=== PATIENT | female | born 1965 | race Caucasian/White ===

== ENCOUNTER → 2017-10-22 09:54 | Outpatient (CLI) | payer OTHER, SELFPAY ==
--- NOTE | 2017-10-22 10:06 | EKG12_ITS ---
Test Reason : PRE-OP Blood Pressure : / mmHG Vent. Rate : 072 BPM Atrial Rate : 072 BPM P-R Int : 148 ms QRS Dur : 078 ms QT Int : 386 ms P-R-T Axes : 066 061 025 degrees QTc Int : 422 ms Normal sinus rhythm Possible Left atrial enlargement Borderline ECG Confirmed by ELLIE CLIFFORD, JOHN ([id number]), photo editor SIERRA MELO ([id number]) on 10/24/2017 3:06:06 PM Referred By: Preet Reed Confirmed By:JOHN ARGUETA MD
[2017-10-22 11:20] LABS: Hematocrit 28.6 % (37-47); Hemoglobin 8.7 g/dl (12.0-15.0); Mean Corp Hgb Conc 30.4 g/gl (32-36); Mean Corpuscular Volume 72.4 fL (81-99); Mean Platelet Vol. 9.3 fl (6.2-12.0); Platelet Count 180 K/mm3 (150-450); RBC Distribution Width CV 19.8 % (11.6-14.6); RBC Distribution Width SD 51.2 fl (35.1-43.9); Red Blood Count 3.95 M/mm3 (4.2-5.4); White Blood Count 5.4 K/mm3 (4.4-11.0)
[2017-10-22 11:21] LABS: Scan Indicated on CBC? Y/N YES- FLAGS NOTED
[2017-10-22 11:42] LABS: Anion Gap 7 (5-15); BUN 18 mg/dL (7-18); BUN/Creat Ratio 26.9 RATIO (10-20); Calcium,Total 8.3 mg/dL (8.5-10.1); Chloride 106 mmol/L (98-107); Creatinine, Serum 0.67 mg/dL (0.55-1.02); EST Glomerular Filtration Rate 99 mL/min (>60); Est Glom Filt Rate - Afr Amer 119 mL/min (>60); Glucose 80 mg/dL (74-106); Potassium 3.7 mmol/L (3.5-5.1); Sodium Level 139 mmol/L (136-145)
[2017-10-22 11:48] LABS: Differential Comment SCANNED
== END ==
PROVIDERS: Family Provider Family Medicine; PCP Family Medicine; Visit Provider Surgery
DX: Z01.810 Encounter for preprocedural cardiovascular examination (principal); Z01.812 Encounter for preprocedural laboratory examination; I87.2 Venous insufficiency (chronic) (peripheral); I83.11 Varicose veins of right lower extremity with inflammation; I83.12 Varicose veins of left lower extremity with inflammation; M79.662 Pain in left lower leg; M79.89 Other specified soft tissue disorders; I87.029 Postthrombotic syndrome with inflammation of unspecified lower extremity
CPT/HCPCS: 36415; 80048; 85027; 93005

== ENCOUNTER → 2017-10-24 14:41 | Outpatient (CLI) | payer OTHER, SELFPAY ==
[2017-10-24 15:57] LABS: Absolute Lymphocyte Count 1.25 X10^3/ul (0.83-4.51); Absolute Neutrophil Count 4.3 X10^3/uL (2.0-7.7); Basophil# 0.03 X10^3/uL; Basophil% 0.5 % (0-1); Eosinophil# 0.14 X10^3/uL; Eosinophils% 2.2 % (0-5); Hematocrit 31.7 % (37-47); Hemoglobin 9.4 g/dl (12.0-15.0); Lymphocyte # 1.25 X10^3/ul (4.0); Mean Corp Hgb Conc 29.7 g/gl (32-36); Mean Corpuscular Hgb 21.4 pg (27.0-32.0); Mean Platelet Vol. 8.7 fl (6.2-12.0); Monocyte# 0.53 X10^3/uL; Monocyte% 8.5 % (0-10); Neutrophil # 4.29 X10^3/uL (2.7-7.7); Neutrophil % 68.6 % (47-70); Platelet Count 186 K/mm3 (150-450); RBC Distribution Width CV 19.5 % (11.6-14.6); RBC Distribution Width SD 51.9 fl (35.1-43.9); White Blood Count 6.3 K/mm3 (4.4-11.0)
[2017-10-24 15:58] LABS: Differential Indicated SCAN CRITERIA MET; POSITIVE COUNT NO; POSITIVE DIFFERENTIAL NO; POSITIVE MORPHOLOGY YES
[2017-10-24 16:26] LABS: Ferritin 3 ng/mL (8-252); Iron 23 ug/dL (50-170); LDH 195 U/L (84-246)
== END ==
PROVIDERS: Family Provider Family Medicine; PCP Family Medicine; Visit Provider Family Medicine
DX: D50.9 Iron deficiency anemia, unspecified (principal)
CPT/HCPCS: 36415; 82728; 83540; 83615; 85025

== ENCOUNTER → 2017-11-06 10:41 | Outpatient (CLI) | payer OTHER, SELFPAY ==
--- NOTE | 2017-11-06 10:43 | VDLE_ITS ---
Reason For Study: LEG PAIN S/P EVLA Procedure LEFT Exam performed in department. CFV is compressible, spontaneous, phasic, competent, and demonstrates normal augmentation. FV is compressible, spontaneous, phasic, competent and demonstrates normal augmentation. POP V is compressible, spontaneous, phasic, competent and demonstrates normal augmentation. T/P Trunk is compressible. PTV is compressible. LT PerV is compressible. GSV occluded s/p EVLA Thrombus filled varicosities noted medial distal thigh and calf. Interpretation Summary Deep veins of the left lower extremity are patent and compressible segmentally. There is no evidence of left lower extremity deep vein thrombosis. Valvular competence appears intact within the proximal deep venous system on the left . The left great saphenous vein is occluded, consistent with a recent endothermal ablation procedure. Acute superficial thrombophlebitis is noted involving superficial varicosities in the left medial thigh and calf. Ordering Physician: Preet Reed Referring Physician: Preet Reed Performed By: Kyleigh Arizmendi RVT
== END ==
PROVIDERS: Family Provider Family Medicine; PCP Family Medicine; Visit Provider Surgery
DX: I87.2 Venous insufficiency (chronic) (peripheral) (principal); I83.10 Varicose veins of unspecified lower extremity with inflammation
CPT/HCPCS: 93971

== ENCOUNTER → 2018-01-19 09:47 | Outpatient (CLI) | payer OTHER, SELFPAY ==
--- NOTE | 2018-01-19 09:40 | VDLE_ITS ---
Reason For Study: CVI RIGHT LEFT CFV is compressible, spontaneous, phasic, CFV is compressible, spontaneous, phasic, competent and demonstrates normal competent, and demonstrates normal augmentation. augmentation. FV is compressible, spontaneous, phasic, FV is compressible, spontaneous, phasic, competent and demonstrates normal competent and demonstrates normal augmentation. augmentation. POP V is compressible, spontaneous, phasic, POP V is compressible, spontaneous, phasic, competent and demonstrates normal competent and demonstrates normal augmentation. augmentation. T/P Trunk is compressible. T/P Trunk is compressible. PTV is compressible. PTV is compressible. RT PerV is compressible. LT PerV is compressible. SFJ is INCOMPETENT GSV and SSv occluded s/p EVLA. GSV is INCOMPETENT with reflux greater than .5 sec and diameter of .54 x .52 cm GSV branch S5 INCOMPETENT with reflux greater than .5 sec and diameter of .48 x .55 cm SSV competent INCOMPETENT supervisor carpenters 15 cm prox to medial malleolus. Interpretation Summary Deep veins of the lower extremities are bilaterally patent and compressible segmentally. There is no evidence of deep vein thrombosis on either side. Valvular competence appears intact within the proximal deep venous systems bilaterally. The right greater saphenous vein appears patent and compressible segmentally. The right sapheno-femoral junction is incompetent . The right greater saphenous vein appears segmentally incompetent. The right small saphenous vein is patent and competent. The right accessory saphenous vein (S5) is incompetent. An incompetent supervisor carpenters vein is noted in the right calf, located 15 centimeters proximal to the right medial malleolus. The left greater saphenous vein and small saphenous vein are occluded, consistent with a prior endothermal ablation procedure. Ordering Physician: Preet Reed Referring Physician: Preet Reed Performed By: Kyleigh Arizmendi RVT
--- NOTE | 2018-01-19 09:47 | DT_ITS ---
This patient was seen during an EMR downtime January 19, 2018 - January 26, 2018. This patient may have a combination of paper and electronic documentation or all paper documentation. All documentation is viewable within the e-chart portion of [email or web address] for each patient visit.
== END ==
PROVIDERS: Family Provider Family Medicine; PCP Family Medicine; Visit Provider Surgery
DX: I87.2 Venous insufficiency (chronic) (peripheral) (principal); I83.10 Varicose veins of unspecified lower extremity with inflammation; Z86.72 Personal history of thrombophlebitis
CPT/HCPCS: 93970

== ENCOUNTER → 2019-01-07 | Outpatient (CLI) | payer OTHER, SELFPAY ==
--- NOTE | 2019-01-07 12:56 | RAD_ITS ---
STUDY: SWALLOWING STUDY REASON FOR EXAM: Female, 53 years old. Dysphagia. TECHNIQUE: The examination was performed with Speech Pathology in attendance. Under fluoroscopic observation, the patient ingested thin barium, thick barium, barium pudding, and barium coated cracker. FLUOROSCOPY TIME: 1:09 minutes/seconds. 1059 fluoroscopic images were obtained. RADIOLOGIST INVOLVEMENT: Radiologist was present and providing direct supervision. COMPARISON: None. FINDINGS: The following was observed during swallowing of the various mixtures of barium: Thin Barium: Transient penetration with ejection upon ingestion of thin liquids. Barium Pudding: There was no evidence of aspiration or laryngeal penetration. Barium Coated Cracker: There was no evidence of aspiration or laryngeal penetration. RAD/Swallowing Function w/Video IMPRESSION: Transient penetration with ejection upon ingestion of thin liquids. The swallow study findings were discussed with the patient by the speech pathologist at the conclusion of the examination. Please see speech pathology report for more information and recommendations. Electronically Signed: Armaan Carlos, at 13:32 EDT , Service support ,
--- NOTE | 2019-01-07 13:05 | SP.MBSS_ITS ---
PRIMARY / SECONDARY DIAGNOSIS: Dysphagia REFERRING PHYSICIAN: Dr. Abdulaziz Kaba CURRENT DIET: regular textures/thin liquids DENTITION: natural dentition in place MENTAL STATUS: WFL for participation in MBS RESPIRATORY STATUS: oxygenating on room air, denies any hx of pneumonia PREVIOUS MODIFIED BARIUM SWALLOW STUDY: n/a REASON FOR REFERRAL: Patient reports difficulty swallowing solid textures (ground beef, chicken, bread, maori fries), described as food ?getting stuck? and ?not going down? w/ patient pointing to sternal region to indicate location, suggestive of esophageal etiology MEDICAL HISTORY: patient denies any history pertinent to this study, denies head/neck surgery, denies prior CVA, denies GERD, denies any past/recurrent pneumonias, denies allergies, denies awareness of any neurological conditions STUDY FINDINGS: Patient participated in a Modified Barium Swallow (MBS) study on 01/07/2019. Dr. Carlos was the radiologist present for this evaluation. This study was recorded in the lateral view and images were sent to PACs for storage. The following consistencies were presented to this patient for analysis of oropharyngeal swallow function: honey thickened liquids and pudding. Results of the MBS are as follows: PENETRATION / ASPIRATION SCALE (GRANDA): 1 = does not enter airway 2 = enters airway/above vocal folds/ejected 3 = enters airway/above vocal folds/not ejected 4 = enters airway/contacts vocal folds/ejected 5 = enters airway/contacts vocal folds/not ejected 6 = enters airway/below vocal folds/ejected 7 = enters airway/below vocal folds/not ejected despite effort 8 = enters airway/below vocal folds/no effort PENETRATION / ASPIRATION SCALE (SCORE): 1. Thin liquid via teaspoon: 1 2. Thin liquid single sip via cup: 2 3. Thin liquid single sip via cup: 2 4. Thin liquid sequential swallows via cup: 3 5. Puddin 6. Cookie: 1 7. Thin liquid single sip via straw: 2 IMPRESSION ORAL PHASE CHARACTERIZED BY: LABIAL SEAL: no labial escape TONGUE CONTROL DURING BOLUS MANIPULATION: cohesive bolus between tongue to palatal seal BOLUS PREPARATION / MASTICATION: timely and efficient chewing and mashing BOLUS TRANSPORT / LINGUAL MOTION: brisk tongue motion ORAL RESIDUE: trace residue lining oral structures PHARYNGEAL PHASE CHARACTERIZED BY: INITIATION OF PHARYNGEAL SWALLOW: bolus head at posterior angle of ramus at first hyoid excursion SOFT PALATE ELEVATION: no bolus between soft palate and pharyngeal wall LARYNGEAL ELEVATION: incomplete superior movement of thyroid cartilage with incomplete approximation of arytenoids cartilage to epiglottic petiole ANTERIOR HYOID EXCURSION: complete anterior movement EPIGLOTTIC MOVEMENT: complete epiglottic inversion LARYNGEAL VESTIBULE CLOSURE AT HEIGHT OF SWALLOW: incomplete laryngeal vestibule closure with narrow column of air/contrast in laryngeal vestibule PHARYNGEAL STRIPPING WAVE: pharyngeal stripping wave present / complete PHARYNGOESOPHAGEAL SEGMENT OPENING: complete distension and complete duration with no obstruction of flow TONGUE BASE RETRACTION: trace column of contrast between tongue base and posterior pharyngeal wall PHARYNGEAL RESIDUE: trace residue within or on pharyngeal structures ESOPHAGEAL PHASE CHARACTERIZED BY: ESOPHAGEAL BOLUS CLEARANCE IN THE UPRIGHT POSITION: complete clearance; esophageal coating EFFECTS OF TREATMENT STRATEGIES ATTEMPTED: Reduced bolus size = effective Reduced rate of intake = effective INTERPRETATION OF RESULTS: Patient presents with mild oropharyngeal dysphagia (R13.12). Oral phase was grossly WFL for mastication/deglutition purposes. Slight delay in triggering of pharyngeal phase of swallow resulting in delayed arytenoid to epiglottic petiole contact which resulted in thin liquid penetration in to the laryngeal vestibule during deglutition. Contrast was expelled from the laryngeal vestibule w/ swallow completion of single sips. With sequential swallows of thin liquid, penetration entered the laryngeal vestibule and accumulated w/ each subsequent swallow and was not ejected completely (trace retention). Limiting liquid bolus volume/rate of intake to small single sips was effective to improve airway protection. Penetration identified during this MBS is likely an incidental finding as the patient did not present for this study with any reports liquid dysphagia, although upon questioning at study conclusion, patient did report that she ?chokes easily? and has ?coughing spells, especially w/ cereal and milk?. No abnormality of pharyngoesophageal segment opening or esophageal clearance identified, although this study only assesses the very upper portion of the esophagus and the patient?s subjective report of symptom location was lower in the esophagus than what this study evaluates. RECOMMENDATIONS DIET: regular textures/thin liquids COMPENSATORY STRATEGIES RECOMMENDED: small sips, one sip at a time, alternate bites with sips to promote pharyngoesophageal clearance of solid, seated upright at 90 degrees during PO intake and remain upright for 30-60 minutes post meal (GERD precaution) NEED FOR DYSPHAGIA INTERVENTION: No further skilled dysphagia intervention is recommended at this time. Should the patient notice an increase in coughing, choking, throat clearing or discomfort associated w/ liquid intake along w/ any signs of pulmonary compromise, a repeat MBS should be considered. REFERRALS: Would strongly consider further referral for esophageal workup due to the symptoms described above by the Patient esophagram/further workup via ENT. ADDITIONAL COMMENTS/RECOMMENDATIONS: Results and recommendations were discussed with the Patient immediately following MBS completion, with the Patient verbalizing understanding and agreement with all recommendations and education provided. IMAGE COUNT: [id number]
== END | disposition home or self-care (01) ==
LOC: RAD 12:53
PROVIDERS: Family Provider Family Medicine; PCP Family Medicine; Referring Provider Family Medicine; Visit Provider Family Medicine
DX: R13.10 Dysphagia, unspecified (principal)
CPT/HCPCS: 74230; 92611

== ENCOUNTER 2019-02-22 07:16 | Day surgery (SDC) | payer SELFPAY ==
[2019-01-27 08:19] VITALS: BMI 31.8
--- NOTE | 2019-01-27 08:40 | HP_ITS ---
Intake Vital Signs 01/27/19 Height 5 ft 3 in 01/27/19 Weight: 180 lb 01/27/19 Body Mass Index (BMI) 31.8 01/27/19 Blood Pressure 183/105 H 01/27/19 Blood Pressure Location Lt brachial 01/27/19 Blood Pressure Position Sitting 01/27/19 Respiratory Rate 18 Intake Visit Reasons: Dysphagia Transportation Dispatcher Required: No Is patient in pain?: No Allergies No Known Allergies Allergy (Unverified 01/27/19 08:21) Medications amlodipine 10 mg tablet 10 mg PO DAILY 01/27/19 [History Confirmed 01/27/19] ferrous sulfate 325 mg (65 mg iron) tablet 325 mg PO DAILY tab 01/27/19 [History Confirmed 01/27/19] ranitidine 150 mg tablet 150 mg PO DAILY 01/27/19 [History Confirmed 01/27/19] [facility] Medical History Raynaud's disease (Acute) Surgical History s/p vein surgery (Acute) Family History Mother Hypertension Sister Hypertension CAD (coronary artery disease) Social History Smoking Status: Never smoker alcohol intake: never HPI HPI HPI: KATHY JACKSON, is a 53 F who presents to the office today for HPI HPI Surgical H&P: Yes HPI: KATHY JACKSON, is a 53 F who presents to the office today for evaluation of dysphagia. Patient has been having issues with food getting stuck in her throat over the last several years. She is unable to eat cheeseburgers and Ukrainian fries when food gets stuck it seems to be in the upper to mid esophagus and causes severe pain. He cannot recall any other triggers. She has never gone to the emergency department with actual food that needed to have it removed with an emergent EGD. In addition the patient needs to have a screening colonoscopy. She has had no change in her bowel or bladder habits ROS General General: No weight change, appetite, fatigue, colon cancer, breast cancer or weakness HEENT HEENT: No difficulty swallowing, eye injury, eye surgery, swollen glands or hoarseness Endo Endocrine: No thyroid disease, diabetes mellitus, thyroid cancer, Hair loss, heat intolerance or cold intolerance Skin Skin: No rash or changing moles Breast Breast: No left breast lump, right breast lump, nipple discharge, breast pain, abnormal mammogram, abnormal US or breast enlargement Musc Musculoskeletal: No back problems, arthritis, rheumatoid arthritis, gout or joint pain Cardio Cardiovascular: No murmur, pacemaker, heart disease, atrial fibrillation, high blood pressure, heart attack, heart stent, palpitations, shortness of breat with exertion or chest pain Psych Psychiatric: No depression, anxiety or hearing voices Resp Respiratory: No shortness of breath, No sleep apnea, No cough, No COPD, No asthma, No emphysema, No wheezing Gastro Gastrointestinal: No abdominal pain, No nausea or vomiting, No diarrhea, No constipation, No blood in stool, Yes acid reflux, No hemorrhoids, No ulcers, No gallbladder problem, No black,tarry stools Helder Hematologic: No blood thinners, No blood disorders, No bleeding, No anemia, Yes blood clots Neuro Neurologic: No system reviewed and no additional complaints, except as docu, No as per HPI, No abnormal walking, No abnormal hearing, No abnormal movements, No abnormal speech, No behavioral changes, No burning sensations, No confusion, No seizure-like activity, No unsteadiness, No dizziness, No localized weakness, No frequent falls, No headache(s), No lack of coordination, No loss of vision, No memory loss, No numbness, No other visual disturbances, No radiating pain, No restless legs, No sensory deficit, No fainting, No tingling, No tremor(s), No weakness, No other Exam Const General: no acute distress, well developed, well hydrated Orientation: oriented to person, oriented to place, oriented to time [facility] Head: normocephalic, atraumatic Ears: external ears normal Mouth: moist mucous membranes Eyes Sclera: sclerae normal Pupils: normal by confrontation Neck Neck: no lymphadenopathy noted Neck mass: No Thyroid: thyroid normal, symmetrical Chest Chest palpation & inspection: normal inspection of the chest Breast Palpation: No nipple discharge Resp Effort & Inspection: normal respiratory effort Auscultation: clear to auscultation bilaterally Percussion: percussion normal Cardio Rate: regular rate Rhythm: regular rhythm Heart Sounds: no murmurs GI Palpation: soft, no hepatosplenomegaly, no masses, nontender Rectal Exam: other Other: Rectal exam deferred. Extrem General: normal to inspection, no clubbing, cyanosis or edema Assessment & Plan Problems 1. Esophageal dysphagia R13.10 2. Encounter for screening for malignant neoplasm of colon Z12.11 Plan I have discussed the above with the patient. I have offered the patient colonoscopy as well as an EGD for evaluation. I have explained the risks/benefits of the procedure and described the procedure. I have discussed the risks with the patient, including but not limited to: infection, bleeding, perforation of the GI tract requiring emergency surgery, inability to complete the procedure, injury to any internal organs, complications of anesthesia, etc. - the patient understands and agrees to proceed. I have answered all the patient's questions to the patient's satisfaction and the patient has no further questions. The patient has been given instructions for the colon cleansing preparation. Coding Level of Care Code Off vis,new,level 3 Diagnoses Esophageal dysphagia R13.10 ??Dysphagia type: esophageal phase Encounter for screening for malignant neoplasm of colon Z12.11 01/27/19 0840 <Electronically signed by Erik ball MD> Date _ Erik Ortiz MD I have re-examined the patient. There are no clinical changes since date of exam.
[2019-02-22 07:41] VITALS: BP 173/97; PULSE 75; RESP 16; TEMP 37; O2SAT 100; BMI 31.6
--- NOTE | 2019-02-22 08:30 | IMM_PTH ---
PATIENT: KATHY JACKSON LOC: EN U#:[id number] AGE/SX: 53/F ROOM: RE02/22/[address]: Dr. Erik Ortiz MD : 1965 BED: DIS: 02/22/2019 SPEC #: [id number] RECD: 02/22/19 14:43 STATUS: ERICKSON REDeanna #: [id number] DAVID: 02/22/19 08:[address]: Erik Ortiz DEPT: IMMUNOHISTOCHEMISTRY RECD BY: Gabriela Kenney ENTERED: 02/22/19 14:45 SP TYPE: IMMUNO OTHR DR: Dr. Abdulaziz Kaba DO Tissues: A - Stomach, NOS B - Esophagus, NOS Procedures: H Pylori (initial) P53 (initial) PHYSICIAN & INSTITUTION [place] [address] SPECIMEN INFORMATION: Tissue Source: A - Antral biopsy, B - Distal esophagus biopsy Clinical Info: Dysphagia, screening Specimen Number: [id number] A & B CPT code: 22119 x2 METHODOLOGY: Deparaffinized sections of prefer/formalin-fixed tissue or PAP/DQ stained slides are incubated with monoclonal/polyclonal antibodies/oligonucleotide probes. Localization is made via biotin free immunoperoxidase method. Appropriate controls are performed and reacted as expected. Results on target cell population are indicated in the following table: RESULTS: ANTIBODY / CLONE RESULT Block A H Pylori (polyclonal) negative Block B P53 (DO-7) negative These tests were developed and their performance characteristics determined by [facility]. They may not have been cleared or approved by the U.S. Food and Drug Administration. The FDA has determined that such clearance or approval is not necessary. INTERPRETATION: A. Antral biopsy: Negative for Helicobacter pylori organisms. B. Distal esophagus biopsy: No evidence of dysplasia. AM:gaby 02/24/19
--- NOTE | 2019-02-22 08:30 | EGD_PTH ---
PATIENT: KATHY JACKSON LOC: EN U#:[id number] AGE/SX: 53/F ROOM: RE02/22/[address]: Dr. Erik Ortiz MD : 1965 BED: DIS: 02/22/2019 SPEC #: [id number] RECD: 02/22/19 11:48 STATUS: ERICKSON MARTHA #: [id number] DAVID: 02/22/19 08:[address]: Erik Ortiz DEPT: SURGICAL PATHOLOGY RECD BY: Emiliano Wing ENTERED: 02/22/19 14:54 SP TYPE: EGD BIOPSY OTHR DR: Dr. Abdulaziz Kaba, DO Tissues: A - Gastric mucous membrane B - Esophagus, NOS Procedures: Special Stain Group II Surgery Specimen Level IV Alcian Blue/PAS (control) HEADER OPERATION: Colonoscopy, EGD ([facility]) PRE-OP DIAGNOSIS: Dysphagia, screening TISSUE SUBMITTED: A - Antral biopsy for histo and H. pylori, B - Distal esophagus biopsy MICROSCOPIC DIAGNOSIS A. Gastric antrum, biopsy: Mild chronic gastritis. See comment. B. Distal esophagus, biopsy: Consistent with changes of reflux. Gastroesophageal junctional mucosa with mild chronic inflammation. No evidence of intestinal metaplasia. No evidence of dysplasia. See comment. AM:gaby 02/23/19 COMMENT A. The results of immunohistochemistry for Helicobacter pylori will be reported separately ([id number]). B. Alcian blue/PAS stain with matched control supports the above diagnosis. Immunohistochemistry ([id number]) supports the above diagnosis. MICROSCOPIC DESCRIPTION Slides are reviewed. GROSS DESCRIPTION A - Received in fixative is one container labeled with the patient's name and designated antral biopsy. The specimen consists of one irregular fragment of light fofana soft tissue that measures 0.3 x 0.3 x 0.1 cm. The specimen is totally submitted in one cassette. B - Received in fixative is one container labeled with the patient's name and designated distal esophagus biopsy. The specimen consists of multiple irregular fragments of light fofana soft tissue that in aggregate measure 1.5 x 0.2 x 0.1 cm. The specimen is totally submitted in one cassette. / VALERIE:gaby 02/22/19 TC:3 CPT: 23206 x2, 36154
[2019-02-22 08:55] LABS: Internal QC Validated? YES +Cl - CLEAR BKGD
[2019-02-22 08:58] LABS: Pregnancy, Urine Negative Negative
[2019-02-22 09:00] VITALS: BP 147/87; BP 173/97; PULSE 70; RESP 22; TEMP 36.6; O2SAT 98
--- NOTE | 2019-02-22 09:00 | OP.ENDO_ITS ---
02/22/2019 Abdulaziz Kaba [address] [place] [address] Re : Upper GI endoscopy procedure for Brandiemaximiliano Guevara Dear Dr. Kaba This procedure was performed on Friday, February 22, 2019. My impressions and recommendations are as follows: Impressions : - LA Grade A reflux esophagitis. Rule out Ramey's esophagus. Biopsied. - Normal stomach. Biopsied. - Normal examined duodenum. No specimens collected. Recommendations : - Discharge patient to home. - Resume previous diet. - Use Prilosec (omeprazole) 40 mg PO BID for 4 weeks. - Repeat upper endoscopy at appointment to be scheduled for surveillance based on pathology results. - Return to my office in 1 week. - Continue present medications. My findings are described in the full procedure note, which is enclosed. If I can be of further assistance, please feel free to contact me at Doctor phone number(s): , Fax: [phone], Work: . Sincerely, MD Erik Lambert MD 02/22/2019 9:00:06 AM This report has been signed electronically.
--- NOTE | 2019-02-22 09:02 | OP.ENDO_ITS ---
02/22/2019 Abdulaziz Kaba [address] [place] [address] Re : Colonoscopy procedure for Brandie Guevara Dear Dr. Kaba This procedure was performed on Friday, February 22, 2019. My impressions and recommendations are as follows: Impressions : - Non-bleeding internal hemorrhoids. - Diverticulosis in the sigmoid colon. No specimens collected. - The examination was otherwise normal. - The examined portion of the ileum was normal. Recommendations : - Discharge patient to home. - Resume previous diet. - Continue present medications. - Repeat colonoscopy in 10 years for screening purposes. - Return to my office in 1 week. My findings are described in the full procedure note, which is enclosed. If I can be of further assistance, please feel free to contact me at Doctor phone number(s): , Fax: [phone], Work: . Sincerely, MD Erik Lambert MD 02/22/2019 9:02:39 AM This report has been signed electronically.
[2019-02-22 09:05] VITALS: BP 152/84; BP 173/97; PULSE 71; RESP 16; O2SAT 96
[2019-02-22 09:10] VITALS: BP 153/90; BP 173/97; PULSE 63; RESP 16; O2SAT 98
[2019-02-22 09:15] VITALS: BP 155/81; BP 173/97; PULSE 58; RESP 16; TEMP 36.4; O2SAT 95
[2019-02-22 09:27] VITALS: BP 173/97
== END 2019-02-22 09:43 | disposition home or self-care (01) ==
LOC: EN 07:17 → AC 07:18
PROVIDERS: Anesthesiology; Family Provider Family Medicine; PCP Family Medicine; Referring Provider Family Medicine; Visit Provider Surgery
PROC: 0DJD8ZZ Inspection of Lower Intestinal Tract, Via Natural or Artificial Opening Endoscopic (ICD-10-PCS; CPT 45378; principal; 2019-02-22 08:25)
DX: Z12.11 Encounter for screening for malignant neoplasm of colon (principal); K64.8 Other hemorrhoids; K57.30 Diverticulosis of large intestine without perforation or abscess without bleeding; K29.50 Unspecified chronic gastritis without bleeding; K21.0 Gastro-esophageal reflux disease with esophagitis; D64.9 Anemia, unspecified; Z86.718 Personal history of other venous thrombosis and embolism
CPT/HCPCS: 43239; 45378; 81025; 88305; 88313; 88342; J7120; J2405

== ENCOUNTER → 2019-09-13 11:56 | Outpatient (CLI) | payer OTHER, SELFPAY ==
[2019-09-13 15:01] LABS: Absolute Lymphocyte Count 1.12 X10^3/uL (0.83-4.51); Absolute Neutrophil Count 5.6 X10^3/uL (2.0-7.7); Basophil# 0.05 X10^3/uL; Basophil% 0.7 % (0-1); Eosinophil# 0.09 X10^3/uL; Eosinophils% 1.2 % (0-5); Hematocrit 41.3 % (37-47); Hemoglobin 13.7 g/dL (12.0-15.0); Lymphocyte # 1.12 X10^3/ul (4.0); Mean Corp Hgb Conc 33.2 g/dL (32-36); Mean Corpuscular Hgb 29.1 pg (27.0-32.0); Mean Corpuscular Volume 87.7 fL (81-99); Mean Platelet Vol. 9.1 fl (6.2-12.0); NRBC Flagged by Analyzer 0 % (0-5); Neutrophil % 74.8 % (47-70); Platelet Count 192 K/mm3 (150-450); RBC Distribution Width CV 13.5 % (11.6-14.6); RBC Distribution Width SD 43.3 fl (35.1-43.9); Red Blood Count 4.71 M/mm3 (4.2-5.4); White Blood Count 7.5 K/mm3 (4.4-11.0)
[2019-09-13 15:04] LABS: Erythrocyte Sedimentation Rate 18 mm/hr (0-30)
[2019-09-13 15:19] LABS: ALB/GLOB Ratio 1.1 RATIO (0.9-2.4); AST(SGOT) 16 U/L (15-37); Alanine Aminotransfer ALT/SGPT 31 U/L (13-56); Alkaline Phosphatase 71 U/L (45-117); Anion Gap 6 (5-15); BUN 16 mg/dL (7-18); BUN/Creat Ratio 22.5 RATIO (10-20); CRP < 2.90 mg/L (0.0-3.0); Chloride 106 mmol/L (98-107); Creatinine, Serum 0.71 mg/dL (0.55-1.02); EST Glomerular Filtration Rate 91 mL/min (>60); Est Glom Filt Rate - Afr Amer 110 mL/min (>60); Ferritin 16 ng/mL (8-252); Globulin 3.7 g/dL (2.2-4.2); Glucose 72 mg/dL (74-106); Iron 105 ug/dL (50-170); Potassium 3.3 mmol/L (3.5-5.1); Protein, Total 7.7 g/dL (6.4-8.2); Sodium Level 138 mmol/L (136-145); Thyroid Stim Hormone (TSH) 1.86 uIU/mL (0.358-3.74); Vitamin B12 > 2000 pg/mL (211-911); Vitamin D,25 Hydroxy 19.3 ng/mL (29.95-100.01)
== END ==
PROVIDERS: PCP Family Medicine; Visit Provider Family Medicine
DX: M62.81 Muscle weakness (generalized) (principal); R53.83 Other fatigue
CPT/HCPCS: 36415; 80053; 82306; 82607; 82728; 83540; 84443; 85025; 85652; 86038; 86140; 86225; 86235

== ENCOUNTER → 2019-10-18 09:51 | Outpatient (CLI) | payer OTHER, SELFPAY ==
[2019-10-20 16:47] LABS: Smith Ab N
== END ==
PROVIDERS: PCP Family Medicine; Visit Provider Family Medicine
DX: R53.83 Other fatigue (principal); R53.1 Weakness; M79.10 Myalgia, unspecified site
CPT/HCPCS: 86038; 86225; 86235

== ENCOUNTER → 2020-12-29 15:56 | Outpatient (CLI) | payer OTHER, SELFPAY ==
[2020-12-29 17:53] LABS: CPK Total, Creatine Kinase 115 U/L (26-192); LDH 169 U/L (84-246)
== END ==
PROVIDERS: PCP Family Medicine; Referring Provider Family Medicine; Visit Provider Family Medicine
DX: M79.10 Myalgia, unspecified site (principal)
CPT/HCPCS: 36415; 82550; 83615; 86225; 86235

== ENCOUNTER → 2021-01-29 14:31 | Outpatient (CLI) | payer OTHER, SELFPAY ==
--- NOTE | 2021-01-29 14:34 | RAD_ITS ---
STUDY: X-RAY - PELVIS REASON FOR EXAM: Female, 55 years old. Inflammatory polyarthropathy TECHNIQUE: One view of the pelvis was obtained. COMPARISON: None. FINDINGS: SI joints are normal. Symphysis pubis is normal. Hips are intact and located with moderate degeneration on the right, mild on the left. There are mature dystrophic ossicles superior to the greater trochanter and lateral to the acetabulum. There are tubal occlusion clips. RAD/Pelvis 1 or 2 Views IMPRESSION: Moderate right, mild left hip degenerative joint disease. Normal SI joints. Electronically Signed: Saul Stubbs MD at 19:33 EDT Tel , Service support ,
[2021-01-29 15:38] LABS: EXAGEN MAILED SPECIMEN
[2021-01-29 17:54] LABS: Absolute Lymphocyte Count 1.25 X10^3/uL (0.83-4.51); Absolute Neutrophil Count 4.7 X10^3/uL (2.0-7.7); Basophil# 0.05 X10^3/uL; Basophil% 0.8 % (0-1); Color, Urine Yellow (Yellow); Eosinophil# 0.09 X10^3/uL; Eosinophils% 1.4 % (0-5); Glucose, Dipstick Normal (Normal); Hematocrit 48.3 % (37-47); Hemoglobin 15.7 g/dL (12.0-15.0); Ketone-Dipstick Negative (Negative); Leukocyte Esterase-Dipstick Negative /ul (Negative); Lymphocyte # 1.25 X10^3/ul (0.83-4.51); Lymphocyte % 18.9 % (19-41); Mean Corp Hgb Conc 32.5 g/dL (32-36); Mean Corpuscular Hgb 28.6 pg (27.0-32.0); Mean Platelet Vol. 9.3 fl (6.2-12.0); Monocyte# 0.48 X10^3/uL; Monocyte% 7.2 % (0-10); NRBC Flagged by Analyzer 0 % (0-5); Neutrophil # 4.74 X10^3/uL (2.7-7.7); Neutrophil % 71.4 % (47-70); Nitrite-Dipstick Negative (Negative); Occult Blood-Urine Negative /ul (Negative); Platelet Count 169 K/mm3 (150-450); Protein-Dipstick Negative (Negative); RBC Distribution Width CV 13.3 % (11.6-14.6); RBC Distribution Width SD 42.7 fl (35.1-43.9); Red Blood Count 5.49 M/mm3 (4.2-5.4); Urine Bilirubin Dipstick Negative (Negative); Urine Clarity Sl. Cloudy (Clear); Urine Urobilinogen Normal (Normal); Urine pH 6.5 (5.0 - 8.0); White Blood Count 6.6 K/mm3 (4.4-11.0)
[2021-01-29 18:05] LABS: International Normalized Ratio 1.1; Prothrombin Time (Protime)PT. 13.3 SECONDS (11.7-14.9)
[2021-01-29 18:06] LABS: Partial Thromboplast Time 30.7 Seconds (24.1-36.2)
[2021-01-29 18:16] LABS: ALB/GLOB Ratio 1.2 RATIO (0.9-2.4); AST(SGOT) 17 U/L (15-37); Alanine Aminotransfer ALT/SGPT 32 U/L (13-56); Albumin, Serum 4.3 g/dL (3.2-5.0); Alkaline Phosphatase 79 U/L (45-117); Anion Gap 9 (5-15); BUN 16 mg/dL (7-18); BUN/Creat Ratio 21.2 RATIO (10-20); Calcium,Total 9.4 mg/dL (8.5-10.1); Chloride 104 mmol/L (98-107); Creatinine, Serum 0.75 mg/dL (0.55-1.02); EST Glomerular Filtration Rate 85 mL/min (>60); Est Glom Filt Rate - Afr Amer 102 mL/min (>60); Globulin 3.7 g/dL (2.2-4.2); Glucose 82 mg/dL (74-106); Potassium 3.5 mmol/L (3.5-5.1); Sodium Level 139 mmol/L (136-145)
[2021-01-29 18:19] LABS: Protein, Urine (Random) 6.9 mg/dL (<11.9); Protein:Creat Ratio 225 mg/g CRE (0-200)
[2021-01-30 08:41] LABS: Hepatitis B Surface Antibody Non-Reactive; Hepatitis B Surface Antigen Non-Reactive (Nonreactive); Hepatitis C Antibody Non-Reactive (Nonreactive)
[2021-02-01 14:23] LABS: Thrombin Time 18.6 sec (0.0-23.0)
[2021-02-02 05:07] LABS: Dilute Prothrombin Time (dPT) 48.7 sec (0.0-55.0); Dilute Russell Viper Venom 40.8 sec (0.0-47.0); Hexagonal Phase Phospholipid 0 sec (0-11); PTT-LA 37.9 sec (0.0-51.9); Thrombin Time 21.2 sec (0.0-23.0); dPT Confirm Ratio 1.43 Ratio (0.00-1.40)
[2021-02-02 08:01] LABS: Interpretation Comment: (.)
== END ==
PROVIDERS: PCP Family Medicine; Referring Provider Internal Medicine Rheumatology; Visit Provider Internal Medicine Rheumatology
DX: M06.4 Inflammatory polyarthropathy (principal); M79.7 Fibromyalgia; M17.0 Bilateral primary osteoarthritis of knee; M47.897 Other spondylosis, lumbosacral region
CPT/HCPCS: 36415; 72170; 80053; 81002; 82570; 84156; 85025; 85598; 85610; 85670; 85730; 86706; 86803; 87340

== ENCOUNTER → 2021-02-08 08:52 | Outpatient (CLI) | payer SELFPAY, OTHER ==
--- NOTE | 2021-02-08 08:53 | ECHOD_ITS ---
Version 2 Reason For Study: Crest syndrome, COATS Procedure This was a 2D Doppler, Color Flow transthoracic echocardiogram. Exam performed in department. Left Ventricle Normal LV size. Left ventricular systolic function is normal. The estimated ejection fraction is 60 %. No regional wall motion abnormalities noted. Right Ventricle Normal RV size. Normal systolic function. Atria Normal left atrium. Normal right atrium. Mitral Valve Normal mitral valve. Mild (1+) eccentric mitral valve insufficiency. Tricuspid Valve Normal tricuspid valve. Unable to estimate RV systolic pressure due to insufficient tricuspid regurgitant envelope. Aortic Valve Normal aortic valve. Trisinus/trileaflet aortic valve. Pulmonic Valve Normal pulmonic valve. Great Vessels Normal aortic root. The pulmonary artery is normal size. Normal inferior vena cava. Pericardium/Pleural No pericardial effusion. MMode/2D Measurements & Calculations LVIDd: 4.5 cm IVSd: 0.84 cm Ao root diam: 3.3 cm LVIDs: 3.3 cm LVPWd: 1.1 cm RVDd: 3.0 cm FS: 25.7 % LAV(MOD-bp): 42.8 ml LVAd ap4: 28.1 cm2 LVAd ap2: 28.3 cm2 LAV(MOD-bp) Indexed: 23.0 ml/m2 LVLd ap4: 7.5 cm LVLd ap2: 8.1 cm LAV(MOD-sp2): 48.6 ml EDV(MOD-sp4): 87.2 ml EDV(MOD-sp2): 84.6 ml LAV(MOD-sp4): 37.0 ml EDV(sp4-el): 89.3 ml EDV(sp2-el): 84.1 ml LVAs ap4: 17.4 cm2 LVAs ap2: 17.8 cm2 LVLs ap4: 6.7 cm LVLs ap2: 7.2 cm ESV(MOD-sp4): 39.5 ml ESV(MOD-sp2): 37.3 ml ESV(sp4-el): 38.6 ml ESV(sp2-el): 37.1 ml EF(MOD-sp4): 54.7 % EF(MOD-sp2): 55.9 % EF(sp4-el): 56.8 % SV(MOD-sp4): 47.7 ml SV(MOD-sp2): 47.3 ml SV(sp4-el): 50.7 ml LA dimension(2D): 3.2 cm LA A4 area: 14.8 cm2 RA A4 area: 16.1 cm2 Doppler Measurements & Calculations MV E max luis: 68.2 cm/sec Lat Peak E' Luis: 10.5 cm/sec Med Peak E' Luis: 7.0 cm/sec MV A max luis: 98.4 cm/sec E/E' lat: 6.5 E/E' med: 9.7 MV E/A: 0.69 Ao V2 max: 159.9 cm/sec LV V1 max: 98.7 cm/sec PA V2 max: 111.5 cm/sec Ao max P.2 mmHg LV V1 max P.9 mmHg ECHO/Echo Complete Interpretation Summary Normal LV size. Left ventricular systolic function is normal. The estimated ejection fraction is 60 %. Mild (1+) eccentric mitral valve insufficiency. Unable to estimate RV systolic pressure due to insufficient tricuspid regurgita nt envelope. Ordering Physician: Apple Mazariegos Referring Physician: Abdulaziz Kaba Performed By: Mirtha Qiu RDCS
== END ==
PROVIDERS: PCP Family Medicine; Referring Provider Internal Medicine Rheumatology; Visit Provider Internal Medicine Rheumatology
DX: M06.4 Inflammatory polyarthropathy (principal); R76.8 Other specified abnormal immunological findings in serum; M79.7 Fibromyalgia; M17.0 Bilateral primary osteoarthritis of knee; M16.0 Bilateral primary osteoarthritis of hip; M47.897 Other spondylosis, lumbosacral region; K21.9 Gastro-esophageal reflux disease without esophagitis; I87.2 Venous insufficiency (chronic) (peripheral); K57.90 Diverticulosis of intestine, part unspecified, without perforation or abscess without bleeding
CPT/HCPCS: 93306

== ENCOUNTER → 2021-04-09 10:21 | Outpatient (CLI) | payer OTHER, SELFPAY ==
[2021-04-09 12:57] LABS: Absolute Lymphocyte Count 1.15 X10^3/uL (0.83-4.51); Absolute Neutrophil Count 3.9 X10^3/uL (2.0-7.7); Basophil# 0.06 X10^3/uL; Eosinophil# 0.21 X10^3/uL; Eosinophils% 3.6 % (0-5); Hematocrit 41.1 % (37-47); Hemoglobin 13.9 g/dL (12.0-15.0); Lymphocyte # 1.15 X10^3/ul (0.83-4.51); Lymphocyte % 19.5 % (19-41); Mean Corp Hgb Conc 33.8 g/dL (32-36); Mean Corpuscular Hgb 29.7 pg (27.0-32.0); Mean Corpuscular Volume 87.8 fL (81-99); Mean Platelet Vol. 8.6 fl (6.2-12.0); Monocyte# 0.53 X10^3/uL; NRBC Flagged by Analyzer 0 % (0-5); Neutrophil # 3.94 X10^3/uL (2.7-7.7); Neutrophil % 66.7 % (47-70); Platelet Count 201 K/mm3 (150-450); RBC Distribution Width CV 13.8 % (11.6-14.6); RBC Distribution Width SD 43.5 fl (35.1-43.9); Red Blood Count 4.68 M/mm3 (4.2-5.4); White Blood Count 5.9 K/mm3 (4.4-11.0)
[2021-04-09 13:18] LABS: ALB/GLOB Ratio 1.3 RATIO (0.9-2.4); AST(SGOT) 17 U/L (15-37); Alanine Aminotransfer ALT/SGPT 35 U/L (13-56); Albumin, Serum 4.1 g/dL (3.2-5.0); Alkaline Phosphatase 83 U/L (45-117); Anion Gap 5 (5-15); BUN 14 mg/dL (7-18); BUN/Creat Ratio 22.5 RATIO (10-20); Calcium,Total 9.1 mg/dL (8.5-10.1); Chloride 106 mmol/L (98-107); Creatinine, Serum 0.62 mg/dL (0.55-1.02); EST Glomerular Filtration Rate 105 mL/min (>60); Est Glom Filt Rate - Afr Amer 128 mL/min (>60); Globulin 3.2 g/dL (2.2-4.2); Glucose 79 mg/dL (74-106); Potassium 3.8 mmol/L (3.5-5.1); Protein, Total 7.3 g/dL (6.4-8.2); Sodium Level 138 mmol/L (136-145)
== END ==
PROVIDERS: PCP Family Medicine; Referring Provider Internal Medicine Rheumatology; Visit Provider Internal Medicine Rheumatology
DX: M06.4 Inflammatory polyarthropathy (principal); Z79.899 Other long term (current) drug therapy; R76.8 Other specified abnormal immunological findings in serum; M34.1 CR(E)ST syndrome; M79.7 Fibromyalgia; M17.0 Bilateral primary osteoarthritis of knee; M16.0 Bilateral primary osteoarthritis of hip; M47.897 Other spondylosis, lumbosacral region; K21.9 Gastro-esophageal reflux disease without esophagitis; I87.2 Venous insufficiency (chronic) (peripheral); K57.90 Diverticulosis of intestine, part unspecified, without perforation or abscess without bleeding
CPT/HCPCS: 36415; 80053; 85025

== ENCOUNTER → 2021-05-29 13:07 | Outpatient (CLI) | payer OTHER, SELFPAY ==
[2021-05-29 14:59] LABS: Absolute Lymphocyte Count 0.72 X10^3/uL (0.83-4.51); Absolute Neutrophil Count 4.8 X10^3/uL (2.0-7.7); Basophil# 0.04 X10^3/uL; Basophil% 0.6 % (0-1); Eosinophil# 0.06 X10^3/uL; Hematocrit 40.3 % (37-47); Hemoglobin 13.2 g/dL (12.0-15.0); Lymphocyte # 0.72 X10^3/ul (0.83-4.51); Lymphocyte % 11.7 % (19-41); Mean Corp Hgb Conc 32.8 g/dL (32-36); Mean Corpuscular Hgb 30.1 pg (27.0-32.0); Mean Corpuscular Volume 91.8 fL (81-99); Mean Platelet Vol. 8.6 fl (6.2-12.0); Monocyte# 0.51 X10^3/uL; Monocyte% 8.3 % (0-10); NRBC Flagged by Analyzer 0 % (0-5); Neutrophil # 4.83 X10^3/uL (2.7-7.7); Neutrophil % 78.1 % (47-70); Platelet Count 203 K/mm3 (150-450); RBC Distribution Width CV 15.4 % (11.6-14.6); Red Blood Count 4.39 M/mm3 (4.2-5.4); White Blood Count 6.2 K/mm3 (4.4-11.0)
[2021-05-29 15:26] LABS: ALB/GLOB Ratio 1.1 RATIO (0.9-2.4); AST(SGOT) 17 U/L (15-37); Alanine Aminotransfer ALT/SGPT 27 U/L (13-56); Albumin, Serum 3.7 g/dL (3.2-5.0); Alkaline Phosphatase 80 U/L (45-117); Anion Gap 7 (5-15); BUN 20 mg/dL (7-18); BUN/Creat Ratio 21.6 RATIO (10-20); Chloride 105 mmol/L (98-107); Creatinine, Serum 0.93 mg/dL (0.55-1.02); EST Glomerular Filtration Rate 67 mL/min (>60); Est Glom Filt Rate - Afr Amer 81 mL/min (>60); Globulin 3.4 g/dL (2.2-4.2); Glucose 104 mg/dL (74-106); Potassium 3.7 mmol/L (3.5-5.1); Protein, Total 7.1 g/dL (6.4-8.2); Sodium Level 138 mmol/L (136-145)
== END ==
PROVIDERS: PCP Family Medicine; Referring Provider Internal Medicine Rheumatology; Visit Provider Internal Medicine Rheumatology
DX: M06.4 Inflammatory polyarthropathy (principal); Z79.899 Other long term (current) drug therapy; R76.8 Other specified abnormal immunological findings in serum; M34.1 CR(E)ST syndrome; M79.7 Fibromyalgia; M17.0 Bilateral primary osteoarthritis of knee; M16.0 Bilateral primary osteoarthritis of hip; M47.897 Other spondylosis, lumbosacral region; K21.9 Gastro-esophageal reflux disease without esophagitis; I87.2 Venous insufficiency (chronic) (peripheral); K57.90 Diverticulosis of intestine, part unspecified, without perforation or abscess without bleeding
CPT/HCPCS: 36415; 80053; 85025

== ENCOUNTER 2021-07-26 22:46 | Emergency (ER) | payer OTHER, SELFPAY ==
[2021-07-26 22:47] VITALS: BP 121/80; PULSE 115; RESP 18; TEMP 36.1; O2SAT 93; BMI 32.3
--- NOTE | 2021-07-27 00:16 | EX.ED.DYSGE1 ---
HPI History of Present Illness Chief Complaint: General Illness Informant: patient Onset/Context/Timing Onset: Days (10) Context: Gradual Onset Timing: Continuous Quality: mostly fatigue Location: all over Current Severity: Severe Maximum Severity: Severe Worsened by: nothing Relieved by: nothing Associated Symptoms Associated Symptoms ED: cough Narrative Narrative: Patient with illness for the last 10 days, fatigue, fevers and chills, headaches, cough, myalgias. Some nausea but no vomiting or diarrhea. No shortness of breath or chest pain. She did not seek care until today, she went to her PCP and had some swabs done including a Covid test which has not returned yet. She is unvaccinated and presenting during delta surge. 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 [facility] Medical History CREST syndrome Raynaud's disease Home Medications amlodipine 10 mg tablet 10 mg PO DAILY PRN 01/27/19 [History Last Taken Unknown] ferrous sulfate 325 mg (65 mg iron) tablet 325 mg PO DAILY tab 01/27/19 [History Last Taken Unknown] ranitidine HCl 150 mg tablet 150 mg PO DAILY 01/27/19 [History Last Taken Unknown] omeprazole 20 mg PO BID 30 Days #60 cap 02/22/19 [Rx Last Taken Unknown] hydroxyzine pamoate 50 mg PO TID PRN PRN #20 capsule 07/27/21 [Rx Last Taken Unknown] ondansetron 8 mg PO Q8H PRN PRN #20 tab 07/27/21 [Rx Last Taken Unknown] Allergy/AdvReac Type Severity Reaction Status Date / Time No Known Allergies Allergy Unverified 03/01/19 09:10 Family History Mother Hypertension Sister Hypertension CAD (coronary artery disease) Surgical History (Updated 03/06/21 @ 18:01 by Marlene Simms) History of esophagogastroduodenoscopy (EGD) Hx of colonoscopy s/p vein surgery Social History Smoking Status: Never smoker alcohol intake: never ROS ROS ED Constitutional Constitutional ED: Reports body ache(s), chills, fatigue, fever(s), headache(s) and malaise Eyes Eyes: Denies change in vision or diplopia ENT ENT ED: Denies rhinorrhea or sore throat Cardiovascular Cardiovascular: Denies chest pain or palpitations Respiratory/Chest Respiratory/Chest: Reports cough; Denies dyspnea or dyspnea on exertion Gastrointestinal Gastrointestinal: Reports nausea; Denies abdominal pain, diarrhea or vomiting Genitourinary Genitourinary ED: Denies dysuria or hematuria Musculoskeletal Musculoskeletal: Denies back pain or neck pain Integumentary Denies abscess or rash Neurologic Neurologic: Reports headache(s); Denies paresthesias or weakness Psychiatric Psychiatric: Reports anxiety; Denies suicidal thoughts EXAM Physical Exam Const Vital Signs: 07/26/21 22:47 07/27/21 00:30 Temperature 96.9 F L Temperature Source Temporal Pulse Rate 115 H Respiratory Rate 18 Respiratory Pattern Normal Blood Pressure 121/80 H Blood Pressure Mean 93 Pulse Ox 93 Oxygen Delivery Method Room Air Positive well nourished and well developed Constitutional Narrative: Malaised-appearing, no distress General Appearance ED: well developed and NAD HEENT Reports moist mucous membranes normocephalic and atraumatic Eyes PERRL and EOMs intact bilaterally Neck full ROM, no lymphadenopathy and supple Resp normal respiratory effort and clear to auscultation bilaterally Cardio regular rate, regular rhythm and no murmurs Rate: Negative for tachycardic GI non-tender and non-distended Auscultation: normoactive bowel sounds Palpation: soft Back/Spine no CVA tenderness General Back: other FROM Extremity normal to inspection and no calf tenderness General Extremety ED: Negative for edema, pulses abnormal or tenderness General Extremity: Negative for edema or pulses abnormal Neuro oriented x3, CN's II-XII intact bilaterally and no sensory deficits noted Sensorium / Orientation: awake and alert Motor Exam: strength 5/5 throughout Psych mental status grossly normal, thought process normal, cooperative, affect normal and speech normal Skin no rashes or lesions noted and no wounds MDM MDM MDM Narrative Medical decision making narrative: Rapid Covid test was obtained solely for the purpose of trying to qualify the patient for monoclonal antibody infusion for which she would be a candidate because of her immunosuppressed state due to methotrexate and her autoimmune disorder. In the meantime her symptoms were treated, giving her Vistaril, Zofran, she took ibuprofen a little earlier and does not have a fever right now. These medicines did help her and she was wanting prescriptions for them. Her rapid Covid did return positive so she will be referred for monoclonal antibody infusion therapy since she is not hypoxic or dyspneic, she was given information on this as well. Discharge Plan Triage Chief Complaint: General Illness ED Provider: Pilo Le Dx/Rx/DC Orders Clinical Impression: COVID-19, Anxiety Instructions: Coronavirus Disease 2019 (COVID-19): Caring for Yourself or Others, ED - COVID Monoclonal AB Infusion ... Prescriptions: New ondansetron [ondansetron] 4 MG tablet 8 mg PO Q8H PRN PRN (Reason: Nausea) Qty: 20 RF: 0 hydroxyzine pamoate [hydroxyzine pamoate] 25 MG capsule 50 mg PO TID PRN PRN (Reason: Anxiety) Qty: 20 RF: 0 No Action amlodipine 10 mg tablet 10 mg PO DAILY PRN (Reason: raynauds disease) RF: 0 ranitidine HCl [Zantac] 150 mg tablet 150 mg PO DAILY RF: 0 ferrous sulfate 325 mg (65 mg iron) tablet 325 mg PO DAILY RF: 0 omeprazole 20 MG capsule 20 mg PO BID 30 Days Qty: 60 RF: 1 Other Ambulatory Orders: COVID Outpatient Monoclonal Antibody Referral (Routine) Timeframe: 1 Day Facility: [facility] - Location: [facility] Ordered By: Dr. Pilo Le Primary Care Provider: Abdulaziz Kaba Referrals: Abdulaziz Kaba DO [Primary Care Provider] - As Needed Activity Restrictions/Additional Instructions: Try to get a home portable pulse oximeter and closely watch your oxygen levels periodically. If you stay below 90% for more than a minute or so, and/or you are feeling like your breathing is getting worse, return to the emergency department for further evaluation. Disposition Disposition: Home, Self Care
[2021-07-27] MEDS: Ondansetron ODT 4 MG Tablet 8 MG PO (00:25)
[2021-07-27] MEDS: hydrOXYzine PAM 25 MG Capsule 50 MG PO (00:26)
== END 2021-07-27 02:11 | disposition home or self-care (01) ==
PROVIDERS: Emergency Provider Emergency Medicine; PCP Family Medicine
DX: U07.1 COVID-19 (principal); F41.9 Anxiety disorder, unspecified; M34.1 CR(E)ST syndrome; Z79.899 Other long term (current) drug therapy
CPT/HCPCS: 87426; 99283

== ENCOUNTER → 2021-07-26 | Outpatient (CLI) | payer OTHER, SELFPAY | END | disposition home or self-care (01) | PROVIDERS: PCP Family Medicine; Referring Provider Family Medicine; Visit Provider Family Medicine | DX: U07.1 COVID-19 (principal) | CPT/HCPCS: 87633; 87635; U0005; U0003 ==

== ENCOUNTER 2021-08-31 08:47 | Outpatient (CLI) | payer OTHER, SELFPAY ==
[2021-08-31 10:06] LABS: Absolute Lymphocyte Count 1.06 X10^3/uL (0.83-4.51); Absolute Neutrophil Count 3.5 X10^3/uL (2.0-7.7); Basophil# 0.03 X10^3/uL; Basophil% 0.6 % (0-1); Eosinophil# 0.11 X10^3/uL; Eosinophils% 2.1 % (0-5); Hematocrit 38.9 % (37-47); Hemoglobin 13.2 g/dL (12.0-15.0); Lymphocyte # 1.06 X10^3/ul (0.83-4.51); Lymphocyte % 20.4 % (19-41); Mean Corp Hgb Conc 33.9 g/dL (32-36); Mean Corpuscular Hgb 31.4 pg (27.0-32.0); Mean Corpuscular Volume 92.6 fL (81-99); Mean Platelet Vol. 8.6 fl (6.2-12.0); Monocyte# 0.49 X10^3/uL; Monocyte% 9.4 % (0-10); NRBC Flagged by Analyzer 0 % (0-5); Neutrophil % 67.3 % (47-70); Platelet Count 170 K/mm3 (150-450); RBC Distribution Width CV 14.9 % (11.6-14.6); RBC Distribution Width SD 49.7 fl (35.1-43.9); White Blood Count 5.2 K/mm3 (4.4-11.0)
[2021-08-31 10:20] LABS: ALB/GLOB Ratio 1.1 RATIO (0.9-2.4); AST(SGOT) 14 U/L (15-37); Alanine Aminotransfer ALT/SGPT 37 U/L (13-56); Albumin, Serum 3.8 g/dL (3.2-5.0); Alkaline Phosphatase 75 U/L (45-117); Anion Gap 6 (5-15); BUN 13 mg/dL (7-18); BUN/Creat Ratio 19.6 RATIO (10-20); Calcium,Total 9.4 mg/dL (8.5-10.1); Chloride 106 mmol/L (98-107); Creatinine, Serum 0.66 mg/dL (0.55-1.02); EST Glomerular Filtration Rate 98 mL/min (>60); Est Glom Filt Rate - Afr Amer 119 mL/min (>60); Globulin 3.6 g/dL (2.2-4.2); Glucose 75 mg/dL (74-106); Potassium 3.8 mmol/L (3.5-5.1); Protein, Total 7.4 g/dL (6.4-8.2); Sodium Level 140 mmol/L (136-145)
== END 2021-08-31 23:59 | disposition short-term general hospital (02) ==
LOC: MTLAB 08:49
PROVIDERS: PCP Family Medicine; Referring Provider Internal Medicine Rheumatology; Visit Provider Internal Medicine Rheumatology
DX: M06.4 Inflammatory polyarthropathy (principal); M34.1 CR(E)ST syndrome; Z79.899 Other long term (current) drug therapy; R76.8 Other specified abnormal immunological findings in serum; M79.7 Fibromyalgia; M25.561 Pain in right knee; M17.0 Bilateral primary osteoarthritis of knee; M16.0 Bilateral primary osteoarthritis of hip; M47.897 Other spondylosis, lumbosacral region; K21.9 Gastro-esophageal reflux disease without esophagitis; I87.2 Venous insufficiency (chronic) (peripheral); K57.90 Diverticulosis of intestine, part unspecified, without perforation or abscess without bleeding
CPT/HCPCS: 36415; 80053; 85025

== ENCOUNTER 2021-10-29 09:30 | Outpatient (CLI) | payer SELFPAY, OTHER ==
--- NOTE | 2021-10-29 15:37 | PFTCOMP ---
COMPLETE PULMONARY FUNCTION TEST INTERPRETATION Brief HPI: Patient is a 56 year old female, currently under the care of myself, who presents to [facility] for complete pulmonary function tests secondary to diagnosis of crest syndrome. Respiratory therapist reports good effort and reproducible results. Interpretation: Forced expiration spirometry shows no large airways obstructive ventilatory defect with an FEV1 of 86% predicted. There is no significant bronchodilator response by strict ATS criteria. Spirograms are of good quality and plateau normally. The respiratory flow volume loop shows a normal pattern. Lung volumes by body plethysmography show a normal total lung capacity at 4.56 L, 97% predicted. All other lung volumes are within normal limits. Diffusion capacity by carbon monoxide is normal at 90% predicted. The airway resistance is normal. No previous pulmonary function tests were available for review. Impression: These pulmonary function tests are within normal limits
== END 2021-10-29 23:59 | disposition home or self-care (01) ==
PROVIDERS: PCP Family Medicine; Referring Provider Internal Medicine Critical Care Medicine; Visit Provider Internal Medicine Critical Care Medicine
DX: M34.1 CR(E)ST syndrome (principal)
CPT/HCPCS: 94060; 94726; 94729

== ENCOUNTER 2021-11-01 11:08 | Outpatient (CLI) | payer SELFPAY, OTHER ==
[2021-11-01 11:15] VITALS: PULSE 104; PULSE 108; PULSE 109; PULSE 111; PULSE 82; PULSE 87; PULSE 92; PULSE 98; O2SAT 97; O2SAT 98; O2SAT 99
--- NOTE | 2021-11-01 13:16 | WT_ITS ---
PSN 6 Minute Walk Test 6 Minute Walk Test 6 Minute Walk Test: 6 Minute Walk Test PSN:6-Minute Walk Test Start: 11/01/21 11:29 Freq: Status: Active Protocol: RESP.6MINW Document 11/01/21 11:15 [facility] (Rec: 11/01/21 11:43 [facility] [id number]) 6 Minute Walk Test Date Performed 11/01/21 Time Performed 11:15 Height 5 ft 3 in Weight: 79.379 kg Weight in Pounds 175.[address]: Dr Ramirez Assistive device used: None Pre-test Oxygen Delivery Method Nasal Cannula Pulse Ox (%) 99 Pulse Rate (60-100 beats/min) 82 Dyspnea Nhan Scale (0-10) 0 Exertion Nhan Scale (6-20) 6 1st minute Oxygen Delivery Method Room Air Pulse Ox (%) 98 Pulse Rate (60-100 beats/min) 104 H 2nd minute Oxygen Delivery Method Room Air Pulse Ox (%) 97 Pulse Rate (60-100 beats/min) 109 H 3rd minute Oxygen Delivery Method Room Air Pulse Ox (%) 97 Pulse Rate (60-100 beats/min) 108 H 4th minute Oxygen Delivery Method Room Air Pulse Ox (%) 98 Pulse Rate (60-100 beats/min) 98 5th minute Oxygen Delivery Method Room Air Pulse Ox (%) 98 Pulse Rate (60-100 beats/min) 92 6th minute Oxygen Delivery Method Room Air Pulse Ox (%) 98 Pulse Rate (60-100 beats/min) 111 H Dyspnea Nhan Scale (0-10) 0 Exertion Nhan Scale (6-20) 11 Post-test Oxygen Delivery Method Room Air Pulse Ox (%) 99 Pulse Rate (60-100 beats/min) 87 Full Laps Walked 19 Partial Lap, Number of Tiles Walked 17 Total Distance Walked (ft) 1138 Interpretation Interpretation: The patient was able to ambulate 1138 feet over the course of 6 minutes on room air with no assist devices or breaks. The patient experienced no significant desaturation, but did have a peak heart rate of 111 bpm. These findings are consistent with a cardiovascular limitation exercise tolerance. Recommendations Recommendations: No supplemental oxygen is indicated at this time.
[2021-11-01 15:16] LABS: Absolute Lymphocyte Count 1.28 X10^3/uL (0.83-4.51); Absolute Neutrophil Count 4.6 X10^3/uL (2.0-7.7); Basophil# 0.05 X10^3/uL; Basophil% 0.8 % (0-1); Eosinophil# 0.17 X10^3/uL; Eosinophils% 2.6 % (0-5); Hematocrit 42.5 % (37-47); Hemoglobin 14.5 g/dL (12.0-15.0); Lymphocyte # 1.28 X10^3/ul (0.83-4.51); Lymphocyte % 19.4 % (19-41); Mean Corp Hgb Conc 34.1 g/dL (32-36); Mean Corpuscular Hgb 30.9 pg (27.0-32.0); Mean Corpuscular Volume 90.6 fL (81-99); Mean Platelet Vol. 9.2 fl (6.2-12.0); Monocyte# 0.49 X10^3/uL; Monocyte% 7.4 % (0-10); NRBC Flagged by Analyzer 0 % (0-5); Neutrophil % 69.6 % (47-70); Platelet Count 200 K/mm3 (150-450); RBC Distribution Width CV 13.2 % (11.6-14.6); RBC Distribution Width SD 43.1 fl (35.1-43.9); Red Blood Count 4.69 M/mm3 (4.2-5.4); White Blood Count 6.6 K/mm3 (4.4-11.0)
[2021-11-01 15:35] LABS: ALB/GLOB Ratio 1.1 RATIO (0.9-2.4); AST(SGOT) 17 U/L (15-37); Alanine Aminotransfer ALT/SGPT 33 U/L (13-56); Albumin, Serum 4.2 g/dL (3.2-5.0); Alkaline Phosphatase 84 U/L (45-117); Anion Gap 6 (5-15); BUN 15 mg/dL (7-18); BUN/Creat Ratio 22.3 RATIO (10-20); Calcium,Total 9.4 mg/dL (8.5-10.1); Chloride 104 mmol/L (98-107); Creatinine, Serum 0.67 mg/dL (0.55-1.02); EST Glomerular Filtration Rate 96 mL/min (>60); Est Glom Filt Rate - Afr Amer 116 mL/min (>60); Estimated Creatinine Clearance 77.56 ml/min; Globulin 3.8 g/dL (2.2-4.2); Glucose 85 mg/dL (74-106); Potassium 3.6 mmol/L (3.5-5.1); Sodium Level 136 mmol/L (136-145)
== END 2021-11-01 23:59 | disposition home or self-care (01) ==
PROVIDERS: PCP Family Medicine; Referring Provider Internal Medicine Critical Care Medicine; Visit Provider Internal Medicine Critical Care Medicine
DX: M06.4 Inflammatory polyarthropathy (principal); M34.1 CR(E)ST syndrome; Z79.899 Other long term (current) drug therapy; R76.8 Other specified abnormal immunological findings in serum; M79.7 Fibromyalgia; M25.561 Pain in right knee; M17.0 Bilateral primary osteoarthritis of knee; M16.0 Bilateral primary osteoarthritis of hip; M47.897 Other spondylosis, lumbosacral region; K21.9 Gastro-esophageal reflux disease without esophagitis; I87.2 Venous insufficiency (chronic) (peripheral); K57.90 Diverticulosis of intestine, part unspecified, without perforation or abscess without bleeding
CPT/HCPCS: 36415; 80053; 85025; 94618

== ENCOUNTER 2021-11-01 13:00 | Outpatient (CLI) | payer SELFPAY, OTHER | END 2021-11-01 23:59 | disposition home or self-care (01) | LOC: SL 13:35 | PROVIDERS: PCP Family Medicine; Visit Provider Internal Medicine Critical Care Medicine | DX: G47.10 Hypersomnia, unspecified (principal) | CPT/HCPCS: 95806 ==

== ENCOUNTER → 2021-12-17 | Outpatient (CLI) | payer OTHER, SELFPAY | END | disposition home or self-care (01) | LOC: SL 12:07 | PROVIDERS: PCP Family Medicine; Visit Provider Nurse Practitioner Acute Care | DX: Z46.89 Encounter for fitting and adjustment of other specified devices (principal) ==

== ENCOUNTER → 2022-05-29 | Outpatient (CLI) | payer SELFPAY, OTHER ==
--- NOTE | 2022-05-29 12:41 | RAD_ITS ---
STUDY: X-RAY - PELVIS REASON FOR EXAM: Female, 56 years old. PAIN TECHNIQUE: One view of the pelvis was obtained. COMPARISON: None. FINDINGS: There is a non-specific bowel gas pattern. Normal visualized soft tissue structures. Normal bilateral iliac wings, sacroiliac joints and visualized sacrum. Normal visualized bilateral superior and inferior pubic rami. Normal pubic symphysis. Normal ischial tuberosities. Surgical clips are seen bilaterally consistent with bilateral tubal ligation. Bilateral pelvic calcifications likely phleboliths. Severe right and moderate left hip joint space narrowing. There is a heterotopic ossification lateral to the right acetabular roof 1 x 1.2 cm. Right hip demonstrates moderate subchondral sclerosis in the superior femoral head, moderate osteophytic spurring at the base of the femoral head and moderate osteophytic spurring at the right acetabular rim. RAD/Pelvis 1 or 2 Views IMPRESSION: Severe right and moderate left hip osteophyte as. Status post tubal ligation. Electronically Signed: Abdulaziz Edwadrs MD, MENDOZA at 15:34 EDT ,
== END | disposition home or self-care (01) ==
LOC: MTRAD 12:39
PROVIDERS: PCP Family Medicine; Referring Provider Family Medicine; Visit Provider Family Medicine
DX: M16.0 Bilateral primary osteoarthritis of hip (principal)
CPT/HCPCS: 72170

== ENCOUNTER 2022-07-12 09:00 | Outpatient (RCR) | payer SELFPAY, OTHER ==
--- NOTE | 2022-06-12 12:30 | HP.PTEVAL ---
Patient's Visit Information KATHY JACKSON is a 56 year old F referred to Physical Therapy by Dr. Pradeep Craig DO with a diagnosis of UNILATERAL NPRIMARY OSTEOARTHRITIS ,RIGHT HIP AND RIGHT OA KNEE. Date of Evaluation: 06/12/22 Physical Therapist: Haja Mckeon, PT, Cert MDT, OCS - Visit Plan Frequency: 2x /Week Duration: 4 Weeks Plan: PT INTERVETIONS ROM/FLEXABLITY ,STRENGTHNEING QUADS/HAMS/HIP ,FUNCTIONAL STRENGTHENING AND MODALTIES PRN - Subjective This 56 y/o female presents to physical therapy OA right hip and knee. Patient has had had right hip pain along with knee pain since Summer 2021. In meantime developed auto-immune disease (CREST ). Patient seen orthopedic DR recommended surgery vs surgery. Patient seen DR bo Bolivar in knee and cortisone . Patient is taking Aleve. Patient pain located right groin region to thigh. Aggravating steps , extended walking /standing ,unable to squat or kneel. Alleviating factor rest. Denies paresthesia/tingling -. Patient pain affects sleeping. Patient condition affects QOL. Patient goal to get stronger and avoid surgery. VOVATION: Nondenominational. SOCAIL: and special needs son - Pain Right Hip Pain Intensity (Out of 10): 8 Pain Intensity Range: 10 Comment: groin .knee Right Knee Pain Intensity (Out of 10): 4 Pain Intensity Range: 10 - Objective POSTURE: mild forward posture. PALPATION: medial/lateral joint line. NEURO: denies paresthesia/tingling. GAIT: antalgic gait right side with decrease stance time. AROM: supine AROM supine knee flexion 30-105 degrees ,hip abduction 25 degrees ,hip flexion 90 degrees. MMT: ( peak force) quads 14,8,hamstrings 13.7 ,hip flexion 10,6 ,hip abduction. STAIRS: one step at time - Special Tests R Hip Scour: Positive R Knee Valgus - MCL: Negative R Knee Varus - LCL: Negative R Knee Patellar Apprehension - PFS: Positive R Knee Patellar Grind - PFS: Positive - Balance/Special Test Scores Lower Extremity Functional Score: 29 - Goals Goal 1:: I with HEP for ROM hip/knee Goal Time Frame: 4-6 Weeks Goal 2:: Patient to demonstrate 40 % improvement with increase function and and less pain Goal Time Frame: 4-6 Weeks Goal 3:: Patient to improve AROM hip/knee by 5-10 degrees to improve gait and stairs Goal Time Frame: 4-6 Weeks Goal 4:: Patient to improve peak force of quads/hip/hamstrings by 5-10 to improve gait and function Goal Time Frame: 4-6 Weeks - Rehabilitation Potential Physical Therapy Diagnosis: This patient has DJD in hip/knee could be candidate for surgery replacement with impairments with ROM decreased hip/knee ,weakness quads/hams ,hip impairs gait and ADLS and difficultly with stairs thus benefit from skilled PT Rehabilitation Potential: Fair - Anticipated Interventions Patient/Client Instruction: Educate patient on: Condition, Plan of Care For the Purpose of:: To decrease pain, To increase ROM, To improve muscle performance and motor function, To improve ability to perform ADL's, To increase tolerance to activity/condition/position, To improve performance and independence with ADL's, To improve health of tissue, To decrease soft tissue restriction, To increase flexibility/ROM, To improve balance, To improve tolerance to ADL's Therapeutic Exercise to Include: Strength training, Power training, Balance training, Flexibilty training, Passive ROM, Active ROM Comment: QUADS/HAMS /HIP For the Purpose of:: To decrease pain, To increase ROM, To improve muscle performance and motor function, To improve ability to perform ADL's, To increase tolerance to activity/condition/position, To improve ability of physical actions for home/community/work/leisure, To improve health of tissue, To decrease soft tissue restriction, To increase flexibility/ROM, To improve tolerance to ADL's TENS: Yes IF ES: Yes Cryotherapy (ice pack, ice massage): Yes Thermo therapy (hot pack): Yes Ultrasound (thermal/non thermal): Yes For the Purpose of:: To decrease pain, To increase ROM, To improve nutrient delivery to tissue, To increase oxygenation perfusion, To decrease soft tissue restriction, To increase flexibility/ROM Thank you for the opportunity to evaluate your patient. For Medicare and Medicare HMO plans, please review the plan of care and approve it. It will need to be FAXED BACK to us at [phone] for Medicare purposes. For Medicare only, by signing this I certify the plan of care. Please let me know if there are questions or concerns regarding this plan of care. Physician Signature: Date:
--- NOTE | 2022-11-21 10:38 | HP.PTDCSUM ---
It has been my pleasure to treat KATHY JACKSON referred by Dr. Pradeep Craig DO, with the diagnosis of UNILATERAL PRIMARY OSTEOARTHRITIS, RIGHT HIP AND RIGHT OA KNEE for a total of 9 visit(s). Discharge Date: Please see the following information for a summary of their discharge status. Subjective: Patient reports pain is about same. extended distance with gait mankes symtom worse Right Hip Pain Intensity (Out of 10): 3 Right Knee Pain Intensity (Out of 10): 3 % Improvement: 30 Objective/Function: Did well with strengthening ex's. handout provided Goal 1:: I with HEP for ROM hip/knee Goal 2:: Patient to demonstrate 40 % improvement with increase function and and less pain Goal 3:: Patient to improve AROM hip/knee by 5-10 degrees to improve gait and stairs Goal 4:: Patient to improve peak force of quads/hip/hamstrings by 5-10 to improve gait and function Plan: RTD If there are questions or concerns regarding this patient's physical therapy, please feel free to call me at [phone]. Thank you for the referral of this patient. Sincerely, Haja Mckeon, PT, Cert MDT, OCS Balance/Gait/Functional tests - Balance/Special Test Scores Lower Extremity Functional Score: 48
== END 2022-07-12 19:00 | disposition home or self-care (01) ==
LOC: PT 09:00
PROVIDERS: PCP Family Medicine; Visit Provider Orthopaedic Surgery
DX: M16.11 Unilateral primary osteoarthritis, right hip (principal); M17.11 Unilateral primary osteoarthritis, right knee
CPT/HCPCS: 97110; 97162

== ENCOUNTER → 2022-07-25 | Outpatient (CLI) | payer SELFPAY, OTHER ==
--- NOTE | 2022-07-25 14:21 | CT_ITS ---
EXAM: CT RIGHT LOWER EXTREMITY WITHOUT INTRAVENOUS CONTRAST CLINICAL INDICATION: templating for right PENNY-joel TECHNIQUE: Helically acquired images were obtained of the right lower extremity without intravenous contrast. 2-D reformats were performed by the technologist. CTDIvol = ( 14.07 ) mGy, DLP = ( 880.61 ) mGycm This CT exam was performed using one or more of the following dose reduction techniques: automated exposure control, adjustment of the mA and/or kV according to patient size, and/or use of iterative reconstruction technique. This report was created using [employer] report [employer] technology. COMPARISON: None. FINDINGS: Endstage/severe right hip osteoarthrosis. Moderate osteoarthrosis of the left hip. At least moderate left and right knee tricompartmental osteoarthrosis with moderate-size left knee joint effusion and small right knee joint effusion. No unusual lytic or sclerotic lesions of bone Degenerative changes of the SI joints, lumbar spine, and pubic symphysis. Intramuscular small ossifications along the anterior aspect of the right hip. Bilateral tubal ligation. No other soft tissue abnormalities within the pelvis. Small fat-containing umbilical hernia. CT/Extremity Lower without Contra IMPRESSION: Preoperative planning study showing severe/end-stage right hip osteoarthrosis. Ancillary findings as above. Electronically Signed: Trenton Gaming MD at 18:06 EST ,
== END | disposition home or self-care (01) ==
LOC: CT 14:20
PROVIDERS: PCP Family Medicine; Referring Provider Orthopaedic Surgery; Visit Provider Orthopaedic Surgery
DX: Z01.818 Encounter for other preprocedural examination (principal); M16.11 Unilateral primary osteoarthritis, right hip; K42.9 Umbilical hernia without obstruction or gangrene; Z96.641 Presence of right artificial hip joint; M25.462 Effusion, left knee; M25.461 Effusion, right knee
CPT/HCPCS: 73700

== ENCOUNTER 2022-08-13 08:26 | Day surgery (SDC) | payer SELFPAY, OTHER ==
--- NOTE | 2022-08-01 09:09 | EKG12_ITS ---
Test Reason : PREOP Blood Pressure : / mmHG Vent. Rate : 078 BPM Atrial Rate : 078 BPM P-R Int : 164 ms QRS Dur : 082 ms QT Int : 410 ms P-R-T Axes : 070 050 035 degrees QTc Int : 467 ms Normal sinus rhythm Normal ECG Confirmed by HODA CLIFFORD, SARAH ([id number]), publications editor LUISITO OLSON ([id number]) on 08/02/2022 10:36:40 AM Referred By: [place] Confirmed By:CRISELDA DRUMMOND MD
[2022-08-01 10:05] LABS: Absolute Lymphocyte Count 0.99 X10^3/uL (0.83-4.51); Absolute Neutrophil Count 3.5 X10^3/uL (2.0-7.7); Basophil# 0.04 X10^3/uL; Basophil% 0.8 % (0-1); Eosinophil# 0.12 X10^3/uL; Eosinophils% 2.3 % (0-5); Hematocrit 41.8 % (37-47); Hemoglobin 13.5 g/dL (12.0-15.0); Lymphocyte # 0.99 X10^3/ul (0.83-4.51); Lymphocyte % 19.2 % (19-41); Mean Corp Hgb Conc 32.3 g/dL (32-36); Mean Corpuscular Hgb 28.8 pg (27.0-32.0); Mean Corpuscular Volume 89.3 fL (81-99); Mean Platelet Vol. 8.8 fl (6.2-12.0); Monocyte# 0.52 X10^3/uL; Monocyte% 10.1 % (0-10); NRBC Flagged by Analyzer 0.4 % (0-5); Neutrophil # 3.47 X10^3/uL (2.7-7.7); Neutrophil % 67.2 % (47-70); Platelet Count 159 K/mm3 (150-450); RBC Distribution Width CV 13.6 % (11.6-14.6); RBC Distribution Width SD 44.6 fl (35.1-43.9); Red Blood Count 4.68 M/mm3 (4.2-5.4); White Blood Count 5.2 K/mm3 (4.4-11.0)
[2022-08-01 10:19] LABS: International Normalized Ratio 1.1; Partial Thromboplast Time 29.4 Seconds (24.1-36.2); Prothrombin Time (Protime)PT. 14.1 SECONDS (11.7-14.9)
[2022-08-01 11:30] LABS: Anion Gap 5 (5-15); BUN 15 mg/dL (7-18); BUN/Creat Ratio 19.7 RATIO (10-20); Chloride 106 mmol/L (98-107); Creatinine, Serum 0.76 mg/dL (0.55-1.02); EST Glomerular Filtration Rate 83 mL/min (>60); Est Glom Filt Rate - Afr Amer 101 mL/min (>60); Glucose 80 mg/dL (74-106); Magnesium 2.2 mg/dL (1.6-2.6); Potassium 3.8 mmol/L (3.5-5.1); Sodium Level 140 mmol/L (136-145)
[2022-08-04 15:27] LABS: Fructosamine 230 umol/L (0-285)
[2022-08-13] VITALS (14 sets, daily range): BP systolic 93–148; BP diastolic 65–85; PULSE 52–84; RESP 14–20; TEMP 35.6–36.6; O2SAT 97–100; BMI 32.7
[2022-08-13 09:25] LABS: Bedside Glucose 85 mg/dL (74-106)
[2022-08-13] MEDS: Lactated Ringers 1,000 ML 999 ML IV (09:50)
[2022-08-13] MEDS: Celecoxib 200 MG Capsule 400 MG PO (09:50)
[2022-08-13] MEDS: Magnesium 1 GM over 15 mins IV (09:50)
[2022-08-13] MEDS: Gabapentin 600 MG Tablet PO (09:51)
[2022-08-13] MEDS: Scopolamine 1mg/72hr Patch 1 PATCH TD (09:51)
[2022-08-13] MEDS: Acetaminophen 500 MG Tablet 1000 MG PO (09:52)
--- NOTE | 2022-08-13 10:51 | PCM.HP.BLA ---
History and Physical Date of Admission: 08/13/22 [facility] [address] [place] [address] OFFICE VISIT Date of Service:? 07/15/22 MR#: [id number] Acct: [id number] Name:KATHY REILLY Rep #: [id number] : 1965 ? ? Provider: Dr. Pradeep Craig, DO Age/Sex:? 56/F ? ? Location: [facility] [place] Status: Signed Intake Intake Visit Reasons:?RIGHT HIP Chief Complaint: right knee Allergies No Known Allergies Allergy (Verified 06/26/22 15:21) Medications amlodipine 10 mg tablet 10 mg PO DAILY PRN raynauds disease 01/27/19 [History Confirmed 07/15/22] cholecalciferol (vitamin D3) 125 mcg (5,000 unit) capsule 125 mcg PO DAILY 06/05/22 [History Confirmed 07/15/22] hydroxychloroquine 200 mg tablet 200 mg PO 06/05/22 [History Confirmed 07/15/22] mecobalamin (vitamin B12) 5,000 mcg chewable tablet 5,000 mcg PO DAILY 06/05/22 [History Confirmed 07/15/22] omeprazole magnesium 20 mg tablet,delayed release (Prilosec OTC) 20 mg PO DAILY 06/05/22 [History Confirmed 07/15/22] PFSH Medical History? COVID-19 CREST syndrome Hypersomnia Raynaud's disease Sleep apnea Surgical History? History of esophagogastroduodenoscopy (EGD) Hx of colonoscopy Hx of dilation and curettage s/p vein surgery Family History? Mother HypertensionSister HypertensionOther CAD (coronary artery disease) Social History? Smoking Status:? Never smoker alcohol intake:? never HPI RIGHT HIP Details: Parts of this documentation were recorded by a scribe, this documentation accurately reflects the service provided and the decisions made by me, Dr. Pradeep Craig, DO 07/15/22 1003. KATHY JACKSON is a 56 year old F here today for? BL leg pain she states that she has right groin pain and lateral hip pain that radiates to the right knee and she has right knee pain. She states that she has left sided anterior thigh pain and left knee pain as well. She does have occasional intermittent numbness of the right anterior knee/thigh that stops at the knee. She states that she also has a burning sensation over the anterior knee when she is standing or ambulation for prolonged periods. Denies any low back pain. She has completed PT for the hips which has not helped with her pain. She did have Euflexxa injections of the right knee 3rd injection was 06/26/22 and this has not been helpful. Denies any surgery of the BL Knees or hips. She has pain with any ambulation. She does take Aleve everyday for her pain. She is being treated with Plaquinil for CREST and Dr. Kaba is managing this . Ortho Exam General General: Yes no acute distress Neurologic: Yes alert and Yes oriented x3 Psychologic: Yes reasonable and appropriate Right Knee Skin/Wound: Yes CDI, No erythema, No ecchymosis and No swelling Homans Sign: No Knee ROM: No ROM-Extension -20 to 0 (lackign 6) and No ROM-Flexion 0-140 (118) Examination: Yes Med jt line tenderness, No Lat jt line tenderness, No Crepitus and Yes Pain with flexion Stability: NML: Anterior Drawer, NML: Posterior Drawer, NML: Varus 0 and NML: Varus 30 and 1+: Valgus 0 and 1+: Valgus 30 (3mm medial gapping d/t joint space narrowing) Patella Translation: 1 Left Knee Patella Translation: 1 Right Hip Skin: No Ecchymosis, No soft tissue swelling and No Erythema Special Tests: No TTP Greater Troch, Yes RROM flexion pain, Yes C sign and Yes FADER Homans Sign: No HIP: 10 internal rotation with reproduction of groin pain 25 external rotation with reproduction of groin pain 4/5 hip flexion with pain over anterior thigh 5/5 abduction 5/5 plantar/dorsiflexion varicose veins Coding Level of Care Code Off vis,est,level 3 Diagnoses Osteoarthritis of right hip? M16.11 Osteoarthritis of right knee? M17.11 Assessment and Plan Assessment and Plan (1) Osteoarthritis of right hip: ?Status:?Acute (2) Osteoarthritis of right knee: ?Status:?Acute Plan Details Additional Comments: reviewed X-rays of patient's right hip and right knee. Personally reviewed x-rays. There is no obvious fracture, dislocation, or lucency noted. Patient educated that she has advanced osteoarthritis of the right hip and the medial compartment of right knee. Educated that the right groin pain and some medial thigh pain can be from the hip arthritis. Treatment options for the right hip are PT, NSAIDS or right PENNY. Risks, benefits and alternatives of surgery reviewed including but not limited to bleeding, infection, nerve, artery and/or tissue damage, fracture, VTE, leg length discrepancy, foot drop, dislocation, need for hip precautions, continued pain and expected post-operative course. Treatment options for the right knee are do nothing or bracing or PT or TKA.?Risks, benefits and alternatives of surgery reviewed including but not limited to bleeding, infection, nerve, artery and/or tissue damage, fracture, VTE, mechanical feel of the knee, continued pain, stiffness and expected post-operative course.?She has failed PT for the hip and knee and she has failed Euflexxa injections for the right knee pain. Educated that the numbness she has over the anterior thigh would more than likely still be present after a PENNY or TKA. Her weakness of the hips and thighs could be secondary to pain. She wishes to proceed with right PENNY and would like surgery 09/03/2022. Recommend 4 weeks of blood thinner post op d/t hx of superficial blood clots. Soap and drinks provided in the office today. Follow up post op or sooner if pain, swelling, numbness or associated symptoms, or concerns develop.? All questions answered. Patient in agreement of plan. 07/15/22 1204 <Electronically signed by Pradeep Craig DO> Date Pradeep Craig DO Cosigner Signature: Date (if applicable) ? CC:? Dr. Abdulaziz Kaba, DO ~ I have examined the patient and the H&P has been reviewed. There are no clinical changes since date of exam.
[2022-08-13] MEDS: Cefazolin 2 GM in 0.9% Normal Saline 100 ML IV (11:00)
--- NOTE | 2022-08-13 11:00 | HIP_PTH ---
PATIENT: KATHY JACKSON LOC: [facility] U#:[id number] AGE/SX: 56/F ROOM: RE08/13/[address]: Dr. Pradeep Craig DO : 1965 BED: DIS: 08/13/2022 SPEC #: [id number] RECD: 08/13/22 13:21 STATUS: ERICKSON REDeanna #: [id number] DAVID: 08/13/22 11:[address]: Pradeep Craig DEPT: SURGICAL PATHOLOGY RECD BY: Emiliano Wing ENTERED: 08/13/22 13:39 SP TYPE: TOTAL HIP OTHR DR: Dr. Abdulaziz Kaba, Tissues: Hip, NOS Procedures: Decalcification bone/plaque Surgery Specimen Level IV HEADER OPERATION: ERAS, total hip replacement robotic arm assist PRE-OP DIAGNOSIS: Osteoarthritis of right hip TISSUE SUBMITTED: Bone and soft tissue ? right hip MICROSCOPIC DIAGNOSIS Right hip bone and soft tissue, total hip replacement/resection: Femoral head with degenerative osteoarthritic changes. VALERIE:gaby 08/16/2022 MICROSCOPIC DESCRIPTION Slides are reviewed. GROSS DESCRIPTION Received is one container labeled with the patient's name and designated bone and soft tissue hip, right. The specimen consists of a fofana femoral head with portion of femoral neck. The femoral head measures 4 x 4.5 x 4 cm and the femoral neck measures up to 0.8 cm in length. The articular surface displays prominent osteophyte formation, eburnation and bone erosion. Also present in the specimen container are multiple irregular fragments of bone reamings measuring in aggregate 6.5 x 6.5 x 3 cm. Telecommunications Switch Technician sections are submitted in two cassettes after decalcification as follows: 1 ? bone reamings, 2 ? femoral head. / VALERIE:gaby 08/13/2022 TC:5 CPT: 65051, 72528
[2022-08-13] MEDS: dexAMETHasone 10 MG/ML Vial IV (11:52)
[2022-08-13] MEDS: Lactated Ringers 1,000 ML 125 ML IV (13:00)
--- NOTE | 2022-08-13 13:16 | PCM.OP.BLANK ---
Operative Report Date of Procedure: 08/13/22 Preoperative diagnosis: Right hip DJD Postoperative diagnosis: Same Procedure: CT-guided Makoplasty assisted left total hip arthroplasty Implants: Stas Accolade II stem size 2, 127 degree neck angle -4 neck length 48 mm Trident II acetabular shell with 25 mm cancellous screw 32 mm ceramic head, 10 degree Trident X3 polyethylene insert. Anesthesia: Spinal EBL: 175 cc Complications: None Condition: Stable to PACU Indication for procedure: This is a 56-year-old female who has had long-standing arthrosis of the hip who has failed conservative treatment and wished to undergo total hip arthroplasty. We did discuss operative versus nonoperative intervention including risks of bleeding, infection , nerve artery tissue damage, need for further surgery, fracture, leg length discrepancy dislocation blood clot and need for postoperative physical therapy and postoperative expectations. An informed consent was signed. Procedure: Patient was met in the preoperative holding area once again the operative extremity was identified by both patient and physician and was marked. Patient was met by anesthesia . Anesthesia was started. patient was then positioned in the lateral decubitus position on a well-padded pegboard with an axillary roll. All bony prominences were checked and padded. The patient was prepped and draped in the usual sterile fashion. A timeout was called to ensure the proper patient procedure and extremity were being contemplated. Anatomic landmarks were palpated and marked for a standard posterior lateral approach. Prior to this the ASIS was palpated and 3 fingerbreadths proximal to this 3 pins were placed at a 45 degree angle into the iliac crest with good purchase, stab incisions were made with a 15 blade into the skin prior to placement. The Makoplasty array was then secured. A 10 blade scalpel was used to make a posterior incision through the skin and subcutaneous tissue. retractors were used and electrocautery was used to maintain meticulous hemostasis and dissect full-thickness flaps until the gluteal fascia was reached. The gluteal fascia was incised in line with the gluteal fibers. The bursal tissue was then freed from the underside and a Charnley retractor was placed. The femoral trochanteric checkpoint was placed and leg length was assessed using the trochanteric checkpoint and an EKG lead that was placed on the knee prior to prepping the leg .the fat pad was then elevated off of the external rotators with electrocautery and the external rotators were dissected off of the greater trochanter including the piriformis and were tagged with #1 Ethibond for later repair. The joint capsule opened with posterior trapdoor technique. The hip was surgically dislocated. The measurement on the preoperative CT from the top of the lesser trochanter to the femoral neck cut was marked Hohmann was placed around the lesser trochanter. A neck cutting guide was used to stephan the neck with a Bovie and an oscillating saw was used complete the femoral neck cut. The femoral head was then removed and sized. We then turned our attention to the acetabulum. A Bovie was used to make a perforation in the anterior joint capsule and a Bueno retractor was placed this was repeated in the 6 o'clock position and a wide ban was placed there. With a long handled knife the labral and pulvinar tissue were removed. We then registered the acetabulum with the pointing array and confirmed our landmarks. Once the socket was thoroughly prepared and labral tissue and pulvinar was removed we single reamed with the robotic arm. We then used the robotic arm to position the acetabular implant and impacted it into place under robotic guidance. We then proceeded to place a posterior superior screw by drilling first measuring and inserting the screw. We then inserted a trial liner. And turned our attention back to the femur at this point a femoral elevator was used. As well as a pointed wide Hohmann around the lesser trochanter and a Hohmann to help retract the gluteus medius. A box chisel was used to remove excess lateral neck followed by a canal finder and a lateralizing reamer. This was followed by sequential broaches. Attention was made of the version within the canal based on preoperative templating. Once the final broach was seated we then trialed reduced the hip it was determined that a 127 degree neck angle with a -4 neck length was the appropriate size. We then checked stability with shuck testing as well as flexion and internal rotation. then proceeded with hip extension and checked leg lengths at the knees and heels as well as with the trochanteric checkpoint and knee EKG lead. At this point trials were removed. A liner was inserted to the cup. The femoral stem was inserted. We re-trialed and then proceeded to impact the femoral head onto the Brody taper. We then surgically reduce the hip check stability again and leg lengths and were satisfied. Betadine rinse was allowed to sit for 5 minutes while everyone changed their gloves. Thorough irrigation was performed. Followed by closure of the external rotators with #2 FiberWire followed by closure of gluteal fascia with #1 Ethibond. 0 Vicryl fat stitches and 2-0 Vicryl subcutaneous stitches and sushil in the skin. Sushil were placed in the skin pin sites over the iliac crest and dressed with a Mepilex dressing. The main incision was dressed with a Mepilex ag dressing and an abduction pillow was placed. Patient tolerated the procedure well there was no intraoperative complications all counts were correct and the patient was brought back to the PACU in stable condition
--- NOTE | 2022-08-13 13:18 | DCINST_ITS ---
Discharge Instructions Activity Weight Bearing Status: Weight bearing as tolerated Dressing / Incision Call your doctor if you observe: Shortness of breath and Chest pain Additional Dressing/Incision Instructions:: Do not shower 72hrs. Begin daily showering warm water antibacterial soap postop day #3( 72hrs Post-operatively) and then daily. Leave the dressing on for 72 hours postoperatively then may remove prior to first shower and change dressing daily after this until no drainage for 2 consecutive days then may leave open to air. Follow hip precautions that were reviewed in hospital. Wear compression stockings, may remove at night. Start physical therapy as directed in hospital. Follow prescriptions instructions do not take any other pain medication or differ dosing without consulting your physician. Do not take oral NSAIDs until blood thinner has been completed , then may begin the day after completion if needed . Call Dr. Craig's office with any concerns. Follow Up Care Please Follow Up With: Pradeep Craig DO When: 2 weeks Test Results: Test results from this visit will be discussed in further detail at your follow- up appointment, if applicable. Discharge Plan Admission Primary Reason for Your Visit: Right total hip arthroplasty Attending Provider: Pradeep Craig Primary Care Provider: Abdulaziz Kaba Discharge Orders/Prescriptions Prescriptions: New acetaminophen [acetaminophen] 500 mg tablet 1,000 mg PO Q6H PRN Qty: 100 0RF cephalexin [cephalexin] 500 mg capsule 1,000 mg PO Q8 Qty: 4 0RF Rx Instructions: take 2 tabs at 9:00 pm and 2 tabs after 5 am when you wake up oxycodone 5 mg tablet 5 - 10 mg PO Q4H PRN (Reason: pain) 7 Days Qty: 60 0RF Eliquis 2.5 mg tablet 2.5 mg PO BID Qty: 42 0RF Rx Instructions: Begin morning after surgery Continued amlodipine 10 mg tablet 10 mg PO DAILY hydroxychloroquine 200 mg tablet 200 mg PO BID Label Comments: TAKE 1 TABLET BY MOUTH ONCE DAILY cholecalciferol (vitamin D3) 125 mcg (5,000 unit) capsule 125 mcg PO DAILY omeprazole magnesium [Prilosec OTC] 20 mg tablet,delayed release (DR/EC) 10 mg PO DAILY mecobalamin (vitamin B12) 5,000 mcg tablet,chewable 5,000 mcg PO DAILY omega-3 fatty acids Capsule 1,000 mg PO DAILY Referrals / Follow Up: Abdulaziz Kaba DO [Primary Care Provider] - Disposition Disposition (needs filled in before D/C Order can be placed): Home, Self Care
--- NOTE | 2022-08-13 13:35 | RAD_ITS ---
STUDY: X-RAY - PELVIS AND RIGHT HIP REASON FOR EXAM: Female, 56 years old. Postoperative evaluation after right total hip arthroplasty. TECHNIQUE: 2 views of the pelvis and hip. COMPARISON: June 05, 2022. FINDINGS: Knee right hip arthroplasty in anatomic alignment with expected post-operative findings. There are no complications noted. RAD/Hip Min 2 Views (Portable) IMPRESSION: Placement of new total hip arthroplasty in anatomic alignment without complications. Electronically Signed: Donald Hu, at 13:57 EST ,
[2022-08-13] MEDS: oxyCODONE 5 MG Tablet PO (17:37)
[2022-08-13] MEDS: Cefazolin 1 GM/50 ML BAG IV (17:37)
== END 2022-08-13 18:23 | disposition home or self-care (01) ==
LOC: SDC 08:28 → AC 08:29
PROVIDERS: Anesthesiology; PCP Family Medicine; Referring Provider Orthopaedic Surgery; Visit Provider Orthopaedic Surgery
PROC: 8E0Y0CZ Robotic Assisted Procedure of Lower Extremity, Open Approach (ICD-10-PCS; CPT 27130; principal; 2022-08-13 10:30)
DX: M16.11 Unilateral primary osteoarthritis, right hip (principal); M34.1 CR(E)ST syndrome; M17.11 Unilateral primary osteoarthritis, right knee; R10.31 Right lower quadrant pain; Z86.16 Personal history of COVID-19; G47.30 Sleep apnea, unspecified; I73.00 Raynaud's syndrome without gangrene
CPT/HCPCS: 29915; 01202; 36415; 73502; 80048; 82962; 82985; 83036; 83735; 85025; 85610; 85730; 86850; 86900; 86901; 87081; 88305; 88311; 93005; 97162; C1776; J7120; J2405; J3475

== ENCOUNTER 2022-10-16 09:30 | Outpatient (RCR) | payer SELFPAY, OTHER ==
--- NOTE | 2022-08-15 10:44 | HP.PTEVAL ---
Patient's Visit Information KATHY JACKSON is a 56 year old F referred to Physical Therapy by Dr. Pradeep Craig DO with a diagnosis of Right THR 08/13/22. Date of Evaluation: 08/15/22 Physical Therapist: Soco Jarrell DPT - Visit Plan Frequency: 2x /Week Duration: 4 Weeks Plan: Right THR 08/13/22. Focus on LE and core strength/stabilization with functional mobility. Educated on importance of movement and indep with mobility- reviewed current HEP - Subjective Right THR 08/13/[address] Maurice - she went home directly after surgery. She has stairs to enter that have a hand rail but then she is all on one floor. Fully I prior to surgery. Worst: 5/10- Agg: movement Best: 0/10 Eases: sitting down- goes away in a min after she sits down. She reports she has pain that starts in the hip that radiates to just below the knee. Describes the pain as dull muscle pains. No N/T in the toes. She was doing therapy before so she has been doing those exercises. Sleep: in the recliner-she feels that she is really itchy so she did not sleep well. She thinks the itchiness is from the anesesia. Goals: get back to all of her normal stuff. She was pretty active until about 3 years ago and then things went downhill. PMHx/Meds: no changes since she was at the hospital for surgery 08/13/22 - Objective Posture: FH, RS- can correct but does not maintain. Gait: Rollator- slightly antalgic with decreased stance on the right LE with hip drop. Stairs: asc/desc 8 recip with 1 HR and single point cane SBA from per pt report HR/TR: able with UE A. Balance: weight shift ROM: Knee: 30 degrees from extn: Hip: 30 degrees of flexion, Extn: neutral, Abd: 10 degrees- very guarded Strength: Core: fair, Hip: Flexion: unable to SLR without max A from PT Flexn: 5 lbs Knee: 4-/5 in available range, Ankle: 5/5 bilateral. Flex: HS: moderate, Gastroc: moderate. - Balance/Special Test Scores Lower Extremity Functional Score: 0 TUG Test Time Seconds: 35 WOMAC Total Score: 96 WOMAC Percentatge: 0 - Goals Goal 1:: Patient will be I with HEP and progression Goal Time Frame: 4-6 Weeks Goal 2:: Patient will ambulate >300 feet with LRD and normalized gait pattern Goal Time Frame: 4-6 Weeks Goal 3:: Patient will asc/desc 8' stairs recip with 1 HR Goal Time Frame: 4-6 Weeks Goal 4:: Patient will perform a TUG in under 10 sec with LRD Goal Time Frame: 4-6 Weeks Goal 5:: Patient will report 80% improvement Goal Time Frame: 4-6 Weeks - Rehabilitation Potential Physical Therapy Diagnosis: Patient presents with hypomobility s/p Right THR 08/13/22: she has decreased LE and core strength/stabilization, flex, proprioception, flex and muscular endurance leading to abnormal gait and decreased ability to perform ADLs. Rehabilitation Potential: Good - Anticipated Interventions Patient/Client Instruction: Educate patient on: Benefits of Fitness Program Therapeutic Exercise to Include: Strength training, Endurance training, Balance training, Coordination, Agility training, Body mechanics, Postural training, Flexibilty training, Neuromotor development, Dynamic Lumbar Stabilization, Scapular Strength/Stabilization For the Purpose of:: To improve muscle performance and motor function Cryotherapy (ice pack, ice massage): Yes Thermo therapy (hot pack): Yes Thank you for the opportunity to evaluate your patient. For Medicare and Medicare HMO plans, please review the plan of care and approve it. It will need to be FAXED BACK to us at [phone] for Medicare purposes. For Medicare only, by signing this I certify the plan of care. Please let me know if there are questions or concerns regarding this plan of care. Physician Signature: Date:
--- NOTE | 2022-09-11 10:44 | HP.PTREVAL_ITS ---
Dr. Pradeep Craig, DO, It has been my pleasure to treat KATHY JACKSON over the last 10 visits for Right THR 08/13/22. Please see the progress note below for an update on the physical therapy plan of care! Subjective: Patient reports that she is a lot better- she still knows that she needs to have her knees replaced and they hold her back more than her hip. She is doing exercises at home. Working with PCP to find a project manager finance. Would like to continue for HEP 1x a week. She reports no pain in the hip and the groin and radiating pain is also completely gone Objective/Function: Posture: FH, RS- can correct but does not maintain. Gait: Single Point Cane- slightly antalgic with decreased stance on the right LE but reports pain in her knees. Stairs: asc/desc 8 recip with 2 HR- reports limited by her knees HR/TR: able with UE A. Balance: 2-3 seconds ROM: Hip: WFL without pain Strength: Core: fair, Hip: 15 Flxn: 40 lbs Knee: 4-/5 in available range, Ankle: 5/5 bilateral. Flex: HS: moderate, Gastroc: moderate. Plan Plan: 09/11/22: 1x a week for 4 weeks- focus on HEP with print outs for compliance at home. IE: Right THR 08/13/22. Focus on LE and core strength/stabilization with functional mobility. Educated on importance of movement and indep with mobility- reviewed current HEP Balance/Gait/Functional tests - Balance/Special Test Scores Lower Extremity Functional Score: 34 TUG Test Time Seconds: 35 Tug Test: >30sec.=impaired mobility WOMAC Total Score: 38 WOMAC Percentage: 60.4200 Goals Goal 1:: Patient will be I with HEP and progression Goal Time Frame: 4-6 Weeks Goal Progress: Progressing Goal 2:: Patient will ambulate >300 feet with LRD and normalized gait pattern Goal Time Frame: 4-6 Weeks Goal Progress: Progressing Goal 3:: Patient will asc/desc 8' stairs recip with 1 HR Goal Time Frame: 4-6 Weeks Goal Progress: Progressing Goal 4:: Patient will perform a TUG in under 10 sec with LRD Goal Time Frame: 4-6 Weeks Goal Progress: Progressing Goal 5:: Patient will report 80% improvement Goal Time Frame: 4-6 Weeks Goal Progress: Progressing Anticipated Interventions Patient/Client Instruction: Educate patient on: Benefits of Fitness Program Therapeutic Exercise to Include: Strength training, Endurance training, Balance training, Coordination, Agility training, Body mechanics, Postural training, Flexibilty training, Neuromotor development, Dynamic Lumbar Stabilization, Scapular Strength/Stabilization For the Purpose of:: To improve muscle performance and motor function Cryotherapy (ice pack, ice massage): Yes Thermo therapy (hot pack): Yes Please do not hesitate to contact me at [phone] by phone or if you have questions or concerns regarding this new plan of care! Sincerely, EDINSON RosarioT
--- NOTE | 2022-10-16 11:41 | HP.PTREVAL ---
Dr. Pradeep Craig, DO, It has been my pleasure to treat KATHY JACKSON over the last 14 visits for Right THR 08/13/22. Please see the progress note below for an update on the physical therapy plan of care! Subjective: Pt. reports overall doing better, but is still having some trouble with hip abd and this difficulty with walking. Pt. is here for her re check this visit. Objective/Function: TU.9 with cane, 14.99 with out. MMT: RLE: ankle 5/5 throughout; knee: ext 43.2#, flexion 20.1#; hip: flexion 17.7#, abd unable to lift., ER in SL unable to lift. LLE: ankle: 5/5 throughout; knee: ext 45.8#, flexion 23.4#; hip: flexion 20.5, abd 15.4#. GAIT: ambulates well with SPC. Normal gait pattern without increase in symptoms. Pt. ambulated 350' with minimal issues. gait without AD, pt. has marked increased in [place] during R stance phase compared with SPC. Other than this she is doing great. I advised her that continuing PT would be warranted at this point in time. pt. requested to do her exercises on her own. With this in mind I gave her more hip abduction exercises and to focus on glute medius and glute maximum strengthening. Pt. consents. Hand outs given with new band. Plan Plan: Pt. to re check in PT in 1 month. She is to work on glute med/max strengthening. Pt. given handouts and new bands to allow for increased strengthening at home. Balance/Gait/Functional tests - Balance/Special Test Scores Lower Extremity Functional Score: 41 TUG Test Time Seconds: 12.9 Tug Test: <20 sec.=mostly independent WOMAC Total Score: 38 WOMAC Percentage: 60.4200 Goals Goal 1:: Patient will be I with HEP and progression Goal Time Frame: 4-6 Weeks Goal Progress: Goal Met Goal 2:: Patient will ambulate >300 feet with LRD and normalized gait pattern Goal Time Frame: 4-6 Weeks Goal Progress: Goal Met Goal 3:: Patient will asc/desc 8' stairs recip with 1 HR Goal Time Frame: 4-6 Weeks Goal Progress: Goal Met Goal 4:: Patient will perform a TUG in under 10 sec with LRD Goal Time Frame: 4-6 Weeks Goal Progress: Progressing Goal 5:: Patient will report 80% improvement Goal Time Frame: 4-6 Weeks Goal Progress: Progressing Anticipated Interventions Patient/Client Instruction: Educate patient on: Benefits of Fitness Program Therapeutic Exercise to Include: Strength training, Endurance training, Balance training, Coordination, Agility training, Body mechanics, Postural training, Flexibilty training, Neuromotor development, Dynamic Lumbar Stabilization, Scapular Strength/Stabilization For the Purpose of:: To improve muscle performance and motor function Cryotherapy (ice pack, ice massage): Yes Thermo therapy (hot pack): Yes Please do not hesitate to contact me at [phone] by phone or if you have questions or concerns regarding this new plan of care! Sincerely, EDINSON EsparzaT
== END 2022-10-16 19:00 | disposition home or self-care (01) ==
LOC: PT 09:30
PROVIDERS: PCP Family Medicine; Referring Provider Orthopaedic Surgery; Visit Provider Orthopaedic Surgery
DX: Z96.641 Presence of right artificial hip joint (principal)
CPT/HCPCS: 97110; 97162; 97164

== ENCOUNTER → 2023-01-28 | Outpatient (CLI) | payer SELFPAY, OTHER ==
--- NOTE | 2023-01-28 12:23 | BI_ITS ---
MAMMOGRAPHY - BILATERAL SCREENING REASON FOR EXAM: Female, 57 years old. Routine annual screening examination. PERTINENT HISTORY: Non-contributory. TECHNIQUE: Digital bilateral breast alexandr (3D mammographic acquisition) in the CC and MLO projections. 2-D mediolateral oblique (MLO) and craniocaudad (CC) views of both breasts were obtained. CAD: Full Field Digital Mammography with Computer Added Detection was performed. COMPARISON: Comparison is made with prior study of October 23, 2011. FINDINGS: Breast Composition: The breasts are heterogeneously dense, which may obscure small masses. There are no dominant masses or suspicious calcifications. No other significant abnormalities are identified. There has been no significant change since the prior study. BI/SCRN MAMM (CAD)W/ALEXANDR BILAT IMPRESSION: Stable bilateral screening mammogram. Yearly follow-up mammogram recommended. (A) ASSESSMENT CATEGORY: BIRADS Category 1: Negative. A letter regarding these results will be sent to the patient by the facility within 30 days. Approximately 10% of breast cancers are not detected by mammography. A normal mammogram should not delay biopsy of a clinically suspicious abnormality. [id number] Electronically Signed: Armaan Carlos MD at 13:23 EDT ,
--- NOTE | 2023-01-28 12:48 | ART_ITS ---
Reason For Study: Bilateral leg pain when walking Procedure A bilateral lower extremity continuous wave Doppler with analog waveform analysis and ankle brachial indexes. Left Segmental Pressures Left brachial= 128mmHg. Left posterior tibial artery = 147mmHg. Left dorsalis pedis artery = 127mmHg. Left digit = 131 mmHg. The left posterior tibial artery waveforms are triphasic. The left dorsalis pedis waveforms are triphasic. Right Segmental Pressures Right brachial= 135mmHg. Right posterior tibial artery = 137mmHg. Right dorsalis pedis artery = 138mmHg. Right digit = 106 mmHg. The right posterior tibial artery waveforms are triphasic. The right dorsalis pedis waveforms are triphasic. Indices The right ankle brachial index by the posterior tibial artery is 1.01. The right ankle brachial index by the dorsalis pedis is 1.02. The right digital-brachial index is 0.79. The left ankle brachial index by the posterior tibial artery is 1.09. The left ankle brachial index by the dorsalis pedis is 0.94. The left digital-brachial index is 0.97. VL/Ankle Brachial Index Interpretation Summary Triphasic Doppler waveforms are noted at ankle level bilaterally. Pulse-volume recordings appear satisfactory at ankle level bilaterally, though diminished at digital level julia aterally. Resting ankle-brachial indices are normal bilaterally. Digital-brachial indices are nor mal bilaterally. There is no evidence of significant arterial occlusive disease in the lower ext remities bilaterally. Ordering Physician: Naun Kaba Referring Physician: NAUN KABA DO Performed By: Damien Durand, RVT
== END | disposition home or self-care (01) ==
PROVIDERS: PCP Family Medicine; Referring Provider Family Medicine; Visit Provider Family Medicine
DX: Z12.31 Encounter for screening mammogram for malignant neoplasm of breast (principal); M79.604 Pain in right leg; M79.605 Pain in left leg
CPT/HCPCS: 77063; 77067; 93922

== ENCOUNTER → 2023-02-05 | Outpatient (CLI) | payer SELFPAY, OTHER ==
--- NOTE | 2023-02-05 10:00 | MRI_ITS ---
STUDY: MRI LUMBAR SPINE WITHOUT CONTRAST REASON FOR EXAM: Female, 57 years old patient with spinal stenosis. TECHNIQUE: Standardized fat and water weighted pulse sequences were obtained in the sagittal and axial planes. COMPARISON: None FINDINGS: T12-L1: Normal endplates. Normal disc height, signal and morphology. Normal bilateral facet joints. Normal central canal and bilateral lateral recesses. Normal bilateral intervertebral neural foramina. Normal lumbar lordosis. There is no substantial scoliosis. Normal conus medullaris that terminates at the T12-L1 level. L1-2: Normal endplates. Normal disc height, signal and morphology. Normal bilateral facet joints. Normal central canal and bilateral lateral recesses. Normal bilateral intervertebral neural foramina. L2-3: There is mild annular disk bulge and osteophyte complex. There is mild degenerative arthropathy of the facet joints. Bilateral neuroforamina are narrowed without MR evidence for nerve impingement. There is no appreciable acquired central canal stenosis. L3-4: There is mild annular disk bulge and osteophyte complex. There is mild degenerative arthropathy of the facet joints. Bilateral neuroforamina are narrowed without MR evidence for nerve impingement. There is no appreciable acquired central canal stenosis. L4-5: There is a mild broad central disc protrusion. The neural foramina are narrowed with potential impingement of the right L4 nerve root at the neural foramen. There is mild central canal stenosis. There is mild degenerative arthropathy of facet joints. L5-S1: There is mild annular disk bulge and osteophyte complex. There is mild degenerative arthropathy of the facet joints. Bilateral neuroforamina are narrowed without MR evidence for nerve impingement. There is no appreciable acquired central canal stenosis. Normal visualized sacral ala. Normal visualized paraspinous soft tissue structures. MRI/Spine Lumbar (Routine) IMPRESSION: Multilevel degenerative changes of the lumbar spine with neural foraminal narrowing and potential nerve root impingement, as described. Electronically Signed: Zee Wang MD at 3:38 EDT ,
== END | disposition home or self-care (01) ==
PROVIDERS: PCP Family Medicine; Referring Provider Family Medicine; Visit Provider Family Medicine
DX: M48.061 Spinal stenosis, lumbar region without neurogenic claudication (principal)
CPT/HCPCS: 72148

== ENCOUNTER → 2025-08-12 | Outpatient (CLI) | payer OTHER, SELFPAY ==
--- OUTSIDE RECORDS SUMMARY | 2025-08-12 11:43 | XMS RPT_ITS | CCD ---
Author Organization [facility] Care Team Providers Care Senior Health Consultant Name Role Phone Dr. Naun Kaba Primary Care Provider [phone] Dr. Naun Kaba Referring Provider Dr. Gerard Ramirez Attending Provider Dr. Gerard Ramirez Referring Provider Dr. Gerard Ramirez Other Provider Dr. Apple Mazariegos Other Provider Dr. Naun Kaba Primary Care Provider [phone] Naun Kaba Referring Provider Dr. Pradeep Craig Attending Provider Dr. Og Rose Attending Provider BROOKE Heredia Attending Provider BROOKE Zamarripa Attending Provider Dr. Pradeep Craig Referring Provider Dr. Pradeep Craig Other Provider Dr. Naun Kaba Primary Care Provider [phone] Dr. Joaquim Cabrera Attending Provider Dr. Augusto Montanez Referring Provider Dr. Pradeep Craig Attending Provider Dr. Pradeep Craig Referring Provider Dr. Pradeep Craig Other Provider Dr. Naun Kaba Referring Provider Dr. Og Rose Attending Provider [phone] Naun Kaba Primary Care Provider [phone] Dr. Naun Kaba Referring Provider [phone] Dr. Pradeep Craig Attending Provider Naun Kaba Primary Care Unavailable Borruso, Pradeep Attending Unavailable Borruso, Pradeep Referring Unavailable Sendy, Naun Primary Care Unavailable Borarie, Pradeep Attending Unavailable Borruso, Pradeep Referring Unavailable Sendy, Naun Primary Care Unavailable Sendy, Naun Referring Unavailable Borruso, Pradeep Attending Unavailable Sendy, Naun Attending Unavailable Sendy, Naun Referring Unavailable Sendy, Naun Primary Care Unavailable Sendy, Naun Primary Care Unavailable Borarie, Pradeep Attending Unavailable Pradeep Craig Referring Unavailable SendyNaun hernandez Attending Unavailable Sendy, Naun Referring Unavailable Sendy, Naun Primary Care Unavailable Sendy, Naun Primary Care Unavailable SendyNaun muñoz Attending Unavailable Sendy, Naun Primary Care Unavailable BorPradeep sargent Attending Unavailable Sendy, Naun Primary Care Unavailable BorPradeep sargent Attending Unavailable Naun Kaba Referring Unavailable Og Rose Attending Unavailable Sendy, Naun Primary Care Unavailable Sendy, Naun Referring Unavailable Sendy, Naun Primary Care Unavailable BorPradeep sargent Attending Unavailable SendyNaun muñoz Referring Unavailable Sendy, Naun Primary Care Unavailable Herbie Heredia Attending Unavailable Anastasia Zamarripa Attending Unavailable Sendy, Naun Primary Care Unavailable SendyNaun hernandez Referring Unavailable Sendy, Naun Primary Care Unavailable SendyNaun muñoz Referring Unavailable BorPradeep sargent Attending Unavailable Augusto Montanez Referring Unavailable Joaquim Cabrera Attending Unavailabl e Sendy, Naun Primary Care Unavailable Sendy, Naun Primary Care Unavailable SendyNaun muñoz Referring Unavailable Borchandniso, Pradeep Attending Unavailable Sendy, Naun Primary Care Unavailable SendyNaun muñoz Referring Unavailable Pradeep Craig Attending Unavailable Sendy, Naun Primary Care Unavailable Og Rose Attending Unavailable Sendy, Naun Primary Care Unavailable BorrusoPradeep Attending Unavailable SendyNaun Referring Unavailable Sendy, Naun Primary Care Unavailable Sendy, Naun Referring Unavailable BorPradeep sargent Attending Unavailable Sendy, Naun Primary Care Unavailable Sendy, Naun Referring Unavailable SendyNaun muñoz Attending Unavailable Sendy, Naun Referring Unavailable Naun Kaba Primary Care Unavailable Pradeep Craig Attending Unavailable Og Rose Attending Unavailable Naun Kaba Primary Care Unavailable Naun Kaba Primary Care Unavailable Pradeep Craig Attending Unavailable Pradeep Craig Consulting Unavailable Pradeep Craig Referring Unavailable Medications Current Medications Medication Drug Class(es) Dates Sig (Normalized) Sig (Original) acetaminophen 500 mg oral tablet (3 sources) Start: 08-13-20 take 1000 mg by mouth every six hours as needed Acetaminophen Active 1000 MG PO EVERY 6 HOURS NEEDED August 13, 2022 1:00am amLODIPine 10 mg oral tablet (5 sources) Dihydropyridine Calcium Channel Rolando Start: 01-28-20 take 10 mg by mouth once daily Amlodipine Active 10 MG PO DAILY January 27, 2019 12:00am cholecalciferol 0.125 mg oral capsule (3 sources) Vitamin D Start: 06-05-20 take 125 ug by mouth once daily Cholecalciferol (Vitamin D3) Active 125 MCG PO DAILY June 05, 2022 12:00am hydroxychloroquine sulfate 200 mg oral tablet (3 sources) Antimalarial, Antirheumatic Agent Start: 06-05-20 take 200 mg by mouth twice daily Hydroxychloroquine Active 200 MG PO TWICE A DAY June 05, 2022 12:00am mecobalamin (3 sources) Start: 06-05-20 take 5000 ug by mouth once daily Mecobalamin (Vitamin B12) Active 5000 MCG PO DAILY June 05, 2022 12:00am Start: 06-05-2022 take 5000 ug by mout h once daily Mecobalamin (Vitamin B12) Active 5000 MCG PO DAILY June 04, 2022 11:00pm Eaton-3 Fatty Acids (3 sources) Start: 07-30-2022 take 1000 mg by mout h once daily Eaton-3 Fatty Acids Active 1000 MG PO DAILY July 30, 2022 1:00am Start: 07-30-2022 take 1000 mg by mouth once carole ly Eaton-3 Fatty Acids Active 1000 MG PO DAILY July 30, 2022 12:00am omeprazole 20 mg delayed release oral tablet (8 sources) Proton Pump Inhibitor Start: 06-05-2022 Omeprazole Magnesium (Prilosec Otc) 20 mg tablet,delayed release (DR/EC) Active 10 MG PO DAILY June 05, 2022 12:00am Start: 02-22-2019 End: 06-05-2022 take 20 mg by mouth twice daily Omeprazole Discontinued 20 MG PO TWICE A DAY 60 30 February 22, 2019 12:00am June 05, 2022 8:54am Completed/Discontinued Medications Medication Drug Class(es) Dates Sig (Normalized) Sig (Original) apixaban 2.5 mg oral tablet (3 sources) Factor Xa Inhibitor Start: 08-13-2022 End: 09-11-2022 take 1 tablet by mouth twice daily in the morning Apixaban (Eliquis) 2.5 mg tablet Discontinued 2.5 MG PO TWICE A DAY August 13, 2022 1:00am September 11, 2022 10:02am Begin morning after surgery cephalexin 500 mg oral capsule (3 sources) Cephalosporin Antibacterial Start: 08-13-2022 End: 08-26-2022 Cephalexin Discontinued 1000 MG PO EVERY 8 HOURS August 13, 2022 1:00am August 26, 2022 10:18am take 2 tabs at 9:00 pm and 2 tabs after 5 am when you wake up ferrous sulfate 325 mg oral tablet (5 sources) Start: 01-27-2019 End: 06-05-2022 take 325 mg by mouth once daily Ferrous Sulfate Discontinued 325 MG PO DAILY January 27, 2019 12:00am June 05, 2022 8:53am hydrOXYzine pamoate 25 mg oral capsule (5 sources) Antihistamine Start: 07-27-2021 End: 06-05-2022 take 50 mg by mouth three times daily as needed Hydroxyzine Pamoate Discontinued 50 MG PO 3 TIMES DAILY NEEDED July 27, 2021 1:00am June 05, 2022 8:54am ondansetron 4 mg disintegrating oral tablet (5 sources) Serotonin-3 Receptor Antagonist Start: 07-27-2021 End: 06-05-2022 take 8 mg by mouth every eight hours as needed Ondansetron Discontinued 8 MG PO EVERY 8 HOURS NEEDED July 27, 2021 1:00am June 05, 2022 8:54am oxyCODONE hydrochloride 5 mg oral tablet (3 sources) Opioid Agonist Start: 08-13-2022 End: 09-11-2022 take 5-10 mg by mouth every four hours Oxycodone Discontinued 5 - 10 MG PO Q4H 60 7 August 13, 2022 September 11, 2022 10:02am raNITIdine 150 mg oral tablet (5 sources) Histamine-2 Receptor Antagonist Start: 01-27-2019 End: 06-05-2022 take 1 tablet by mouth once daily Ranitidine Hcl (Zantac) 150 mg tablet Discontinued 150 MG PO DAILY January 27, 2019 12:00am June 05, 2022 8:54am Problems Active Problems Problem Classification Problem Date Documented Date Episodic/Chronic Anxiety disorders (5 sources) Anxiety; Translations: [Anxiety disorder, unspecified] 08-04-2021 Chronic Cardiac dysrhythmias (3 sources) Palpitations; Translations: [Palpitations] 01-09-2022 Episodic Osteoarthritis (20 sources) Osteoarthritis of right hip joint; Translations: [Unilateral primary osteoarthritis, right hip] Onset: 06-03-2022 Chronic Other aftercare (2 sources) Follow-up status; Translations: [Encounter for other orthopedic aftercare] 08-26-2022 Episodic Other aftercare (2 sources) Encounter for other orthopedic aftercare; Translations: [Unspecified orthopedic aftercare] 08-26-2022 Episodic Other circulatory disease (5 sources) Raynaud's disease; Translations: [Raynaud's syndrome without gangrene] 07-30-2022 Chronic Other circulatory disease (2 sources) Raynaud's syndrome without gangrene; Translations: [Raynaud's syndrome] Chronic Other connective tissue disease (1 source) Pain in right leg; Translations: [Pain in right leg] Onset: 01-27-2023 Episodic Other connective tissue disease (1 source) Pain in left leg; Translations: [Pain in left leg] Onset: 01-27-2023 Episodic Other nervous system disorders (3 sources) Acute postoperative pain; Translations: [Other acute postprocedural pain] 08-13-2022 Episodic Other non-traumatic joint disorders (3 sources) Hip pain; Translations: [Pain in right hip] 06-05-2022 Episodic Other nutritional; endocrine; and metabolic disorders (3 sources) Body mass index 30+ - obesity; Translations: [Body mass index (BMI) 32.0-32.9, adult] 01-09-2022 Chronic Other screening for suspected conditions (not mental disorders or infectious disease) (1 source) Encounter for screening mammogram for malignant neoplasm of breast; Translations: [Encounter for screening mammogram for malignant neoplasm of breast] Onset: 02-04-2023 Episodic Residual codes; unclassified (5 sources) Hypersomnia; Translations: [Hypersomnia, unspecified] 06-05-2022 Chronic Residual codes; unclassified (2 sources) Hypersomnia, unspecified; Translations: [Hypersomnia, unspecified] Chronic Residual codes; unclassified (5 sources) Past history of procedure; Translations: [Other specified postprocedural states] 03-06-2021 Episodic Residual codes; unclassified (5 sources) History of colonoscopy; Translations: [Other specified postprocedural states] 03-06-2021 Episodic Spondylosis; intervertebral disc disorders; other back problems (1 source) Spinal stenosis, lumbar region without neurogenic claudication; Translations: [Spinal stenosis, lumbar region without neurogenic claudication] Onset: 02-07-2023 Episodic Systemic lupus erythematosus and connective tissue disorders (7 sources) CREST syndrome; Translations: [CR(E)ST syndrome] Chronic Viral infection (5 sources) Disease caused by 2019-nCoV; Translations: [COVID-19] 06-05-2022 Episodic Past or Other Problems Problem Classification Problem Date Documented Date Episodic/Chronic Other nervous system disorders (1 source) Other acute postprocedural pain; Translations: [Other acute postprocedural pain] Onset: 09-23-2022 Episodic Other non-traumatic joint disorders (5 sources) Pain in right knee; Translations: [Right knee pain] Onset: 06-05-2022 Episodic Other non-traumatic joint disorders (1 source) Pain in left knee; Translations: [Pain in left knee] Onset: 09-11-2022 Episodic Other non-traumatic joint disorders (1 source) Pain in right hip; Translations: [Pain in right hip] Onset: 06-05-2022 Episodic Unclassified (5 sources) s/p vein surgery 07-30-2022 Results Test Name Value Interpretation Reference Range Facility Spine Lumbar (Routine)on Spine Lumbar (Routine) [facility] Imaging Services [address] [place] [id number] Spine Lumbar (Routine) MR#: [id number] Acct: [id number] Name: KATHY JACKSON Rep #: [id number] : 1965 F 57 From: Zee Wang MD PCP: Dr. Naun Kaba DO Status: REG CLI Study: Spine Lumbar (Routine) Date of Exam: 02/05/23 Exam# [id number] Ordering Dr: Naun Kaba DO STUDY: MRI LUMBAR SPINE WITHOUT CONTRAST REASON FOR EXAM: Female, 57 years old patient with spinal stenosis. TECHNIQUE: Standardized fat and water weighted pulse sequences were obtained in the sagittal and axial planes. COMPARISON: None FINDINGS: T12-L1: Normal endplates. Normal disc height, signal and morphology. Normal bilateral facet joints. Normal central canal and bilateral lateral recesses. Normal bilateral intervertebral neural foramina. Normal lumbar lordosis. There is no substantial scoliosis. Normal conus medullaris that terminates at the T12-L1 level. L1-2: Normal endplates. Normal disc height, signal and morphology. Normal bilateral facet joints. Normal central canal and bilateral lateral recesses. Normal bilateral intervertebral neural foramina. L2-3: There is mild annular disk bulge and osteophyte complex. There is mild degenerative arthropathy of the facet joints. Bilateral neuroforamina are narrowed without MR evidence for nerve impingement. There is no appreciable acquired central canal stenosis. L3-4: There is mild annular disk bulge and osteophyte complex. There is mild degenerative arthropathy of the facet joints. Bilateral neuroforamina are narrowed without MR evidence for nerve impingement. There is no appreciable acquired central canal stenosis. L4-5: There is a mild broad central disc protrusion. The neural foramina are narrowed with potential impingement of the right L4 nerve root at the neural foramen. There is mild central canal stenosis. There is mild degenerative arthropathy of facet joints. L5-S1: There is mild annular disk bulge and osteophyte complex. There is mild degenerative arthropathy of the facet joints. Bilateral neuroforamina are narrowed without MR evidence for nerve impingement. There is no appreciable acquired central canal stenosis. Normal visualized sacral ala. Normal visualized paraspinous soft tissue structures. MRI/Spine Lumbar (Routine) IMPRESSION: Multilevel degenerative changes of the lumbar spine with neural foraminal narrowing and potential nerve root impingement, as described. Electronically Signed: Zee Wang MD at 3:38 EDT , CC: Dr. Naun Kaba DO Suction Plate Roller Hand: Signed Normal [facility] Ankle Brachial Indexon 01-28 Ankle Brachial Index [facility] [address] [place] [address] Ankle Brachial Index 01/28/23 1252 MR#: [id number] Acct: [id number] Name: KATHY JACKSON NIA Rep #: [id number] : 1965 57 From: Preet Reed MD Attending Dr: Dr. Naun Kaba DO Status: REG CLI Ordering Dr: Naun Kaba DO Date: 01/28/23 Location: [facility] Sex: F C Admitted: Reason For Study: Bilateral leg pain when walking Procedure A bilateral lower extremity continuous wave Doppler with analog waveform analysis and ankle brachial indexes. Left Segmental Pressures Left brachial= 128mmHg. Left posterior tibial artery = 147mmHg. Left dorsalis pedis artery = 127mmHg. Left digit = 131 mmHg. The left posterior tibial artery waveforms are triphasic. The left dorsalis pedis waveforms are triphasic. Right Segmental Pressures Right brachial= 135mmHg. Right posterior tibial artery = 137mmHg. Right dorsalis pedis artery = 138mmHg. Right digit = 106 mmHg. The right posterior tibial artery waveforms are triphasic. The right dorsalis pedis waveforms are triphasic. Indices The right ankle brachial index by the posterior tibial artery is 1.01. The right ankle brachial index by the dorsalis pedis is 1.02. The right digital-brachial index is 0.79. The left ankle brachial index by the posterior tibial artery is 1.09. The left ankle brachial index by the dorsalis pedis is 0.94. The left digital-brachial index is 0.97. VL/Ankle Brachial Index Interpretation Summary Triphasic Doppler waveforms are noted at ankle level bilaterally. Pulse-volume recordings appear satisfactory at ankle level bilaterally, though diminished at digital level bilaterally. Resting ankle-brachial indices are normal bilaterally. Digital-brachial indices are normal bilaterally. There is no evidence of significant arterial occlusive disease in the lower extremities bilaterally. Ordering Physician: Naun Kaba Referring Physician: NAUN KABA DO Performed By: Damien Durand, T 01/28/231946 Date Preet Reed MD CC: Dr. Naun Kaba DO Date Dictated: 01/28/232 Date Transcribed: 01/28/231946 Suction Plate Roller Hand: Signed [facility] SCRN MAMM (CAD)W/ALEXANDR BILATo n 01-28-2023 SCRN MAMM (CAD)W/ALEXANDR BILAT [facility] Imaging Services [address] [place] [address] SCRN MAMM (CAD)W/ALEXANDR BILAT MR#: [id number] Acct: [id number] Name: KATHY JACKSON NIA Rep #: [id number] : 1965 F 57 From: Armaan lanier MD PCP: Dr. Naun Kaba DO Status: REG CL Study: SCRN MAMM (CAD)W/ALEXANDR BILAT Date of Exam: 01/16 11/07 Exam# [id number] Ordering Dr: Naun Kaba DO MAMMOGRAPHY - BILATERAL SCREENING REASON FOR EXAM: Female, 57 years old. Routine annual screening examination. PERTINENT HISTORY: Non-contributory. TECHNIQUE: Digital bilateral breast alexandr (3D mammographic acquisition) in the CC and MLO projections. 2-D mediolateral oblique (MLO) and craniocaudad (CC) views of both breasts were obtained. CAD: Full Field Digital Mammography with Computer Added Detection was performed. COMPARISON: Comparison is made with prior study of October 23, 2011. FINDINGS: Breast Composition: The breasts are heterogeneously dense, which may obscure small masses. There are no dominant masses or suspicious calcifications. No other significant abnormalities are identified. There has been no significant change since the prior study. BI/SCRN MAMM (CAD)W/ALEXANDR BILAT IMPRESSION: Stable bilateral screening mammogram. Yearly follow-up mammogram recommended. (A) ASSESSMENT CATEGORY: BIRADS Category 1: Negative. A letter regarding these results will be sent to the patient by the facility within 30 days. Approximately 10% of breast cancers are not detected by mammography. A normal mammogram should not delay biopsy of a clinically suspicious abnormality. [id number] Electronically Signed: Armaan Carlos MD at 13:23 EDT Reading Location ID and State: [facility] / [place] , Service support , CC: Dr. Naun Kaba, Suction Plate Roller Hand: Signed Normal [facility] PT D/C Summary (1)on 023 PT D/C Summary (1) [facility] Physical Therapy Health[address] [place] [address] / REHABILITATION SERVICES DISCHARGE SUMMARY MR#: [id number] Acct: [id number] Name: KATHY JACKSON Rep #: [id number] : 1965 57 From: Haja Mckeon PT, Cert. MD Rivera, OCS Referring Dr.: Dr. Pradeep Craig DO Status: R EG RCR Insurance: [facility] PACKAGE PLAN [facility] It has been my pleasure to treat KATHY JACKSON referred by Dr. Pradeep Craig DO, with the diagnosis of UNILATERAL PRIMARY OSTEOARTHRITIS, RIGHT HIP AND RIGHT OA KNEE for a total of 9 visit(s). Discharge Date: Please see the following information for a summary of their discharge status. Subjective: Patient reports pain is about same. extended distance with gait mankes symtom worse Right Hip Pain Intensity (Out of 10): 3 Right Knee Pain Intensity (Out of 10): 3 % Improvement: 30 Objective/Function: Did well with strengthening ex's. handout provided Goal 1:: I with HEP for ROM hip/knee Goal 2:: Patient to demonstrate 40 % improvement with increase function and and less pain Goal 3:: Patient to improve AROM hip/knee by 5-10 degrees to improve gait and stairs Goal 4:: Patient to improve peak force of quads/hip/hamstrings by 5-10 to improve gait and function Plan: RTD If there are questions or concerns regarding this patient's physical therapy, please feel free to call me at [phone]. Thank you for the referral of this patient. Sincerely, Haja Mckeon PT, Cert MDT, OCS Balance/Gait/Functional tests - Balance/Special Test Scores Lower Extremity Functional Score: 48 11/21/22 1039 CC: Dr. Pradeep Craig DO; Dr. Naun Kaba DO JOAQUÍN Signed Normal [facility] Re-Evaluation - PT (1)on Re-Evaluation - PT (1) [facility] Physical Therapy [address] [place] [address] / REEVALUATION / MEDICARE RECERTIFICATION PHYSICAL THERAPY MR#: [id number] Acct: [id number] Name: KATHY JACKSON Rep #: [id number] : 1965 57 From: Tony Gamez DPT Referring Dr.: Dr. Pradeep Craig, Status:REG RCR Insurance: [facility] PACKAGE PLAN [facility] Dr. Pradeep Craig, DO, It has been my pleasure to treat KATHY JACKSON over the last 14 visits for Right THR 08/13/22. Please see the progress note below for an update on the physical therapy plan of care! Subjective: Pt. reports overall doing better, but is still having some trouble with hip abd and this difficulty with walking. Pt. is here for her re check this visit. Objective/Function: TU.9 with cane, 14.99 with out. MMT: RLE: ankle 5/5 throughout; knee: ext 43.2#, flexion 20.1#; hip: flexion 17.7#, abd unable to lift., ER in SL unable to lift. LLE: ankle: 5/5 throughout; knee: ext 45.8#, flexion 23.4#; hip: flexion 20.5, abd 15.4#. GAIT: ambulates well with SPC. Normal gait pattern without increase in symptoms. Pt. ambulated 350' with minimal issues. gait without AD, pt. has marked increased in tren[place] during R stance phase compared with SPC. Other than this she is doing great. I advised her that continuing PT would be warranted at this point in time. pt. requested to do her exercises on her own. With this in mind I gave her more hip abduction exercises and to focus on glute medius and glute maximum strengthening. Pt. consents. Hand outs given with new band. Plan Plan: Pt. to re check in PT in 1 month. She is to work on glute med/max strengthening. Pt. given handouts and new bands to allow for increased strengthening at home. Balance/Gait/Functional tests - Balance/Special Test Scores Lower Extremity Functional Score: 41 TUG Test Time Seconds: 12.9 Tug Test: <20 sec.=mostly independent WOMAC Total Score: 38 WOMAC Percentage: 60.4200 Goals Goal 1:: Patient will be I with HEP and progression Goal Time Frame: 4-6 Weeks Goal Progress: Goal Met Goal 2:: Patient will ambulate >300 feet with LRD and normalized gait pattern Goal Time Frame: 4-6 Weeks Goal Progress: Goal Met Goal 3:: Patient will asc/desc 8' stairs recip with 1 HR Goal Time Frame: 4-6 Weeks Goal Progress: Goal Met Goal 4:: Patient will perform a TUG in under 10 sec with LRD Goal Time Frame: 4-6 Weeks Goal Progress: Progressing Goal 5:: Patient will report 80% improvement Goal Time Frame: 4-6 Weeks Goal Progress: Progressing Anticipated Interventions Patient/Client Instruction: Educate patient on: Benefits of Fitness Program Therapeutic Exercise to Include: Strength training, Endurance training, Balance training, Coordination, Agility training, Body mechanics, Postural training, Flexibilty training, Neuromotor development, Dynamic Lumbar Stabilization, Scapular Strength/Stabilization For the Purpose of:: To improve muscle performance and motor function Cryotherapy (ice pack, ice massage): Yes Thermo therapy (hot pack): Yes Please do not hesitate to contact me at [phone] by phone or if you have questions or concerns regarding this new plan of care! Sincerely, Tony Gamez, CHAPARRITA 10/16/22 1141 CC: Dr. Pradeep Craig DO; Dr. Naun Kaba DO CLS Signed For Medicare only, by signing this I certify the plan of care. Physicians Signature Date Normal [facility] Orthopedic Visit Reporton Orthopedic Visit Report [facility] [address] [place] [address] OFFICE VISIT Date of Service: 10/09/22 MR#: [id number] Acct: [id number] Name: KATHY JACKSON NIA Rep #: [id number] : 1965 Provider: Dr. Pradeep zhao DO Age/Sex: 57/F [place] [facility] Status: Signed Intake Vital Signs 08/13/22 09:32 Height 5 ft 3 in Intake Visit Reasons: LEFT KNEE Is patient in pain?: Yes Pain scale (1-10): 2 Allergies No Known Allergies Allergy (Verified 10/09/22 10:14) Medications amlodipine 10 mg tablet 10 mg PO DAILY RAYNAUDS 01/27/19 [History Confirmed 10/09/22] cholecalciferol (vitamin D3) 125 mcg (5,000 unit) capsule 125 mcg PO DAILY 06/05/22 [History Confirmed 10/09/22] hydroxychloroquine 200 mg tablet 200 mg PO BID 06/05/22 [History Confirmed 10/09/22] mecobalamin (vitamin B12) 5,000 mcg chewable tablet 5,000 mcg PO DAILY 06/05/22 [History Confirmed 10/09/22] omeprazole magnesium 20 mg tablet,delayed release (Prilosec OTC) 10 mg PO DAILY 06/05/22 [History Confirmed 10/09/22] omega-3 fatty acids 1,000 mg PO DAILY 07/30/22 [History Confirmed 10/09/22] acetaminophen 500 mg tablet 1,000 mg PO Q6H PRN #100 tabs 08/13/22 [Rx Confirmed 10/09/22] PFSH Medical History Arthritis COVID-19 CPAP (continuous positive airway pressure) dependence CREST syndrome DVT (deep venous thrombosis) Gastric reflux History of echocardiogram History of edema History of pain when walking History of steroid therapy Hypersomnia Low iron Non-smoker Post-menopausal Raynaud's disease Shortness of breath on exertion Walker as ambulation aid Wears glasses Surgical History History of esophagogastroduodenoscopy (EGD) Hx of colonoscopy Hx of dilation and curettage s/p vein surgery Family History Mother Hypertension Sister Hypertension Other CAD (coronary artery disease) Social History Smoking Status: Never smoker alcohol intake: never HPI LEFT KNEE Details: Parts of this documentation were recorded by a scribe, this documentation accurately reflects the service provided and the decisions made by me, Dr. Pradeep Craig, DO 10/09/22 1003. KATHY JACKSON is a 57 year old F here today for 3rd left knee euflexxa injection. States that her knee is still stiff and hurts when she tries to get up. Denies any concerns with the injections. Rates her pain 2/10. Ortho Exam General General: Yes no acute distress Neurologic: Yes alert and Yes oriented x3 Psychologic: Yes reasonable and appropriate Left Knee Skin/Wound: Yes CDI, No ecchymosis, No erythema and No swelling Knee ROM: Yes ROM-Extension -20 to 0 (-4) and Yes ROM-Flexion 0-140 (103) Examination: Yes med jt line tenderness, No Lat jt line tenderness, Yes Crepitus, No TTP Pes Anserine and No Illiotibial band tenderness Stability: NML: Anterior Drawer, NML: Posterior Drawer, NML: Valgus 30 (3mm medial gapping) and NML: Varus 30 KNEE: varus deformity, knee high compression stockings to help with swelling. palpable pedal pulses Office Meds Euflexxa Performing Provider: Pradeep Craig DO Administered by: Pradeep Craig DO on 10/09/22 10:14 Dose Route Admin Location Lot Number Expiration Date SDC Manufactu rer 20 mg intra-articular left knee [id number] 07/20/23 [address]-0 [employer] Supplemental Info 09/23/2022 x-ray right hip: Status post total hip arthroplasty with good interfaces and positioning no concern 09/11/2022 x-ray left knee: [id number] medial compartment arthrosis moderate to severe patellofemoral arthrosis 06/05/2022 x-ray right hip: read as :End-stage right hip arthrosis with subchondral changes in the femoral head suggesting AVN. Orthopedic surgery consultation recommended 06/05/2022 x-ray right knee: Moderate to severe medial compartment narrowing moderate patellofemoral arthrosis with moderate spurs 05/29/2022 AP pelvis x-ray: Advanced right hip arthrosis heterotopic ossification lateral to right acetabulum left hip does demonstrate degenerative change to a lesser degree but moderate narrowing superiorly Coding Level of Care Code Off vis,est,level 3 Diagnoses Osteoarthritis of left knee M17.12 Assessment and Plan Assessment and Plan (1) Osteoarthritis of left knee: Status: Acute Orders: Orders Euflexxa Injection Today M17.12 - Unilateral primary osteoarthritis, left knee Plan She may have the injections every 6 months as needed. Follow up on an as needed basis for her left knee or sooner if pain, swelling, numbness or associated symptoms, or concerns develop. All questions answered. Patient in agreem (more content not included)... Normal [facility] Orthopedic Visit Reporton Orthopedic Visit Report [facility] [address] [place] [address] OFFICE VISIT Date of Service: 10/02/22 MR#: [id number] Acct: [id number] Name: KATHY JACKSON Rep #: [id number] : 1965 Provider: Dr. Pradeep zhao DO Age/Sex: 57/F [place] [facility] Status: Signed Intake Vital Signs 08/13/22 09:32 Height 5 ft 3 in Intake Visit Reasons: LEFT KNEE Chief Complaint: right knee Allergies No Known Allergies Allergy (Verified 10/02/22 10:06) Medications amlodipine 10 mg tablet 10 mg PO DAILY RAYNAUDS 01/27/19 [History Confirmed 10/02/22] cholecalciferol (vitamin D3) 125 mcg (5,000 unit) capsule 125 mcg PO DAILY 06/05/22 [History Confirmed 10/02/22] hydroxychloroquine 200 mg tablet 200 mg PO BID 06/05/22 [History Confirmed 10/02/22] mecobalamin (vitamin B12) 5,000 mcg chewable tablet 5,000 mcg PO DAILY 06/05/22 [History Confirmed 10/02/22] omeprazole magnesium 20 mg tablet,delayed release (Prilosec OTC) 10 mg PO DAILY 06/05/22 [History Confirmed 10/02/22] omega-3 fatty acids 1,000 mg PO DAILY 07/30/22 [History Confirmed 10/02/22] acetaminophen 500 mg tablet 1,000 mg PO Q6H PRN #100 tabs 08/13/22 [Rx Confirmed 10/02/22] PFSH Medical History Arthritis COVID-19 CPAP (continuous positive airway pressure) dependence CREST syndrome DVT (deep venous thrombosis) Gastric reflux History of echocardiogram History of edema History of pain when walking History of steroid therapy Hypersomnia Low iron Non-smoker Post-menopausal Raynaud's disease Shortness of breath on exertion Walker as ambulation aid Wears glasses Surgical History History of esophagogastroduodenoscopy (EGD) Hx of colonoscopy Hx of dilation and curettage s/p vein surgery Family History Mother Hypertension Sister Hypertension Other CAD (coronary artery disease) Social History Smoking Status: Never smoker alcohol intake: never HPI LEFT KNEE Details: Parts of this documentation were recorded by a scribe, this documentation accurately reflects the service provided and the decisions made by me, Dr. Pradeep Craig DO 10/02/22 0802. KATHY JACKSON is a 57 year old F here today for her left knee 2nd Euflexxa injection. She states that she has discomfort in her knee but it isn't painful until she is sitting down for awhile then gets up and that is when she gets pain in the back of her knee. She is ambulating with a cane. Ortho Exam General General: Yes no acute distress Neurologic: Yes alert and Yes oriented x3 Psychologic: Yes reasonable and appropriate Left Knee Skin/Wound: Yes CDI, No ecchymosis, No erythema and No swelling Knee ROM: Yes ROM-Extension -20 to 0 (-4) and Yes ROM-Flexion 0-140 (103) Examination: Yes med jt line tenderness, No Lat jt line tenderness, Yes Crepitus, No TTP Pes Anserine and No Illiotibial band tenderness Stability: NML: Anterior Drawer, NML: Posterior Drawer, NML: Valgus 30 (3mm medial gapping) and NML: Varus 30 KNEE: varus deformity, knee high compression stockings to help with swelling. palpable pedal pulses Office Meds Euflexxa Performing Provider: Pradeep Craig DO Administered by: Pradeep Craig DO on 10/02/22 10:17 Dose Route Admin Location Lot Number Expiration Date NDC Manufactu rer 10 mg intra-articular left knee [id number] 07/20/23 [address]-2 [facility] Supplemental Info 09/23/2022 x-ray right hip: Status post total hip arthroplasty with good interfaces and positioning no concern 09/11/2022 x-ray left knee: [id number] medial compartment arthrosis moderate to severe patellofemoral arthrosis 06/05/2022 x-ray right hip: read as :End-stage right hip arthrosis with subchondral changes in the femoral head suggesting AVN. Orthopedic surgery consultation recommended 06/05/2022 x-ray right knee: Moderate to severe medial compartment narrowing moderate patellofemoral arthrosis with moderate spurs 05/29/2022 AP pelvis x-ray: Advanced right hip arthrosis heterotopic ossification lateral to right acetabulum left hip does demonstrate degenerative change to a lesser degree but moderate narrowing superiorly Coding Level of Care Code Off vis,est,level 3 Diagnoses Osteoarthritis of left knee M17.12 Assessment and Plan Assessment and Plan (1) Osteoarthritis of left knee: Status: Acute Orders: Orders Euflexxa Injection Today M17.12 - Unilateral primary osteoarthritis, left knee Plan Second Euflexxa injection given today in the left knee without complication follow-up 1 week for last injection 10/02/22 1024 Date (more content not included)... Normal [facility] Orthopedic Visit Reporton Orthopedic Visit Report [facility] [address] [place] [address] OFFICE VISIT Date of Service: 09/25/22 MR#: [id number] Acct: [id number] Name: KATHY JACKSON NIA Rep #: [id number] : 1965 Provider: Dr. Pradeep zhao DO Age/Sex: 57/F [place] [facility] Status: Signed Intake Vital Signs 08/13/22 09:32 Height 5 ft 3 in Intake Visit Reasons: LEFT KNEE Is patient in pain?: Yes Allergies No Known Allergies Allergy (Verified 09/25/22 09:11) Medications amlodipine 10 mg tablet 10 mg PO DAILY RAYNAUDS 01/27/19 [History Confirmed 09/25/22] cholecalciferol (vitamin D3) 125 mcg (5,000 unit) capsule 125 mcg PO DAILY 06/05/22 [History Confirmed 09/25/22] hydroxychloroquine 200 mg tablet 200 mg PO BID 06/05/22 [History Confirmed 09/25/22] mecobalamin (vitamin B12) 5,000 mcg chewable tablet 5,000 mcg PO DAILY 06/05/22 [History Confirmed 09/25/22] omeprazole magnesium 20 mg tablet,delayed release (Prilosec OTC) 10 mg PO DAILY 06/05/22 [History Confirmed 09/25/22] omega-3 fatty acids 1,000 mg PO DAILY 07/30/22 [History Confirmed 09/25/22] acetaminophen 500 mg tablet 1,000 mg PO Q6H PRN #100 tabs 08/13/22 [Rx Confirmed 09/25/22] PFSH Medical History Arthritis COVID-19 CPAP (continuous positive airway pressure) dependence CREST syndrome DVT (deep venous thrombosis) Gastric reflux History of echocardiogram History of edema History of pain when walking History of steroid therapy Hypersomnia Low iron Non-smoker Post-menopausal Raynaud's disease Shortness of breath on exertion Walker as ambulation aid Wears glasses Surgical History History of esophagogastroduodenoscopy (EGD) Hx of colonoscopy Hx of dilation and curettage s/p vein surgery Family History Mother Hypertension Sister Hypertension Other CAD (coronary artery disease) Social History Smoking Status: Never smoker alcohol intake: never HPI LEFT KNEE Details: Parts of this documentation were recorded by a scribe, this documentation accurately reflects the service provided and the decisions made by me, Dr. Pradeep Craig, 09/25/22 0903. KATHY JACKSON is a 57 year old F here today for her left knee 1st Euflexxa injection. She states that she continues to have left knee pain. She is ambulating with a cane. Ortho Exam General General: Yes no acute distress Neurologic: Yes alert and Yes oriented x3 Psychologic: Yes reasonable and appropriate Left Knee Skin/Wound: Yes CDI, No ecchymosis, No erythema and No swelling Knee ROM: Yes ROM-Extension -20 to 0 (-4) and Yes ROM-Flexion 0-140 (103) Examination: Yes med jt line tenderness, No Lat jt line tenderness, Yes Crepitus, No TTP Pes Anserine and No Illiotibial band tenderness Stability: NML: Anterior Drawer, NML: Posterior Drawer, NML: Valgus 30 (3mm medial gapping) and NML: Varus 30 KNEE: varus deformity, knee high compression stockings to help with swelling. palpable pedal pulses Office Meds Euflexxa Performing Provider: Pradeep Craig DO Administered by: Pradeep Craig DO on 09/25/22 09:17 Dose Route Admin Location Lot Number Expiration Date NDC Manufactu rer 10 mg intra-articular left knee [id number] 07/20/23 [address]-8 [facility] Supplemental Info 09/23/2022 x-ray right hip: Status post total hip arthroplasty with good interfaces and positioning no concern 09/11/2022 x-ray left knee: [id number] medial compartment arthrosis moderate to severe patellofemoral arthrosis 06/05/2022 x-ray right hip: read as :End-stage right hip arthrosis with subchondral changes in the femoral head suggesting AVN. Orthopedic surgery consultation recommended 06/05/2022 x-ray right knee: Moderate to severe medial compartment narrowing moderate patellofemoral arthrosis with moderate spurs 05/29/2022 AP pelvis x-ray: Advanced right hip arthrosis heterotopic ossification lateral to right acetabulum left hip does demonstrate degenerative change to a lesser degree but moderate narrowing superiorly Coding Level of Care Code Off vis,est,level 3 Diagnoses Osteoarthritis of left knee M17.12 Assessment and Plan Assessment and Plan (1) Osteoarthritis of left knee: Status: Acute Orders: Orders Euflexxa Injection Today Plan Follow up in 1 week for 2nd Euflexxa injection or sooner if pain, swelling, numbness or associated symptoms, or concerns develop. All questions answered. Patient in agreement of plan. 09/25/22 0931 Date Pradeep Craig DO Cosigner Signature: Date (more content not included)... Normal [facility] HIP, UNI W/ Pelvis 2-3 Views on 09-23-2022 HIP, UNI W/ Pelvis 2-3 Views [facility] [address] [place] [address] HIP, UNI W/ Pelvis 2-3 Views MR#: [id number] Acct: [id number] Name: KATHY JACKSON Rep #: [id number] : 1965 F 57 From: Derik Johnson MD PCP: Dr. Naun Kaba DO Status: DEP AMB Study: HIP, UNI W/ Pelvis 2-3 Views Date of Exam: 02/07 Exam# [id number] Ordering Dr: Pradeep Craig DO STUDY: X-RAY - PELVIS AND RIGHT HIP REASON FOR EXAM: Female, 57 years old. Postop from hip replacement surgery TECHNIQUE: 3 views of the pelvis and hip. COMPARISON: None. FINDINGS: There is a non-specific bowel gas pattern. Normal visualized soft tissue structures. Normal bilateral iliac wings, sacroiliac joints and visualized sacrum. Normal bilateral superior and inferior pubic rami. Normal pubic symphysis. Normal bilateral ischial tuberosities. Patient is status post right hip joint replacement surgery. Components demonstrate anatomic alignment. No plain film evidence of postoperative complication. Moderate left hip arthrosis. RAD/HIP, UNI W/ Pelvis 2-3 Views IMPRESSION: Replacement right hip joint demonstrates anatomic alignment with no plain film evidence of postoperative complication Moderate left hip arthrosis Electronically Signed: Jose Johnson MD at 16:50 EST , CC: Dr. Pradeep Craig DO; Dr. Naun Kaba DO Suction Plate Roller Hand: Signed Normal [facility] Orthopedic Visit Reporton Orthopedic Visit Report [facility] [address] [place] [address] [address] [place] [address] OFFICE VISIT Date of Service: 09/23/22 MR#: [id number] Acct: [id number] Name: KATHY JACKSON Rep #: [id number] : 1965 Provider: Dr. Pradeep zhao DO Age/Sex: 57/F [place] [facility] Status: Signed Intake Vital Signs 06/05/22 08:53 08/13/22 09:32 Height 5 ft 3 in 5 ft 3 in Intake Visit Reasons: right hip Chief Complaint: right knee Is patient in pain?: No Allergies No Known Allergies Allergy (Verified 09/11/22 09:01) Medications amlodipine 10 mg tablet 10 mg PO DAILY RAYNAUDS 01/27/19 [History Confirmed 09/23/22] cholecalciferol (vitamin D3) 125 mcg (5,000 unit) capsule 125 mcg PO DAILY 06/05/22 [History Confirmed 09/23/22] hydroxychloroquine 200 mg tablet 200 mg PO BID 06/05/22 [History Confirmed 09/23/22] mecobalamin (vitamin B12) 5,000 mcg chewable tablet 5,000 mcg PO DAILY 06/05/22 [History Confirmed 09/23/22] omeprazole magnesium 20 mg tablet,delayed release (Prilosec OTC) 10 mg PO DAILY 06/05/22 [History Confirmed 09/23/22] omega-3 fatty acids 1,000 mg PO DAILY 07/30/22 [History Confirmed 09/23/22] acetaminophen 500 mg tablet 1,000 mg PO Q6H PRN #100 tabs 08/13/22 [Rx Confirmed 09/23/22] PFSH Medical History Arthritis COVID-19 CPAP (continuous positive airway pressure) dependence CREST syndrome DVT (deep venous thrombosis) Gastric reflux History of echocardiogram History of edema History of pain when walking History of steroid therapy Hypersomnia Low iron Non-smoker Post-menopausal Raynaud's disease Shortness of breath on exertion Walker as ambulation aid Wears glasses Surgical History History of esophagogastroduodenoscopy (EGD) Hx of colonoscopy Hx of dilation and curettage s/p vein surgery Family History Mother Hypertension Sister Hypertension Other CAD (coronary artery disease) Social History Smoking Status: Never smoker alcohol intake: never HPI right hip Details: Parts of this documentation were recorded by a scribe, this documentation accurately reflects the service provided and the decisions made by me, Dr. Pradeep Craig, DO 09/23/22 0744. KATHY JACKSON is a 57 year old F here today for 6 week post op from right PENNY. She denies any pains today. She is still ambulating with a cane. She does have some tenderness over the lateral side of her hip which she states is a muscle soreness. Denies any concerns at this time. Ortho Exam General General: Yes no acute distress Neurologic: Yes alert and Yes oriented x3 Psychologic: Yes reasonable and appropriate Right Hip Date of Surgery: 08/13/22 Skin: Yes CDI, Yes healed, No Ecchymosis, No soft tissue swelling and No Erythema Special Tests: No TTP Greater Troch Homans Sign: No HIP: no s/sx of infection Supplemental Info 09/23/2022 x-ray right hip: Status post total hip arthroplasty with good interfaces and positioning no concern 09/11/2022 x-ray left knee: [id number] medial compartment arthrosis moderate to severe patellofemoral arthrosis 06/05/2022 x-ray right hip: read as :End-stage right hip arthrosis with subchondral changes in the femoral head suggesting AVN. Orthopedic surgery consultation recommended 06/05/2022 x-ray right knee: Moderate to severe medial compartment narrowing moderate patellofemoral arthrosis with moderate spurs 05/29/2022 AP pelvis x-ray: Advanced right hip arthrosis heterotopic ossification lateral to right acetabulum left hip does demonstrate degenerative change to a lesser degree but moderate narrowing superiorly Coding Level of Care Code Global Post Op Diagnoses Orthopedic aftercare Z47.89 Assessment and Plan Assessment and Plan (1) Orthopedic aftercare: Status: Acute Orders: Orders HIP, UNI W/ Pelvis 2-3 Views Today G89.18 - Other acute postprocedural pain Plan Patient educated that her xrays show no signs of loosening or infection. She will not need repeat xrays until 1 year post op. She will continue to improve with strengthening. She can preform deep massage to the right hip which will help with the firmness and sensitivity. Reminded that she will need prophylactic ATBs for life prior to any dental work/cleanings. Hold off on dental cleanings until 3 months post op. She will keep the hip precautions in mind for another 6 weeks. Follow up for right knee visco injections or sooner if pain, swelling, numbness or associated symptoms, or concerns develop. All questions answered. Patient in agreement of plan. 09/23/22 0948 Date (more content not included)... Normal [facility] Knee 4 or More Viewson 09-11 Knee 4 or More Views [facility] [address] [place] [address] Knee 4 or More Views MR#: [id number] Acct: [id number] Name: KATHY JACKSON Rep #: [id number] : 1965 F 57 From: Willy Cyr MD PCP: Dr. Naun Kaba, DO Status: DEP AMB Study: Knee 4 or More Views Date of Exam: 09/11/22 Exam# [id number] Ordering Dr: Anastasia Montes STUDY: X-RAY - LEFT KNEE REASON FOR EXAM: Female, 57 years old. pain TECHNIQUE: 4 view(s) of the knee. COMPARISON: None. FINDINGS: Normal visualized distal femur. Normal visualized proximal tibia and fibula. Normal proximal tibiofibular articulation. Severely narrowed medial femorotibial compartment with mild valgus deformity.. Normal lateral femorotibial compartment. Diffusely narrowed patellofemoral articulation. The soft tissue structures are unremarkable. RAD/Knee 4 or More Views IMPRESSION: Moderate to severe osteoarthritic changes. No acute fracture or other significant bony pathology Electronically Signed: Willy Cyr MD at 17:28 EST Reading Location ID and State: [address] [place] [address] , Service support , CC: BROOKE Montes; Dr. Naun Kaba DO Suction Plate Roller Hand: Signed Normal [facility] Orthopedic Visit Reporton Orthopedic Visit Report [facility] [address] [place] [address] [address] [place] [address] OFFICE VISIT Date of Service: 09/11/22 MR#: [id number] Acct: [id number] Name: KATHY JACKSON NIA Rep #: [id number] : 1965 Provider: Dr. Pradeep zhao DO Age/Sex: 57/F [place] [facility] Status: Signed Intake Vital Signs 08/13/22 09:32 Height 5 ft 3 in Intake Visit Reasons: left knee Allergies No Known Allergies Allergy (Verified 09/11/22 09:01) Medications amlodipine 10 mg tablet 10 mg PO DAILY RAYNAUDS 01/27/19 [History Confirmed 09/11/22] cholecalciferol (vitamin D3) 125 mcg (5,000 unit) capsule 125 mcg PO DAILY 06/05/22 [History Confirmed 09/11/22] hydroxychloroquine 200 mg tablet 200 mg PO BID 06/05/22 [History Confirmed 09/11/22] mecobalamin (vitamin B12) 5,000 mcg chewable tablet 5,000 mcg PO DAILY 06/05/22 [History Confirmed 09/11/22] omeprazole magnesium 20 mg tablet,delayed release (Prilosec OTC) 10 mg PO DAILY 06/05/22 [History Confirmed 09/11/22] omega-3 fatty acids 1,000 mg PO DAILY 07/30/22 [History Confirmed 09/11/22] acetaminophen 500 mg tablet 1,000 mg PO Q6H PRN #100 tabs 08/13/22 [Rx Confirmed 09/11/22] [facility] Medical History (Updated 08/26/22 @ 09:33 by Maggy Vazquez) Arthritis COVID-19 CPAP (continuous positive airway pressure) dependence CREST syndrome DVT (deep venous thrombosis) Gastric reflux History of echocardiogram History of edema History of pain when walking History of steroid therapy Hypersomnia Low iron Non-smoker Post-menopausal Raynaud's disease Shortness of breath on exertion Walker as ambulation aid Wears glasses Surgical History (Updated 07/30/22 @ 15:21 by Gracia Hargrove) History of esophagogastroduodenoscopy (EGD) Hx of colonoscopy Hx of dilation and curettage s/p vein surgery Family History Mother Hypertension Sister Hypertension Other CAD (coronary artery disease) Social History Smoking Status: Never smoker alcohol intake: never HPI left knee Details: Parts of this documentation were recorded by a scribe, this documentation accurately reflects the service provided and the decisions made by me, Dr. Pradeep Craig, DO 09/11/22 0921. KATHY JACKSON is a 57 year old F here today for left knee pain. Patient notes that she has had left knee pain for awhile but it has worsened since her total hip arthroplasty. Patient states that she has had pain since she did physical therapy, while doing hamstring strengthening, and the machine flew up hurting her knee in June. Patient has popping and clicking. She complains of pain over her posterior and medial knee. She states that she has instability. Patient notes that she had a cortisone injection in April 2021 which was helpful for about a month by Dr Mazariegos. She did physical therapy for her knees and hips. She denies any bracing. She denies any knee xrays. Ortho Exam General General: Yes no acute distress Neurologic: Yes alert and Yes oriented x3 Psychologic: Yes reasonable and appropriate Right Knee Patella Translation: 1 Left Knee Skin/Wound: Yes CDI, No ecchymosis, No erythema and No swelling Knee ROM: Yes ROM-Extension -20 to 0 (-4) and Yes ROM-Flexion 0-140 (103) Examination: Yes med jt line tenderness, No Lat jt line tenderness, Yes Crepitus, No TTP Pes Anserine and No Illiotibial band tenderness Stability: NML: Anterior Drawer, NML: Posterior Drawer, NML: Valgus 30 (3mm medial gapping) and NML: Varus 30 Patella Translation: 1 KNEE: varus deformity, knee high compression stockings to help with swelling. palpable pedal pulses Office Procedures Ortho Injections Injections Yes Knee Left Details: Obtained consent for injection. Under sterile conditions, injected the patient's left knee with 1.5cc bupivacaine, 1.5cc lidocaine and 1cc depomedrol. The patient tolerated the injection well without any noted complication. Patient should call our office if redness develops, pain worsens or if they have any concerns. Office Meds Depo-Medrol Performing Provider: Pradeep Craig DO Administered by: Pradeep Craig DO on 09/11/22 09:35 Dose Route Admin Location Lot Number Expiration Date NDC Manufactu rer 40 mg intra-articular left knee [id number] 11/16/24 0726-9331-23 [employer] Supplemental Info 09/11/2022 x-ray left knee: [id number] medial compartment arthrosis moderate to severe patellofemoral arthrosis 06/05/2022 x-ray right hip: read as :End-stage right hip arthrosis with subchondral changes in the femoral head suggesting AVN. Orthopedic surgery consultation recommended 06/05/2022 x-ray right knee: Moderate to severe medial compartment narrowing moderate patellofemoral arthrosis with (more content not included)... Normal [facility] Re-Evaluation - PT (1)on Re-Evaluation - PT (1) [facility] Physical Therapy [facility] [address] [place] [address]. [address] [place] [address] / REEVALUATION / MEDICARE RECERTIFICATION PHYSICAL THERAPY MR#: [id number] Acct: [id number] Name: KATHY JACKSON NIA Rep #: [id number] : 1965 57 From: Soco Jarrell DPT Referring Dr.: Dr. Pradeep Craig DO Status:REG RCR Insurance: [facility] PACKAGE PLAN [facility] Dr. Pradeep Borruso, DO, It has been my pleasure to treat KATHY JACKSON over the last 10 visits for Right THR 08/13/22. Please see the progress note below for an update on the physical therapy plan of care! Subjective: Patient reports that she is a lot better- she still knows that she needs to have her knees replaced and they hold her back more than her hip. She is doing exercises at home. Working with PCP to find a attic blower. Would like to continue for HEP 1x a week. She reports no pain in the hip and the groin and radiating pain is also completely gone Objective/Function: Posture: FH, RS- can correct but does not maintain. Gait: Single Point Cane- slightly antalgic with decreased stance on the right LE but reports pain in her knees. Stairs: asc/desc 8 recip with 2 HR- reports limited by her knees HR/TR: able with UE A. Balance: 2-3 seconds ROM: Hip: WFL without pain Strength: Core: fair, Hip: 15 Flxn: 40 lbs Knee: 4-/5 in available range, Ankle: 5/5 bilateral. Flex: HS: moderate, Gastroc: moderate. Plan Plan: 09/11/22: 1x a week for 4 weeks- focus on HEP with print outs for compliance at home. IE: Right THR 08/13/22. Focus on LE and core strength/stabilization with functional mobility. Educated on importance of movement and indep with mobility- reviewed current HEP Balance/Gait/Functional tests - Balance/Special Test Scores Lower Extremity Functional Score: 34 TUG Test Time Seconds: 35 Tug Test: >30sec.=impaired mobility WOMAC Total Score: 38 WOMAC Percentage: 60.4200 Goals Goal 1:: Patient will be I with HEP and progression Goal Time Frame: 4-6 Weeks Goal Progress: Progressing Goal 2:: Patient will ambulate >300 feet with LRD and normalized gait pattern Goal Time Frame: 4-6 Weeks Goal Progress: Progressing Goal 3:: Patient will asc/desc 8' stairs recip with 1 HR Goal Time Frame: 4-6 Weeks Goal Progress: Progressing Goal 4:: Patient will perform a TUG in under 10 sec with LRD Goal Time Frame: 4-6 Weeks Goal Progress: Progressing Goal 5:: Patient will report 80% improvement Goal Time Frame: 4-6 Weeks Goal Progress: Progressing Anticipated Interventions Patient/Client Instruction: Educate patient on: Benefits of Fitness Program Therapeutic Exercise to Include: Strength training, Endurance training, Balance training, Coordination, Agility training, Body mechanics, Postural training, Flexibilty training, Neuromotor development, Dynamic Lumbar Stabilization, Scapular Strength/Stabilization For the Purpose of:: To improve muscle performance and motor function Cryotherapy (ice pack, ice massage): Yes Thermo therapy (hot pack): Yes Please do not hesitate to contact me at [phone] by phone or if you have questions or concerns regarding this new plan of care! Sincerely, Soco Jarrell, DPT 09/11/22 1044 CC: Dr. Pradeep Craig DO; Dr. Naun Kaba DO ELR Signed For Medicare only, by signing this I certify the plan of care. Physicians Signature Date Normal [facility] Orthopedic Visit Reporton Orthopedic Visit Report [facility] [address] [place] [address] OFFICE VISIT Date of Service: 08/26/22 MR#: [id number] Acct: [id number] Name: KATHY JACKSON NIA Rep #: [id number] : 1965 Provider: Dr. Pradeep zhao DO Age/Sex: 57/F Location[place] [facility] Status: Signed Intake Vital Signs 06/05/22 08:53 08/13/22 09:32 Height 5 ft 3 in 5 ft 3 in Intake Visit Reasons: right hip Chief Complaint: right knee Allergies No Known Allergies Allergy (Verified 08/13/22 09:30) Medications amlodipine 10 mg tablet 10 mg PO DAILY RAYNAUDS 01/27/19 [History Confirmed 08/26/22] cholecalciferol (vitamin D3) 125 mcg (5,000 unit) capsule 125 mcg PO DAILY 06/05/22 [History Confirmed 08/26/22] hydroxychloroquine 200 mg tablet 200 mg PO BID 06/05/22 [History Confirmed 08/26/22] mecobalamin (vitamin B12) 5,000 mcg chewable tablet 5,000 mcg PO DAILY 06/05/22 [History Confirmed 08/26/22] omeprazole magnesium 20 mg tablet,delayed release (Prilosec OTC) 10 mg PO DAILY 06/05/22 [History Confirmed 08/26/22] omega-3 fatty acids 1,000 mg PO DAILY 07/30/22 [History Confirmed 08/26/22] acetaminophen 500 mg tablet 1,000 mg PO Q6H PRN #100 tabs 08/13/22 [Rx Confirmed 08/26/22] apixaban 2.5 mg tablet (Eliquis) 2.5 mg PO BID #42 tabs 08/13/22 [Rx Confirmed 08/26/22] oxycodone 5 mg tablet 5 - 10 mg PO Q4H PRN pain 7 days #60 tabs 08/13/22 [Rx Confirmed 08/26/22] PFSH Medical History (Updated 08/26/22 @ 09:33 by Maggy Vazquez) Arthritis COVID-19 CPAP (continuous positive airway pressure) dependence CREST syndrome DVT (deep venous thrombosis) Gastric reflux History of echocardiogram History of edema History of pain when walking History of steroid therapy Hypersomnia Low iron Non-smoker Post-menopausal Raynaud's disease Shortness of breath on exertion Walker as ambulation aid Wears glasses Surgical History (Updated 07/30/22 @ 15:21 by Gracia Hargrove) History of esophagogastroduodenoscopy (EGD) Hx of colonoscopy Hx of dilation and curettage s/p vein surgery Family History Mother Hypertension Sister Hypertension Other CAD (coronary artery disease) Social History Smoking Status: Never smoker alcohol intake: never HPI right hip Details: Parts of this documentation were recorded by a scribe, this documentation accurately reflects the service provided and the decisions made by me, Dr. Pradeep Craig, DO 08/26/22 0914. KATHY JACKSON is a 57 year old F here today for 2 week post op from CT-guided Makoplasty assisted RIGHT total hip arthroplasty. She states that her pain has been under control with just Tylenol. She states that the Oxycodone caused her to have nausea and vomiting. She is in therapy and has been getting around at home with a rollator. She also reports a lot of itching in the left hip. Slovan removed without any concerns. Ortho Exam General General: Yes no acute distress Neurologic: Yes alert and Yes oriented x3 Psychologic: Yes reasonable and appropriate Right Hip Date of Surgery: 08/13/22 Skin: Yes healing, Yes suture/tuned removed, Yes Ecchymosis and No Erythema Homans Sign: No HIP: incision is well approximated. no s/sx of infection, no drainage there is some mild induration and swelling neurovascular intact bilateral lower extremities Supplemental Info 06/05/2022 x-ray right hip: read as :End-stage right hip arthrosis with subchondral changes in the femoral head suggesting AVN. Orthopedic surgery consultation recommended 06/05/2022 x-ray right knee: Moderate to severe medial compartment narrowing moderate patellofemoral arthrosis with moderate spurs 05/29/2022 AP pelvis x-ray: Advanced right hip arthrosis heterotopic ossification lateral to right acetabulum left hip does demonstrate degenerative change to a lesser degree but moderate narrowing superiorly Coding Level of Care Code Global Post Op Diagnoses Orthopedic aftercare Z47.89 Assessment and Plan Assessment and Plan (1) Orthopedic aftercare: Status: Acute Plan Educated that she will continue with PT. She can remove the GAEL hose if she doesnt develop any increase in swelling. She will continue with the strict hip precautions. Use caution to pick things up off the floor. She will cleanse the incision with antibacterial soap and water daily. Follow up in 4 weeks or sooner if pain, swelling, numbness or associated symptoms, or concerns develop. All questions answered. Patient in agreement of plan. 08/26/22 1008 Date Pradeep Hendrickson Signature: Date (if applicable) CC: Normal [facility] Inital Evaluation (1) - PTon 08-15-2022 Inital Evaluation (1) - PT [facility] [address] [place] [address] / REHABILITATION SERVICES INITIAL EVALUATION MR#: [id number] Acct: [id number] Name: KATHY JACKSON Rep #: [id number] : 1965 56 From: Soco Jarrell DPT Referring Dr.: Dr. Pradeep Craig DO Status: R EG RCR Insurance: [employer] SELF [employer]Y INSURANCE Patient's Visit Information KATHY JACKSON is a 56 year old F referred to Physical Therapy by Dr. Pradeep Craig DO with a diagnosis of Right THR 08/13/22. Date of Evaluation: 08/15/22 Physical Therapist: Sooc Jarrell DPT - Visit Plan Frequency: 2x /Week Duration: 4 Weeks Plan: Right THR 08/13/22. Focus on LE and core strength/stabilization with functional mobility. Educated on importance of movement and indep with mobility- reviewed current HEP - Subjective Right THR 08/13/[address] Maurice - she went home directly after surgery. She has stairs to enter that have a hand rail but then she is all on one floor. Fully I prior to surgery. Worst: 5/10- Agg: movement Best: 0/10 Eases: sitting down- goes away in a min after she sits down. She reports she has pain that starts in the hip that radiates to just below the knee. Describes the pain as dull muscle pains. No N/T in the toes. She was doing therapy before so she has been doing those exercises. Sleep: in the recliner-she feels that she is really itchy so she did not sleep well. She thinks the itchiness is from the anesesia. Goals: get back to all of her normal stuff. She was pretty active until about 3 years ago and then things went downhill. PMHx/Meds: no changes since she was at the hospital for surgery 08/13/22 - Objective Posture: FH, RS- can correct but does not maintain. Gait: Rollator- slightly antalgic with decreased stance on the right LE with hip drop. Stairs: asc/desc 8 recip with 1 HR and single point cane SBA from per pt report HR/TR: able with UE A. Balance: weight shift ROM: Knee: 30 degrees from extn: Hip: 30 degrees of flexion, Extn: neutral, Abd: 10 degrees- very guarded Strength: Core: fair, Hip: Flexion: unable to SLR without max A from PT Flexn: 5 lbs Knee: 4-/5 in available range, Ankle: 5/5 bilateral. Flex: HS: moderate, Gastroc: moderate. - Balance/Special Test Scores Lower Extremity Functional Score: 0 TUG Test Time Seconds: 35 WOMAC Total Score: 96 WOMAC Percentatge: 0 - Goals Goal 1:: Patient will be I with HEP and progression Goal Time Frame: 4-6 Weeks Goal 2:: Patient will ambulate >300 feet with LRD and normalized gait pattern Goal Time Frame: 4-6 Weeks Goal 3:: Patient will asc/desc 8' stairs recip with 1 HR Goal Time Frame: 4-6 Weeks Goal 4:: Patient will perform a TUG in under 10 sec with LRD Goal Time Frame: 4-6 Weeks Goal 5:: Patient will report 80% improvement Goal Time Frame: 4-6 Weeks - Rehabilitation Potential Physical Therapy Diagnosis: Patient presents with hypomobility s/p Right THR 08/13/22: she has decreased LE and core strength/stabilization, flex, proprioception, flex and muscular endurance leading to abnormal gait and decreased ability to perform ADLs. Rehabilitation Potential: Good - Anticipated Interventions Patient/Client Instruction: Educate patient on: Benefits of Fitness Program Therapeutic Exercise to Include: Strength training, Endurance training, Balance training, Coordination, Agility training, Body mechanics, Postural training, Flexibilty training, Neuromotor development, Dynamic Lumbar Stabilization, Scapular Strength/Stabilization For the Purpose of:: To improve muscle performance and motor function Cryotherapy (ice pack, ice massage): Yes Thermo therapy (hot pack): Yes Thank you for the opportunity to evaluate your patient. For Medicare and Medicare HMO plans, please review the plan of care and approve it. It will need to be FAXED BACK to us at [phone] for Medicare purposes. For Medicare only, by signing this I certify the plan of care. Please let me know if there are questions or concerns regarding this plan of care. Physician Signature: ___Date: 08/15/22 1044 CC: Dr. Pradeep Cragi DO; Dr. Naun Kaba DO ELR Signed Normal [facility] Bedside Glucoseon 08-13-2022 FINGERSTICK GLU 85 mg/dL Normal 74-106 [facility] Comment on above: Result Comment: TIGRE ST OF PATIENT CARE PER NURSING PROTOCOL Performed By: #### L 501.080 #### [facility] [address] [place], [place], [address] Decalcification bone/plaqueo n 08-13-2022 Decalcification bone/plaque -------- Patient Age/Sex Location Account Attending Physician -------- KATHY JACKSON 56/F [facility] [id number] Dr. Pradeep Craig DO -------- Specimen: [id number] Received: 08/13/22 Status: ERICKSON Howard Num: [id number] Spec Type: TOTAL HIP Subm Dr: Dr. Pradeep Craig, DO HEADER OPERATION: ERAS, total hip replacement robotic arm assist PRE-OP DIAGNOSIS: Osteoarthritis of right hip TISSUE SUBMITTED: Bone and soft tissue ??? right hip -------- MICROSCOPIC DIAGNOSIS Right hip bone and soft tissue, total hip replacement/resection: Femoral head with degenerative osteoarthritic changes. SJ:gaby 08/16/2022 MICROSCOPIC DESCRIPTION Slides are reviewed. GROSS DESCRIPTION Received is one container labeled with the patient's name and designated bone and soft tissue hip, right. The specimen consists of a fofana femoral head with portion of femoral neck. The femoral head measures 4 x 4.5 x 4 cm and the femoral neck measures up to 0.8 cm in length. The articular surface displays prominent osteophyte formation, eburnation and bone erosion. Also present in the specimen container are multiple irregular fragments of bone reamings measuring in aggregate 6.5 x 6.5 x 3 cm. Tube Drawing Supervisor sections are submitted in two cassettes after decalcification as follows: 1 ??? bone reamings, 2 ??? femoral head. / VALERIE:gaby 08/13/2022 TC:5 CPT: 20175, 14159 -------- Patient Age/Sex Location Account Attending Physician -------- KATHY JACKSON 56/F [facility] [id number] Dr. Pradeep Craig, DO -------- Signed (signature on file) Dr. Robin Bermudez MD 08/16/22 1254 -------- Normal [facility] Comment on above: Performed By: #### P DEC ####[facility] [id number] [place], [address] Discharge Instructionon 07-19 Discharge Instruction [facility] Medical Records Department [address] [place] [address] Instructions for Home/Discharge Instructions 08/13/22 1318 MR#: [id number] Acct: [id number] Name: KATHY JACKSON Rep #: [id number] : 1965 56 From: Pradeep Craig DO PCP: Dr. Naun Kaba DO Status:REG [facility] Discharge Instructions Activity Weight Bearing Status: Weight bearing as tolerated Dressing / Incision Call your doctor if you observe: Shortness of breath and Chest pain Additional Dressing/Incision Instructions:: Do not shower 72hrs. Begin daily showering warm water antibacterial soap postop day #3( 72hrs Post-operatively) and then daily. Leave the dressing on for 72 hours postoperatively then may remove prior to first shower and change dressing daily after this until no drainage for 2 consecutive days then may leave open to air. Follow hip precautions that were reviewed in hospital. Wear compression stockings, may remove at night. Start physical therapy as directed in hospital. Follow prescriptions instructions do not take any other pain medication or differ dosing without consulting your physician. Do not take oral NSAIDs until blood thinner has been completed , then may begin the day after completion if needed . Call Dr. Craig's office with any concerns. Follow Up Care Please Follow Up With: Pradeep Craig DO When: 2 weeks Test Results: Test results from this visit will be discussed in further detail at your follow-up appointment, if applicable. Discharge Plan Admission Primary Reason for Your Visit: Right total hip arthroplasty Attending Provider: Pradeep Craig Primary Care Provider: Naun Kaba Discharge Orders/Prescriptions Prescriptions: New acetaminophen [acetaminophen] 500 mg tablet 1,000 mg PO Q6H PRN Qty: 100 0RF cephalexin [cephalexin] 500 mg capsule 1,000 mg PO Q8 Qty: 4 0RF Rx Instructions: take 2 tabs at 9:00 pm and 2 tabs after 5 am when you wake up oxycodone 5 mg tablet 5 - 10 mg PO Q4H PRN (Reason: pain) 7 Days Qty: 60 0RF Eliquis 2.5 mg tablet 2.5 mg PO BID Qty: 42 0RF Rx Instructions: Begin morning after surgery Continued amlodipine 10 mg tablet 10 mg PO DAILY hydroxychloroquine 200 mg tablet 200 mg PO BID Label Comments: TAKE 1 TABLET BY MOUTH ONCE DAILY cholecalciferol (vitamin D3) 125 mcg (5,000 unit) capsule 125 mcg PO DAILY omeprazole magnesium [Prilosec OTC] 20 mg tablet,delayed release (DR/EC) 10 mg PO DAILY mecobalamin (vitamin B12) 5,000 mcg tablet,chewable 5,000 mcg PO DAILY omega-3 fatty acids Capsule 1,000 mg PO DAILY Referrals / Follow Up: Naun Kaba DO [Primary Care Provider] - Disposition Disposition (needs filled in before D/C Order can be placed): Home, Self Care 08/13/22 1323 Pradeep Craig DO CC: Dr. Naun Kaba DO Signed Normal [facility] Glucose Glucometer (BldC) [M ass/Vol]Ordered By: Dr. Craig on 08-13-2022 Glucose [Mass/Vol] 85 mg/dL 74-[address] [facility] Comment on above: MANAGEMENT OF PATIEN T CARE PER NURSING PROTOCOL Hip Min 2 Views (Portable)on 08-13-2022 Hip Min 2 Views (Portable) [facility] Imaging Services [address] [place] [address] Hip Min 2 Views (Portable) MR#: [id number] Acct: [id number] Name: KATHY JACKSON NIA Rep #: [id number] : 1965 F 56 From: Donald Hu MD PCP: Dr. Naun Kaba DO Status: [facility] Study: Hip Min 2 Views (Portable) Date of Exam: 08/13 Exam# [id number] Ordering Dr: Pradeep Craig DO STUDY: X-RAY - PELVIS AND RIGHT HIP REASON FOR EXAM: Female, 56 years old. Postoperative evaluation after right total hip arthroplasty. TECHNIQUE: 2 views of the pelvis and hip. COMPARISON: June 05, 2022. FINDINGS: Knee right hip arthroplasty in anatomic alignment with expected post-operative findings. There are no complications noted. RAD/Hip Min 2 Views (Portable) IMPRESSION: Placement of new total hip arthroplasty in anatomic alignment without complications. Electronically Signed: Donald Hu, at 13:57 EST , CC: Dr. Pradeep Craig DO; Dr. Naun Kaba DO Suction Plate Roller Hand: Signed Normal [facility] Operative Reporton 2 Operative Report [facility] Medical Records Department [address] [place] [address] Operative Report 08/13/22 1316 MR#: [id number] Acct: [id number] Name: KATHY JACKSON Rep #: [id number] : 1965 56 From: Pradeep Craig DO PCP: Dr. Naun Kaba DO Status:REG [facility] Location: [address] Operative Report Date of Procedure: 08/13/22 Preoperative diagnosis: Right hip DJD Postoperative diagnosis: Same Procedure: CT-guided Makoplasty assisted left total hip arthroplasty Implants: Stas Accolade II stem size 2, 127 degree neck angle -4 neck length 48 mm Trident II acetabular shell with 25 mm cancellous screw 32 mm ceramic head, 10 degree Trident X3 polyethylene insert. Anesthesia: Spinal EBL: 175 cc Complications: None Condition: Stable to PACU Indication for procedure: This is a 56-year-old female who has had long-standing arthrosis of the hip who has failed conservative treatment and wished to undergo total hip arthroplasty. We did discuss operative versus nonoperative intervention including risks of bleeding, infection , nerve artery tissue damage, need for further surgery, fracture, leg length discrepancy dislocation blood clot and need for postoperative physical therapy and postoperative expectations. An informed consent was signed. Procedure: Patient was met in the preoperative holding area once again the operative extremity was identified by both patient and physician and was marked. Patient was met by anesthesia . Anesthesia was started. patient was then positioned in the lateral decubitus position on a well-padded pegboard with an axillary roll. All bony prominences were checked and padded. The patient was prepped and draped in the usual sterile fashion. A timeout was called to ensure the proper patient procedure and extremity were being contemplated. Anatomic landmarks were palpated and marked for a standard posterior lateral approach. Prior to this the ASIS was palpated and 3 fingerbreadths proximal to this 3 pins were placed at a 45 degree angle into the iliac crest with good purchase, stab incisions were made with a 15 blade into the skin prior to placement. The Makoplasty array was then secured. A 10 blade scalpel was used to make a posterior incision through the skin and subcutaneous tissue. retractors were used and electrocautery was used to maintain meticulous hemostasis and dissect full-thickness flaps until the gluteal fascia was reached. The gluteal fascia was incised in line with the gluteal fibers. The bursal tissue was then freed from the underside and a Charnley retractor was placed. The femoral trochanteric checkpoint was placed and leg length was assessed using the trochanteric checkpoint and an EKG lead that was placed on the knee prior to prepping the leg .the fat pad was then elevated off of the external rotators with electrocautery and the external rotators were dissected off of the greater trochanter including the piriformis and were tagged with #1 Ethibond for later repair. The joint capsule opened with posterior trapdoor technique. The hip was surgically dislocated. The measurement on the preoperative CT from the top of the lesser trochanter to the femoral neck cut was marked Hohmann was placed around the lesser trochanter. A neck cutting guide was used to naun the neck with a Bovie and an oscillating saw was used complete the femoral neck cut. The femoral head was then removed and sized. We then turned our attention to the acetabulum. A Bovie was used to make a perforation in the anterior joint capsule and a Bueno retractor was placed this was repeated in the 6 o'clock position and a wide ban was placed there. With a long handled knife the labral and pulvinar tissue were removed. We then registered the acetabulum with the pointing array and confirmed our landmarks. Once the socket was thoroughly prepared and labral tissue and pulvinar was removed we single reamed with the robotic arm. We then used the robotic arm to position the acetabular implant and impacted it into place under robotic guidance. We then proceeded to place a posterior superior screw by drilling first measuring and inserting the screw. We then inserted a trial liner. And turned our attention back to the femur at this point a femoral elevator was used. As well as a pointed wide Hohmann around the lesser trochanter and a Hohmann to help retract the gluteus medius. A box chisel was used to remove excess lateral neck followed by a canal finder and a lateralizing reamer. This was followed by sequential broaches. Attention was made of the version within the canal based on preoperative templating. Once the final broach was seated we then trialed reduced the hip it was determined that a 127 degree neck angle with a -4 neck length was the appropriate size. We then checked stability with shuck testing as well as flexion and internal rot (more content not included)... Normal [facility] Fructosamineon 08-04-2022 FRUCTOSAMINE 230 umol/L Normal 0-285 [facility] Comment on above: Result Comment: Publ ished reference interval for apparently healthy subjects between age 20 and 60 is 205 - 285 umol/L and in a poorly controlled diabetic population is 228 - 563 umol/L with a mean of 396 umol/L. Performed at: [facility] [id number] Tax Economist: Andrea Taveras PhD, Phone: [phone] Performed By: #### L 300.4310, L100.0100, L300.3900, L3400.0100, M100.651, L501.9985, BTSPAT ####[facility] [address] [place], [place], [id number] MRSA/SAID NASAL SCREENon MRSA+SAID SCRN Reason for Exam: PRE -OP PRE-OP MRSA MRSA Negative S. AUREUS S. aureus Negative Normal [facility] Comment on above: Performed By: #### L 300.4310, L100.0100, L300.3900, L3400.0100, M100.651, L501.9985, BTSPAT ####[facility] [address] [place], [place], [address] No Panel InformationOrdered By: Dr. Craig on 08-02-2022 Nasal Screen MRSA/MSSA [facility] 12 Lead EKGon 08-01-[address] [facility] [address] [place] [address] 12 Lead EKG 08/01/22 0931 MR#: [id number] Acct: [id number] Name: KATHY JACKSON NIA Rep #: [id number] : 1965 56 From: Joaquim Cabrera MD Attending Dr: Dr. Pradeep Craig DO Status: MT E SDC Ordering Dr: Augusto Montanez MD Date: 08/01/22 Location: [facility] Sex: F C Admitted: Test Reason : PREOP Blood Pressure : / mmHG Vent. Rate : 078 BPM Atrial Rate : 078 BPM P-R Int : 164 ms QRS Dur : 082 ms QT Int : 410 ms P-R-T Axes : 070 050 035 degrees QTc Int : 467 ms Normal sinus rhythm Normal ECG Confirmed by HODA CLIFFORD, SARAH ([id number]), editor city LUISITO OLSON ([id number]) on 08/02/2022 10:36:40 AM Referred By: [place]IA Confirmed By:CRISELDA CABRERA MD 08/02/22 1036 Date Joaquim Cabrera MD CC: Dr. Augusto Montanez MD; Dr. Pradeep Craig DO; Dr. Naun Kaba DO Signed Normal [facility] Absolute lymphocyte countOrd ered By: Dr. Craig on 08-01-2022 Lymphocytes Auto (Unsp spec) [#/Vol] 0.99 10*3/uL 0.83-4.51 [facility] Basic Metabolic Profile (BMP )on 08-01-2022 BUN/CRE 19.7 RATIO Normal 10-20 [facility] Comment on above: Performed By: #### L 501.5200, L500.2500 #### [facility] [address] [place], [address] CA,Total 9.0 mg/dL Normal 8.5-10.1 [facility] Comment on above: Performed By: #### L 501.5200, L500.2500 #### [facility] [address] [place], [address] Chloride [Moles/Vol] 106 mmol/L Normal 98-107 [facility] Comment on above: Performed By: #### L 501.5200, L500.2500 #### [facility] [address] [place], [address] CO2 [Moles/Vol] 29.0 mmol/L Normal 21.0-32.0 [facility] Comment on above: Performed By: #### L 501.5200, L500.2500 #### [facility] [address] [place], [address] Creatinine [Mass/Vol] 0.76 mg/dL Normal 0.55-1.02 [facility] Comment on above: Result Comment: The validity of the calculated GFR GFRAA in patients over 70 years has not been determined. Clinical correlation is essential. Performed By: #### L 501.5200, L500.2500 #### [facility] [address] [place], [address] EST GFR - AA 101 mL/min Normal >60 [facility] Comment on above: Result Comment: Afri can Algerian GFR Calc Performed By: #### L 501.5200, L500.2500 #### [facility] [address] [place], [address] GAP 5 Normal 5-15 [facility] Comment on above: Performed By: #### L 501.5200, L500.2500 #### [facility] [address] [place], [address] GFR/1.73 sq M.predicted among non-blacks MDRD (S/P/Bld) [Vol rate/Area] 83 mL/min/{1.73_m2} Normal >60 [facility] Comment on above: Result Comment: Non- GFR Calc Performed By: #### L 501.5200, L500.2500 #### [facility] [address] [place], [address] Glucose [Mass/Vol] 80 mg/dL Normal 74-[address] [facility] Comment on above: Performed By: #### L 501.5200, L500.2500 #### [facility] [address] [place], [address] Potassium [Moles/Vol] 3.8 mmol/L Normal 3.5-5.1 [facility] Comment on above: Performed By: #### L 501.5200, L500.2500 #### [facility] [address] [place], [address] Sodium [Moles/Vol] 140 mmol/L Normal 136-[address] [facility] Comment on above: Performed By: #### L 501.5200, L500.2500 #### [facility] [address] [place], [address] Urea nitrogen [Mass/Vol] 15 mg/dL Normal 7-18 [facility] Comment on above: Performed By: #### L 501.5200, L500.2500 #### [facility] [address] [place], [address] Basophil percentageOrdered B y: Dr. Craig on 08-01-2022 Basophils/100 WBC (Bld) 0.8 % 0-1 [facility] Eosinophils/100 WBC (Bld) 2.3 % 0-5 [facility] Neutrophils (Bld) [#/Vol] 3.5 10*3/uL 2.0-7.7 [facility] Neutrophils/100 WBC (Bld) 67.2 % 47-70 [facility] WBC (Bld) [#/Vol] 5.2 10*3/uL 4.4-11.[address] [facility] Basophil percentageOrdered B y: Dr. Montanez on 08-01-2022 Chloride [Moles/Vol] 106 mmol/L 98-107 [facility] Glucose [Mass/Vol] 80 mg/dL 74-[address] [facility] Potassium [Moles/Vol] 3.8 mmol/L 3.5-5.1 [facility] Sodium [Moles/Vol] 140 mmol/L 136-[address] [facility] Blood erythrocytes count (nu mber/volume)Ordered By: Dr. Craig on 08-01-2022 RBC (Bld) [#/Vol] 4.68 10*6/uL 4.2-5.4 [facility] Blood hemoglobin measurement (mass/volume)Ordered By: Dr. Craig on 08-01-2022 Hemoglobin (Bld) [Mass/Vol] 13.5 g/dL 12.0-15.0 [facility] Blood lymphocytes/100 leukoc ytesOrdered By: Dr. Craig on 08-01-2022 Lymphocytes/100 WBC (Bld) 19.2 % 19-41 [facility] Blood monocytes/100 leukocyt esOrdered By: Dr. Craig on 08-01-2022 Monocytes/100 WBC (Bld) 10.1 % 0-10 [facility] Blood platelet mean volumeOr dered By: Dr. Craig on 08-01-2022 Platelet mean volume (Bld) [Entitic vol] 8.8 fL 6.2-12.0 [facility] CBC W/Diff, Automatedon 07-18 Absolute Lymph 0.99 X10 3/uL Normal 0.83-4.51 [facility] Comment on above: Performed By: #### L 300.4310, L100.0100, L300.3900, L3400.0100, M100.651, L501.9985, BTSPAT ####[facility] [address] [place], [address] Absolute Neut 3.5 X10 3/uL Normal 2.0-7.7 [facility] Comment on above: Performed By: #### L 300.4310, L100.0100, L300.3900, L3400.0100, M100.651, L501.9985, BTSPAT ####[facility] [address] [place], [address] Basophils/100 WBC (Bld) 0.8 % Normal 0-1 [facility] Comment on above: Performed By: #### L 300.4310, L100.0100, L300.3900, L3400.0100, M100.651, L501.9985, BTSPAT ####[facility] [address] [place], [address] Eosinophils/100 WBC (Bld) 2.3 % Normal 0-5 [facility] Comment on above: Performed By: #### L 300.4310, L100.0100, L300.3900, L3400.0100, M100.651, L501.9985, BTSPAT ####[facility] [address] [place], [address] Erythrocyte distribution width (RBC) [Ratio] 13.6 % Normal 11.6-14.6 [facility] Comment on above: Performed By: #### L 300.4310, L100.0100, L300.3900, L3400.0100, M100.651, L501.9985, BTSPAT ####[facility] [address] [place], [address] Hematocrit (Bld) [Volume fraction] 41.8 % Normal 37-47 [facility] Comment on above: Performed By: #### L 300.4310, L100.0100, L300.3900, L3400.0100, M100.651, L501.9985, BTSPAT ####[facility] [address] [place], [address] Hemoglobin (Bld) [Mass/Vol] 13.5 g/dL Normal 12.0-15.0 [facility] Comment on above: Performed By: #### L 300.4310, L100.0100, L300.3900, L3400.0100, M100.651, L501.9985, BTSPAT ####[facility] [address] [place], [address] IG% 0.400 Normal 0.0-0.9 [facility] Comment on above: Result Comment: IG% - Immature Granulocytes (promyelocytes, myelocytes and metamyelocytes) > 1% indicates that a LEFT SHIFT is Present. Performed By: #### L 300.4310, L100.0100, L300.3900, L3400.0100, M100.651, L501.9985, BTSPAT ####[facility] [address] [place], [address] Lymphocytes/100 WBC (Bld) 19.2 % Normal 19-41 [facility] Comment on above: Performed By: #### L 300.4310, L100.0100, L300.3900, L3400.0100, M100.651, L501.9985, BTSPAT ####[facility] [address] [place], [address] MCH (RBC) [Entitic mass] 28.8 pg Normal 27.0-32.0 [facility] Comment on above: Performed By: #### L 300.4310, L100.0100, L300.3900, L3400.0100, M100.651, L501.9985, BTSPAT ####[facility] [address] [place], [address] MCHC (RBC) [Mass/Vol] 32.3 g/dL Normal 32-36 [facility] Comment on above: Performed By: #### L 300.4310, L100.0100, L300.3900, L3400.0100, M100.651, L501.9985, BTSPAT ####[facility] [address] [place], [address] MCV (RBC) [Entitic vol] 89.3 fL Normal 81-99 [facility] Comment on above: Performed By: #### L 300.4310, L100.0100, L300.3900, L3400.0100, M100.651, L501.9985, BTSPAT ####[facility] [address] [place], [address] Monocytes/100 WBC (Bld) 10.1 % High 0-10 [facility] Comment on above: Performed By: #### L 300.4310, L100.0100, L300.3900, L3400.0100, M100.651, L501.9985, BTSPAT ####[facility] [address] [place], [address] Neutrophils/100 WBC (Bld) 67.2 % Normal 47-70 [facility] Comment on above: Performed By: #### L 300.4310, L100.0100, L300.3900, L3400.0100, M100.651, L501.9985, BTSPAT ####[facility] [address] [place], [address] Nucleated RBC (Bld) [#/Vol] 0.4 10*3/uL Normal 0-5 [facility] Comment on above: Performed By: #### L 300.4310, L100.0100, L300.3900, L3400.0100, M100.651, L501.9985, BTSPAT ####[facility] [address] [place], [address] Platelet mean volume (Bld) [Entitic vol] 8.8 fL Normal 6.2-12.0 [facility] Comment on above: Performed By: #### L 300.4310, L100.0100, L300.3900, L3400.0100, M100.651, L501.9985, BTSPAT ####[facility] [address] [place], [address] Platelets (Bld) [#/Vol] 159 10*3/uL Normal 150-450 [facility] Comment on above: Performed By: #### L 300.4310, L100.0100, L300.3900, L3400.0100, M100.651, L501.9985, BTSPAT ####[facility] [address] [place], [address] RBC (Bld) [#/Vol] 4.68 10*6/uL Normal 4.2-5.4 [facility] Comment on above: Performed By: #### L 300.4310, L100.0100, L300.3900, L3400.0100, M100.651, L501.9985, BTSPAT ####[facility] [address] [place], [address] RDW SD 44.6 fl High 35.1-43.9 [facility] Comment on above: Performed By: #### L 300.4310, L100.0100, L300.3900, L3400.0100, M100.651, L501.9985, BTSPAT ####[facility] [address] [place], [address] WBC (Bld) [#/Vol] 5.2 10*3/uL Normal 4.4-11.[address] [facility] Comment on above: Performed By: #### L 300.4310, L100.0100, L300.3900, L3400.0100, M100.651, L501.9985, BTSPAT ####[facility] [address] [place], [address] Determination of erythrocyte mean corpuscular volume (MCV)Ordered By: Dr. Craig on 08-01-2022 MCV (RBC) [Entitic vol] 89.3 fL 81-99 [facility] Hematocrit Auto (Bld) [Volum e fraction]Ordered By: Dr. Craig on 08-01-2022 Hematocrit (Bld) [Volume fraction] 41.8 % 37-47 [facility] Hemoglobin A1con 08-01-2022 HbA1c (Bld) [Mass fraction] 5.0 % Normal 3.8-5.6 [facility] Comment on above: Result Comment: Norm al < 5.7 % Prediabetic 5.7 - 6.4 % Diabetic >or= 6.5 % Please note range changes. Performed By: #### L 300.4310, L100.0100, L300.3900, L3400.0100, M100.651, L501.9985, BTSPAT ####[facility] [address] [place], [address] INR in Blood by Coagulation assayOrdered By: Dr. Craig on 08-01-2022 INR Coag (Bld) [Relative time] 1.1 {INR} [facility] - Chemistry and C hemistry - challengeOrdered By: Dr. Montanez on 08-01-2022 CO2 [Moles/Vol] 29.0 mmol/L 21.0-32.0 [facility] Magnesium [Mass/Vol] 2.2 mg/dL 1.6-2.6 [facility] Urea nitrogen/Creatinine [Mass ratio] 19.7 mg/mg 10-20 [facility] - CoagulationOrde red By: Dr. Craig on 08-01-2022 aPTT Coag (Bld) [Time] 29.4 s 24.1-36.2 [facility] PT Coag (PPP) [Time] 14.1 s 11.7-14.9 [facility] - Hematology and Cell countsOrdered By: Dr. Craig on 08-01-2022 Erythrocyte distribution width (RBC) [Entitic vol] 44.6 fL 35.1-43.9 [facility] Erythrocyte distribution width (RBC) [Ratio] 13.6 % 11.6-14.6 [facility] Immature granulocytes/100 WBC (Bld) 0.400 % 0.0-0.9 [facility] Comment on above: IG% - Immature Granu locytes (promyelocytes, myelocytes and metamyelocytes) > 1% indicates that a LEFT SHIFT is Present. MCH (RBC) [Entitic mass] 28.8 pg 27.0-32.0 [facility] Nucleated RBC/100 WBC (Bld) [Ratio] 0.4 % 0-5 [facility] [Mass/Vol]Or dered By: Dr. Craig on 08-01-2022 MCHC (RBC) [Mass/Vol] 32.3 g/dL 32-36 [facility] Magnesiumon 08-01-2022 Magnesium [Mass/Vol] 2.2 mg/dL Normal 1.6-2.6 [facility] Comment on above: Performed By: #### L 501.5200, L500.2500 ####[facility] [address] [place], [place], [address] No Panel InformationOrdered By: Dr. Craig on 08-01-2022 Fructosamine 230 umol/L 0-285 [facility] Comment on above: Published reference interval for apparently healthysubjects between age 20 and 60 is 205 - 285 umol/L and in apoorly controlled diabetic population is 228 - 563 umol/Lwith a mean of 396 umol/L.Performed at: [facility] [place] [id number] Director: Andrea Taveras PhD, Phone: [phone] No Panel InformationOrdered By: Dr. Montanez on 08-01-2022 Estimated GFR (MDRD) Amer 101 mL/min >60 [facility] Comment on above: GFR Calc Estimated GFR (MDRD) Non-Af Amer 83 mL/min >60 [facility] Comment on above: Non- GFR Calc Partial Thromboplast Timeon 08-01-2022 aPTT Coag (Bld) [Time] 29.4 s Normal 24.1-36.2 [facility] Comment on above: Performed By: #### L 300.4310, L100.0100, L300.3900, L3400.0100, M100.651, L501.9985, BTSPAT ####[facility] [address] [place], [address] Platelets bldOrdered By: Dr. Craig on 08-01-2022 Platelets (Bld) [#/Vol] 159 10*3/uL 150-450 [facility] Prothrombin Time w/INRon INR Coag (PPP) [Relative time] 1.1 {INR} Normal [facility] Comment on above: Performed By: #### L 300.4310, L100.0100, L300.3900, L3400.0100, M100.651, L501.9985, BTSPAT ####[facility] [address] [place], [place], [address] PT Coag (PPP) [Time] 14.1 s Normal 11.7-14.9 [facility] Comment on above: Performed By: #### L 300.4310, L100.0100, L300.3900, L3400.0100, M100.651, L501.9985, BTSPAT ####[facility] [address] [place], [place], [id number] Serum or plasma calcium tosha urement (mass/volume)Ordered By: Dr. Montanez on 08-01-2022 Calcium [Mass/Vol] 9.0 mg/dL 8.5-10.[address] [facility] Serum or plasma creatinine m easurement (mass/volume)Ordered By: Dr. Montanez on 08-01-2022 Creatinine [Mass/Vol] 0.76 mg/dL 0.55-1.02 [facility] Comment on above: The validity of the calculated GFR & GFRAA in patients over 70 years has not been determined. Clinical correlation is essential. Serum or plasma urea nitroge n measurement (mass/volume)Ordered By: Dr. Montanez on 08-01-2022 Urea nitrogen [Mass/Vol] 15 mg/dL 7-18 [facility] Thin prep Papanicolaou smear with manual screeningOrdered By: Dr. Montanez on 08-01-2022 Thin prep Papanicolaou smear with manual screening 12 20- [facility] Type AND Screen - PAT ONLYon 08-01-2022 Ab SCREEN GEL Negative Normal [facility] Comment on above: Order Comment: Surge ry Date: 08/13/22Reason for Laboratory Test [id number] TOTAL HIP ROBOTIC ARM ASSIST Performed By: #### L 300.4310, L100.0100, L300.3900, L3400.0100, M100.651, L501.9985, BTSPAT ####[facility] [address] [place], [address] ABO and Rh group Nom (Bld) Blood group O Rh(D) negative Normal [facility] Comment on above: Order Comment: Surge ry Date: 08/13/22Reason for Laboratory Test PRE-[id number] TOTAL HIP ROBOTIC ARM ASSIST Performed By: #### L 300.4310, L100.0100, L300.3900, L3400.0100, M100.651, L501.9985, BTSPAT ####[facility] [address] [place], [address] Whole blood hemoglobin A1c/t otal hemoglobin ratio (mass fraction)Ordered By: Dr. Craig on 08-01-2022 HbA1c (Bld) [Mass fraction] 5.0 % 3.8-5.6 [facility] Comment on above: Normal < 5.7 % Predi abetic 5.7 - 6.4 % Diabetic >or= 6.5 % Please note range changes. Extremity Lower without Cont raon 07-25-2022 Extremity Lower without Contra [facility] Imaging Services [address] [place] [address] Extremity Lower without Contra MR#: [id number] Acct: [id number] Name: KATHY JACKSON NIA Rep #: [id number] : 1965 F 56 From: Trenton Gaming MD PCP: Dr. Naun Kaba, Status: REG CLI Study: Extremity Lower without Contra Date of Exam: 09/25/21 Exam# [id number] Ordering Dr: Pradeep Craig DO EXAM: CT RIGHT LOWER EXTREMITY WITHOUT INTRAVENOUS CONTRAST CLINICAL INDICATION: templating for right PENNY-joel TECHNIQUE: Helically acquired images were obtained of the right lower extremity without intravenous contrast. 2-D reformats were performed by the technologist. CTDIvol = ( 14.07 ) mGy, DLP = ( 880.61 ) mGycm This CT exam was performed using one or more of the following dose reduction techniques: automated exposure control, adjustment of the mA and/or kV according to patient size, and/or use of iterative reconstruction technique. This report was created using [employer] report generation technology. COMPARISON: None. FINDINGS: Endstage/severe right hip osteoarthrosis. Moderate osteoarthrosis of the left hip. At least moderate left and right knee tricompartmental osteoarthrosis with moderate-size left knee joint effusion and small right knee joint effusion. No unusual lytic or sclerotic lesions of bone Degenerative changes of the SI joints, lumbar spine, and pubic symphysis. Intramuscular small ossifications along the anterior aspect of the right hip. Bilateral tubal ligation. No other soft tissue abnormalities within the pelvis. Small fat-containing umbilical hernia. CT/Extremity Lower without Contra IMPRESSION: Preoperative planning study showing severe/end-stage right hip osteoarthrosis. Ancillary findings as above. Electronically Signed: Trenton Gaming MD at 18:06 EST Reading Location ID and State: [address] [place] [address] Tel , Service support , CC: Dr. Pradeep Craig DO; Dr. 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 Pradeep zhao DO Age/Sex: 56/F Location[place] [facility] Status: Signed Intake Intake Visit Reasons: RIGHT HIP Chief Complaint: right knee Allergies No Known Allergies Allergy (Verified 06/26/22 15:21) Medications amlodipine 10 mg tablet 10 mg PO DAILY PRN raynauds disease 01/27/19 [History Confirmed 07/15/22] cholecalciferol (vitamin D3) 125 mcg (5,000 unit) capsule 125 mcg PO DAILY 06/05/22 [History Confirmed 07/15/22] hydroxychloroquine 200 mg tablet 200 mg PO 06/05/22 [History Confirmed 07/15/22] mecobalamin (vitamin B12) 5,000 mcg chewable tablet 5,000 mcg PO DAILY 06/05/22 [History Confirmed 07/15/22] omeprazole magnesium 20 mg tablet,delayed release (Prilosec OTC) 20 mg PO DAILY 06/05/22 [History Confirmed 07/15/22] [facility] Medical History COVID-19 CREST syndrome Hypersomnia Raynaud's disease Sleep apnea Surgical History History of esophagogastroduodenoscopy (EGD) Hx of colonoscopy Hx of dilation and curettage s/p vein surgery Family History Mother Hypertension Sister Hypertension Other CAD (coronary artery disease) Social History Smoking Status: Never smoker alcohol intake: never HPI RIGHT HIP Details: Parts of this documentation were recorded by a scribe, this documentation accurately reflects the service provided and the decisions made by me, Dr. Pradeep Craig, DO 07/15/22 1003. KATHY JACKSON is a 56 year old F here today for BL leg pain she states that she has right groin pain and lateral hip pain that radiates to the right knee and she has right knee pain. She states that she has left sided anterior thigh pain and left knee pain as well. She does have occasional intermittent numbness of the right anterior knee/thigh that stops at the knee. She states that she also has a burning sensation over the anterior knee when she is standing or ambulation for prolonged periods. Denies any low back pain. She has completed PT for the hips which has not helped with her pain. She did have Euflexxa injections of the right knee 3rd injection was 06/26/22 and this has not been helpful. Denies any surgery of the BL Knees or hips. She has pain with any ambulation. She does take Aleve everyday for her pain. She is being treated with Plaquinil for CREST and Dr. Kaba is managing this . Ortho Exam General General: Yes no acute distress Neurologic: Yes alert and Yes oriented x3 Psychologic: Yes reasonable and appropriate Right Knee Skin/Wound: Yes CDI, No erythema, No ecchymosis and No swelling Homans Sign: No Knee ROM: No ROM-Extension -20 to 0 (lackign 6) and No ROM-Flexion 0-140 (118) Examination: Yes Med jt line tenderness, No Lat jt line tenderness, No Crepitus and Yes Pain with flexion Stability: NML: Anterior Drawer, NML: Posterior Drawer, NML: Varus 0 and NML: Varus 30 and 1+: Valgus 0 and 1+: Valgus 30 (3mm medial gapping d/t joint space narrowing) Patella Translation: 1 Left Knee Patella Translation: 1 Right Hip Skin: No Ecchymosis, No soft tissue swelling and No Erythema Special Tests: No TTP Greater Troch, Yes RROM flexion pain, Yes C sign and Yes FADER Homans Sign: No HIP: 10 internal rotation with reproduction of groin pain 25 external rotation with reproduction of groin pain 4/5 hip flexion with pain over anterior thigh 5/5 abduction 5/5 plantar/dorsiflexion varicose veins Coding Level of Care Code Off vis,est,level 3 Diagnoses Osteoarthritis of right hip M16.11 Osteoarthritis of right knee M17.11 Assessment and Plan Assessment and Plan (1) Osteoarthritis of right hip: Status: Acute (2) Osteoarthritis of right knee: Status: Acute Plan Details Additional Comments: reviewed X-rays of patient's right hip and right knee. Personally reviewed x-rays. There is no obvious fracture, dislocation, or lucency noted. Patient educated that she has advanced osteoarthritis of the right hip and the medial compartment of right knee. Educated that the right groin pain and some medial thigh pain can be from the hip arthritis. Treatment options for the right hip are PT, NSAIDS or right PENNY. Risks, benefits and alternatives of surgery reviewed including but not limited to bleeding, infection, nerve, artery and/or tissue damage, fracture, VTE, leg length discrepancy, foot drop, dislocation, need for hip precautions, continued pain and expected post- operative course. Treatment options for the right (more content not included)... Normal [facility] Orthopedic Visit Reporton Orthopedic Visit Report [facility] [facility] [address] [place] [address] OFFICE VISIT Date of Service: 06/26/22 MR#: [id number] Acct: [id number] Name: KATHY JACKSON Rep #: [id number] : 1965 Provider: BROOKE Montes Age/Sex: 56/F Location: [facility] Status: Signed Intake Intake Visit Reasons: RIGHT KNEE Chief Complaint: right knee Allergies No Known Allergies Allergy (Verified 06/26/22 15:21) Medications amlodipine 10 mg tablet 10 mg PO DAILY PRN raynauds disease 01/27/19 [History Confirmed 06/26/22] cholecalciferol (vitamin D3) 125 mcg (5,000 unit) capsule 125 mcg PO DAILY 06/05/22 [History Confirmed 06/26/22] hydroxychloroquine 200 mg tablet 200 mg PO 06/05/22 [History Confirmed 06/26/22] mecobalamin (vitamin B12) 5,000 mcg chewable tablet 5,000 mcg PO DAILY 06/05/22 [History Confirmed 06/26/22] omeprazole magnesium 20 mg tablet,delayed release (Prilosec OTC) 20 mg PO DAILY 06/05/22 [History Confirmed 06/26/22] [facility] Medical History COVID-19 CREST syndrome Hypersomnia Raynaud's disease Sleep apnea Surgical History History of esophagogastroduodenoscopy (EGD) Hx of colonoscopy Hx of dilation and curettage s/p vein surgery Family History Mother Hypertension Sister Hypertension Other CAD (coronary artery disease) Social History Smoking Status: Never smoker alcohol intake: never HPI RIGHT KNEE Details: Parts of this documentation were recorded by a scribe, this documentation accurately reflects the service provided and the decisions made by Anastasia meyer PA 06/26/22 1519. KATHY JACKSON is a 56 year old F here today for 3rd Euflexxa injection into her right knee. States that her knee is still painful. States that it is a mix between just her knee pain and her going to PT. Would like to proceed with Euflexxa injection today. Has not noticed much difference yet in her pain from the injections. Denies any other changes since her last visit. ROS Const Denies chills and Denies fever(s) Card Denies dyspnea Resp Denies dyspnea GI Denies nausea and Denies vomiting Musc Reports as per HPI and Reports arthralgias Skin/Breast Denies rash Ortho Exam General General: Yes no acute distress Neurologic: Yes alert and Yes oriented x3 Psychologic: Yes reasonable and appropriate Right Knee Skin/Wound: No erythema, No ecchymosis and No swelling Homans Sign: No Knee ROM: No ROM-Extension -20 to 0 (Lacking 10 degrees) and No ROM-Flexion 0-140 (100 degrees of flexion) Examination: Yes Med jt line tenderness, No Lat jt line tenderness, No Laura's Test, Yes TTP Pes Anserine and No Illiotibial band tenderness Stability: NML: Anterior Drawer, NML: Posterior Drawer and NML: Varus 0 and 1+: Valgus 0 Patella Translation: 1 Patella Grind: Yes KNEE: Upon inspection of the left knee there is no evident erythema, ecchymosis, swelling or signs of infection. Active range of motion, lacking 10 degrees of extension and has 100 degrees of flexion. No evident joint effusion. Evident varicose veins that are nontender to touch. Intact sensation to light touch throughout right lower extremity. Able to plantarflex and dorsiflex. Soft compartments. Left Knee Patella Translation: 1 Office Meds Euflexxa Performing Provider: BROOKE Sierra Administered by: Za Snip on 06/26/22 15:59 Dose Route Admin Location Lot Number Expiration Date [facility] Manufactu rer 10 mg intra-articular Right Knee [id number] 05/13/23 [address]-8 [facility] Coding Level of Care Code Attention [employer] Diagnoses Osteoarthritis of right knee M17.11 Comment CPT???86634 already applied Assessment and Plan Assessment and Plan (1) Osteoarthritis of right knee: Status: Acute Plan: Patient presents to the office today for third Euflexxa injection into her right knee. She states that she is sore from physical therapy and has not noticed any difference in her pain from the prior injections at this time. Risks and benefits of the injection were discussed with patient in detail and all of her questions were answered. Consent was obtained and signed for today in the office. Injection was then given under normal sterile fashion. Patient tolerated the procedure with minimal discomfort. No complications were observed. Discussed that she should ice for the next few days and take pain relievers as needed if there are no contraindications. She should monitor for any erythema, increased pain, increased swelling, warmth, or any other signs or symptoms and notify the office. She should continue with physical therapy. She will follow up (more content not included)... Normal [facility] Orthopedic Visit Reporton Orthopedic Visit Report [facility] [address] [place] [address] OFFICE VISIT Date of Service: 06/19/22 MR#: [id number] Acct: [id number] Name: KATHY JACKSON NIA Rep #: [id number] : 1965 Provider: BROOKE Yan Age/Sex: 56/F [place] [facility] Status: Signed Intake Intake Visit Reasons: RIGHT KNEE Chief Complaint: right hip Is patient in pain?: Yes Allergies No Known Allergies Allergy (Verified 01/09/22 10:07) Medications amlodipine 10 mg tablet 10 mg PO DAILY PRN raynauds disease 01/27/19 [History Confirmed 06/19/22] cholecalciferol (vitamin D3) 125 mcg (5,000 unit) capsule 125 mcg PO DAILY 06/05/22 [History Confirmed 06/19/22] hydroxychloroquine 200 mg tablet 200 mg PO 06/05/22 [History Confirmed 06/19/22] mecobalamin (vitamin B12) 5,000 mcg chewable tablet 5,000 mcg PO DAILY 06/05/22 [History Confirmed 06/19/22] omeprazole magnesium 20 mg tablet,delayed release (Prilosec OTC) 20 mg PO DAILY 06/05/22 [History Confirmed 06/19/22] [facility] Medical History (Updated 06/05/22 @ 09:44 by Maggy Vazquez) COVID-19 CREST syndrome Hypersomnia Raynaud's disease Sleep apnea Surgical History (Updated 06/05/22 @ 08:57 by Maggy Vazquez) History of esophagogastroduodenoscopy (EGD) Hx of colonoscopy Hx of dilation and curettage s/p vein surgery Family History (Updated 06/05/22 @ 08:57 by Maggy Vazquez) Mother Hypertension Sister Hypertension Other CAD (coronary artery disease) Social History Smoking Status: Never smoker alcohol intake: never HPI RIGHT KNEE Details: Parts of this documentation were recorded by a scribe, this documentation accurately reflects the service provided and the decisions made by me, BROOKE Zepeda 06/19/22 4520. KATHY JACKSON is a 56 year old F here today for 2nd euflexxa injection right knee. Denies any relief from the 1st injection last week. She states that she had PT yesterday and she is very sore/stiff today from the therapy. Denies any other changes. Ortho Exam General General: Yes no acute distress Neurologic: Yes alert and Yes oriented x3 Psychologic: Yes reasonable and appropriate Right Knee Homans Sign: No Knee ROM: No ROM-Extension -20 to 0 and No ROM-Flexion 0-140 Examination: Yes Med jt line tenderness, No Lat jt line tenderness and Yes TTP Pes Anserine KNEE: No acute or gross abnormalities on inspection. No obvious effusions and there is no overlying ecchymosis/bruising, erythema, or any signs of acute inflammation or infection. She has good sensation to light touch throughout the extremity. No calf tenderness. Office Procedures Euflexxa Procedure Yes Office Meds Euflexxa Performing Provider: BROOKE Staton Administered by: BROOKE Staton on 06/19/22 15:16 Dose Route Admin Location Lot Number Expiration Date [facility] Manufactu rer 20 mg intra-articular right knee [id number] 05/13/23 [address]-8 [facility] Coding Level of Care Code Attention Jessica Diagnoses Osteoarthritis of right knee M17.11 Right knee pain M25.561 CPT Codes Euflexxa Procedure - Euflexxa Charge: Yes () Comment CPT??? already applied Assessment and Plan Assessment and Plan (1) Osteoarthritis of right knee: Status: Acute (2) Right knee pain: Status: Acute Orders: Orders Euflexxa Injection Today M17.11 - Unilateral primary osteoarthritis, right knee Plan Patient presents the office today for her second Euflexxa injection into the right knee. Patient has no questions or concerns regarding the injections today. We did discuss that she really should not past does not these until several weeks after the third injection. She states she has not seen any difference after 1 injection thus far. No complications with first. Injection then given today under normal sterile fashion with patient seated upright in knee flexed 90 degrees with gravity. Anterior/lateral compartment approach used to deliver the constant syringe without resistance. Patient tolerated procedure with minimal discomfort and no complications were observed. Patient ice and is already taking Aleve which she can take like she always has. Notify with any erythema, warmth, increased pain, swelling, or any other signs or symptoms. This note was generated with Posterbee dictation software. It may contain incorrect words, spelling, and punctuation that were not noted in checking the note before signing. Plan Details Follow Up: 1 Week 06/19/22 1546 Date Herbie Romero Signature: Date (if applicable) CC: Normal [facility] Inital Evaluation (1) - PTon 06-12-2022 Inital Evaluation (1) - PT [facility] Physical Therapy [facility] [address] [place] [address]. [address] [place] [address] / REHABILITATION SERVICES INITIAL EVALUATION MR#: [id number] Acct: [id number] Name: KATHY JACKSON NIA Rep #: [id number] : 1965 56 From: Haja Mckeon PT, Cert. T, OCS Referring Dr.: Dr. Pradeep Craig, DO Status: R EG RCR Insurance: [facility] PACKAGE PLAN [facility] Patient's Visit Information KATHY JACKSON is a 56 year old F referred to Physical Therapy by Dr. Pradeep Craig DO with a diagnosis of UNILATERAL NPRIMARY OSTEOARTHRITIS ,RIGHT HIP AND RIGHT OA KNEE. Date of Evaluation: 06/12/22 Physical Therapist: Haja Mckeon, PT, Cert MDT, OCS - Visit Plan Frequency: 2x /Week Duration: 4 Weeks Plan: PT INTERVETIONS ROM/FLEXABLITY ,STRENGTHNEING QUADS/HAMS/HIP ,FUNCTIONAL STRENGTHENING AND MODALTIES PRN - Subjective This 56 y/o female presents to physical therapy OA right hip and knee. Patient has had had right hip pain along with knee pain since Summer 2021. In meantime developed auto-immune disease (CREST ). Patient seen orthopedic DR recommended surgery vs surgery. Patient seen DR bo Bolivar in knee and cortisone . Patient is taking Aleve. Patient pain located right groin region to thigh. Aggravating steps , extended walking /standing ,unable to squat or kneel. Alleviating factor rest. Denies paresthesia/tingling -. Patient pain affects sleeping. Patient condition affects QOL. Patient goal to get stronger and avoid surgery. VOVATION: [place]. SOCAIL: and special needs son - Pain Right Hip Pain Intensity (Out of 10): 8 Pain Intensity Range: 10 Comment: groin .knee Right Knee Pain Intensity (Out of 10): 4 Pain Intensity Range: 10 - Objective POSTURE: mild forward posture. PALPATION: medial/lateral joint line. NEURO: denies paresthesia/tingling. GAIT: antalgic gait right side with decrease stance time. AROM: supine AROM supine knee flexion 30-105 degrees ,hip abduction 25 degrees ,hip flexion 90 degrees. MMT: ( peak force) quads 14,8,hamstrings 13.7 ,hip flexion 10,6 ,hip abduction. STAIRS: one step at time - Special Tests R Hip Scour: Positive R Knee Valgus - MCL: Negative R Knee Varus - LCL: Negative R Knee Patellar Apprehension - PFS: Positive R Knee Patellar Grind - PFS: Positive - Balance/Special Test Scores Lower Extremity Functional Score: 29 - Goals Goal 1:: I with HEP for ROM hip/knee Goal Time Frame: 4-6 Weeks Goal 2:: Patient to demonstrate 40 % improvement with increase function and and less pain Goal Time Frame: 4-6 Weeks Goal 3:: Patient to improve AROM hip/knee by 5-10 degrees to improve gait and stairs Goal Time Frame: 4-6 Weeks Goal 4:: Patient to improve peak force of quads/hip/hamstrings by 5-10 to improve gait and function Goal Time Frame: 4-6 Weeks - Rehabilitation Potential Physical Therapy Diagnosis: This patient has DJD in hip/knee could be candidate for surgery replacement with impairments with ROM decreased hip/knee ,weakness quads/hams ,hip impairs gait and ADLS and difficultly with stairs thus benefit from skilled PT Rehabilitation Potential: Fair - Anticipated Interventions Patient/Client Instruction: Educate patient on: Condition, Plan of Care For the Purpose of:: To decrease pain, To increase ROM, To improve muscle performance and motor function, To improve ability to perform ADL's, To increase tolerance to activity/condition/position, To improve performance and independence with ADL's, To improve health of tissue, To decrease soft tissue restriction, To increase flexibility/ROM, To improve balance, To improve tolerance to ADL's Therapeutic Exercise to Include: Strength training, Power training, Balance training, Flexibilty training, Passive ROM, Active ROM Comment: QUADS/HAMS /HIP For the Purpose of:: To decrease pain, To increase ROM, To improve muscle performance and motor function, To improve ability to perform ADL's, To increase tolerance to activity/condition/position, To improve ability of physical actions for home/community/work/leisure, To improve health of tissue, To decrease soft tissue restriction, To increase flexibility/ROM, To improve tolerance to ADL's TENS: Yes IF ES: Yes Cryotherapy (ice pack, ice massage): Yes Thermo therapy (hot pack): Yes Ultrasound (thermal/non thermal): Yes For the Purpose of:: To decrease pain, To increase ROM, To improve nutrient delivery to tissue, To increase oxygenation perfusion, To decrease soft tissue restriction, To increase flexibility/ROM Thank you for the opportunity to evaluate your patient. For Medicare and Medicare HMO plans, please review the plan of care and approve it. It will need to be FAXED BACK to us at [phone] for Medicare purposes. For Medicare only, by signing this I certify the plan of care. Please let (more content not included)... [facility] Orthopedic Visit Reporton Orthopedic Visit Report [facility] [place] [address] OFFICE VISIT Date of Service: 06/12/22 MR#: [id number] Acct: [id number] Name: KATHY JACKSON Rep #: [id number] : 1965 Provider: Dr. Pradeep zhao DO Age/Sex: 56/F Location: [facility] Status: Signed Intake Intake Visit Reasons: right knee Chief Complaint: right hip Accompanied by: Self Is patient in pain?: Yes Allergies No Known Allergies Allergy (Verified 01/09/22 10:07) Medications amlodipine 10 mg tablet 10 mg PO DAILY PRN raynauds disease 01/27/19 [History Confirmed 06/12/22] cholecalciferol (vitamin D3) 125 mcg (5,000 unit) capsule 125 mcg PO DAILY 06/05/22 [History Confirmed 06/12/22] hydroxychloroquine 200 mg tablet 200 mg PO 06/05/22 [History Confirmed 06/12/22] mecobalamin (vitamin B12) 5,000 mcg chewable tablet 5,000 mcg PO DAILY 06/05/22 [History Confirmed 06/12/22] omeprazole magnesium 20 mg tablet,delayed release (Prilosec OTC) 20 mg PO DAILY 06/05/22 [History Confirmed 06/12/22] [facility] Medical History (Updated 06/05/22 @ 09:44 by Maggy Vazquez) COVID-19 CREST syndrome Hypersomnia Raynaud's disease Sleep apnea Surgical History (Updated 06/05/22 @ 08:57 by Maggy Vazquez) History of esophagogastroduodenoscopy (EGD) Hx of colonoscopy Hx of dilation and curettage s/p vein surgery Family History (Updated 06/05/22 @ 08:57 by Maggy Vazquez) Mother Hypertension Sister Hypertension Other CAD (coronary artery disease) Social History Smoking Status: Never smoker alcohol intake: never HPI right knee Details: Parts of this documentation were recorded by a scribe, this documentation accurately reflects the service provided and the decisions made by me, Dr. Pradeep Craig DO 06/12/22 1028. KATHY JACKSON is a 56 year old F here today for right knee steroid injection and 1st Euflexxa injection right knee. She has been approved for Buy and Bill Euflexxa. She continues to have the right knee pain. Denies numbness, tingling or other associated symptoms. Ortho Exam General General: Yes no acute distress Neurologic: Yes alert and Yes oriented x3 Psychologic: Yes reasonable and appropriate Right Knee Homans Sign: No Knee ROM: No ROM-Extension -20 to 0 (lacking 8) and No ROM-Flexion 0-140 (105) Examination: Yes Med jt line tenderness, No Lat jt line tenderness, No Laura's Test and Yes TTP Pes Anserine Stability: NML: Anterior Drawer, NML: Posterior Drawer, NML: Varus 0 and NML: Varus 30 and 1+: Valgus 0 (3mm medial gapping with valgus stress secondary to joint space narrowing) and 1+: Valgus 30 Patella Grind: Yes KNEE: no joint effusion medial joint varicose veins, non tender no significant edema sensation intact to light touch Office Procedures Euflexxa Procedure Yes Office Meds Euflexxa Performing Provider: Pradeep Craig DO Administered by: Pradeep Craig DO on 06/12/22 10:43 Dose Route Admin Location Lot Number Expiration Date [facility] Manufactu rer 20 mg intra-articular right knee [id number] 05/13/23 [address]-3 [facility] Depo-Medrol Performing Provider: Pradeep Craig DO Administered by: Pradeep Craig DO on 06/12/22 10:43 Dose Route Admin Location Lot Number Expiration Date [facility] Manufactu rer 40 mg intra-articular right knee [id number] 11/16/24 0603-1522-53 [employer] Supplemental Info 06/05/2022 x-ray right hip: read as :End-stage right hip arthrosis with subchondral changes in the femoral head suggesting AVN. Orthopedic surgery consultation recommended 06/05/2022 x-ray right knee: Moderate to severe medial compartment narrowing moderate patellofemoral arthrosis with moderate spurs 05/29/2022 AP pelvis x-ray: Advanced right hip arthrosis heterotopic ossification lateral to right acetabulum left hip does demonstrate degenerative change to a lesser degree but moderate narrowing superiorly Coding Level of Care Code Tameka Lopez Diagnoses Osteoarthritis of right knee M17.11 CPT Codes Euflexxa Procedure - Euflexxa Charge: Yes () Assessment and Plan Assessment and Plan (1) Osteoarthritis of right knee: Status: Acute Orders: Orders Ortho Injections Today M17.11 - Unilateral primary osteoarthritis, right knee Euflexxa Injection Today M17.11 - Unilateral primary osteoarthritis, right knee Plan Right knee intra-articular steroid injection and right knee intra-articular Euflexxa injection given today patient tolerated well. She will follow-up in 1 week for repeat Euflexxa injection. 06/12/22 1158 Date Pradeep Craig DO Cosigner Signature: Date (more content not included)... Normal [facility] HIP, UNI W/ Pelvis 2-3 Views on 06-05-2022 HIP, UNI W/ Pelvis 2-3 Views [facility] [address] [place] [address] HIP, UNI W/ Pelvis 2-3 Views MR#: [id number] Acct: [id number] Name: KATHY JACKSON NIA Rep #: [id number] : 1965 F 56 From: Derik Johnson MD PCP: Dr. Naun Kaba DO Status: DEP AMB Study: HIP, UNI W/ Pelvis 2-3 Views Date of Exam: Exam# [id number] Ordering Dr: Pradeep Craig DO STUDY: X-RAY - PELVIS AND RIGHT HIP REASON FOR EXAM: Female, 56 years old. Pain and stiffness TECHNIQUE: 3 views of the pelvis and hip. COMPARISON: None. FINDINGS: There is a non-specific bowel gas pattern. Normal visualized soft tissue structures. Normal bilateral iliac wings, sacroiliac joints and visualized sacrum. Normal bilateral superior and inferior pubic rami. Normal pubic symphysis. Normal bilateral ischial tuberosities. End stage right hip arthrosis with obliteration of the right hip joint space with subchondral sclerosis in the femoral head. This is suggestive of AVN. No subchondral changes in the right acetabulum. Moderate left hip arthrosis without plain film evidence of AVN. Evidence of previous tubal ligation RAD/HIP, UNI W/ Pelvis 2-3 Views IMPRESSION: End-stage right hip arthrosis with subchondral changes in the femoral head suggesting AVN. Orthopedic surgery consultation recommended Age consistent left hip arthrosis No demonstrated fracture Electronically Signed: Jose Johnson MD at 9:57 EDT Reading Location ID and State: [address] [place] [address] , Service support , CC: Dr. Pradeep Craig DO; Dr. Naun Kaba DO Suction Plate Roller Hand: Signed Normal [facility] Knee 4 or More Viewson 06-05 Knee 4 or More Views [facility] [address] [place] [address] Knee 4 or More Views MR#: [id number] Acct: [id number] Name: KATHY JACKSON NIA Rep #: [id number] : 1965 F 56 From: Derik Johnson MD PCP: Dr. Naun Kaba DO Status: DEP AMB Study: Knee 4 or More Views Date of Exam: 06/05/22 Exam# [id number] Ordering Dr: Pradeep Craig DO STUDY: X-RAY - RIGHT KNEE REASON FOR EXAM: Female, 56 years old. Pain and stiffness TECHNIQUE: 4 view(s) of the knee. COMPARISON: None. FINDINGS: Normal visualized distal femur. Normal visualized proximal tibia and fibula. Normal proximal tibiofibular articulation. There is mild degenerative arthrosis of the medial femorotibial compartment. Normal lateral femorotibial compartment. Normal patellofemoral articulation. The soft tissue structures are unremarkable. RAD/Knee 4 or More Views IMPRESSION: Medial compartment arthrosis, no demonstrated fracture or suspicious osseous lesion Electronically Signed: Jose Johnson MD at 9:57 EDT , CC: Dr. Pradeep Craig DO; Dr. Naun Kaba DO Suction Plate Roller Hand: Signed Normal [facility] Orthopedic Visit Reporton Orthopedic Visit Report [facility] [address] [place] [address] OFFICE VISIT Date of Service: 06/05/22 MR#: [id number] Acct: [id number] Name: KATHY JACKSON NIA Rep #: [id number] : 1965 Provider: Dr. Pradeep zhao DO Age/Sex: 56/F [place] [facility] Status: Signed Intake Vital Signs 06/05/22 08:53 Height 5 ft 3 in Weight: 188 lb BMI 33.3 Intake Visit Reasons: Right hip Chief Complaint: right hip Is patient in pain?: Yes Pain scale (1-10): 8 Allergies No Known Allergies Allergy (Verified 01/09/22 10:07) Medications amlodipine 10 mg tablet 10 mg PO DAILY PRN raynauds disease 01/27/19 [History Confirmed 06/05/22] cholecalciferol (vitamin D3) 125 mcg (5,000 unit) capsule 125 mcg PO DAILY 06/05/22 [History Confirmed 06/05/22] hydroxychloroquine 200 mg tablet 200 mg PO 06/05/22 [History Confirmed 06/05/22] mecobalamin (vitamin B12) 5,000 mcg chewable tablet 5,000 mcg PO DAILY 06/05/22 [History Confirmed 06/05/22] omeprazole magnesium 20 mg tablet,delayed release (Prilosec OTC) 20 mg PO DAILY 06/05/22 [History Confirmed 06/05/22] [facility] Medical History (Updated 06/05/22 @ 09:44 by Maggy Vazquez) COVID-19 CREST syndrome Hypersomnia Raynaud's disease Sleep apnea Surgical History (Updated 06/05/22 @ 08:57 by Maggy Vazquez) History of esophagogastroduodenoscopy (EGD) Hx of colonoscopy Hx of dilation and curettage s/p vein surgery Family History (Updated 06/05/22 @ 08:57 by Maggy Vazquez) Mother Hypertension Sister Hypertension Other CAD (coronary artery disease) Social History Smoking Status: Never smoker alcohol intake: never HPI Right hip Details: Parts of this documentation were recorded by a scribe, this documentation accurately reflects the service provided and the decisions made by me, Dr. Pradeep Craig, DO 06/05/22 0751. KATHY JACKSON is a 56 year old F NEW patient referral from Dr. Kaba here today for right hip pain that she has been having since the end of February 2022. She states that she takes Aleve 2-3 tablets per day for her pain and she occasionally take Tylenol 500mg as well. She has right lateral and anterior thigh pain which she states is a stabbing pain with WB. Denies any injury. Denies any radiating pain past the knee. She does have occasional right groin pain. Denies any low back pain. Denies numbness, tingling or other associated symptoms. Denies any past surgery of the right hip. Denies any hx of right hip injections. She has had steroid injections in the right knee in the past. She states that 2019 she has had anterior thigh pains. She also wishes to bee seen for the right knee pain that she has been having since 2019. Denies any injury to the knee. She has all medial sided knee pain. She denies any painful mechanical knee pain. She does have occasional giving out of the knee which is painful. She has a total of 2 steroid injections of the right knee, last was in 2019. She She does use a compression brace as needed. She has also tried Voltaren gel which provides temporary relief from the knee pain. Denies any formal PT. Ortho Exam General General: Yes no acute distress Neurologic: Yes alert and Yes oriented x3 Psychologic: Yes reasonable and appropriate Right Knee Homans Sign: No Knee ROM: No ROM-Extension -20 to 0 (lacking 8) and No ROM-Flexion 0-140 (105) Examination: Yes Med jt line tenderness, No Lat jt line tenderness, No Laura's Test and Yes TTP Pes Anserine Stability: NML: Anterior Drawer, NML: Posterior Drawer, NML: Varus 0 and NML: Varus 30 and 1+: Valgus 0 (3mm medial gapping with valgus stress secondary to joint space narrowing) and 1+: Valgus 30 Patella Translation: 1 Patella Grind: Yes KNEE: no joint effusion medial joint varicose veins, non tender no significant edema sensation intact to light touch Left Knee Patella Translation: 1 Right Hip Skin: Yes CDI, No Ecchymosis, No soft tissue swelling and No Erythema Special Tests: No TTP Greater Troch and No Illiotibial band tenderness Homans Sign: No HIP: 45 external rotation with anterior thigh pain 10 internal rotation with lateral thigh pain Hip range of motion causes hip and knee pain sensation intact to light touch naun distal thigh Supplemental Info 06/05/2022 x-ray right hip: read as :End-stage right hip arthrosis with subchondral changes in the femoral head suggesting AVN. Orthopedic surgery consultation recommended 06/05/2022 x-ray right knee: Moderate to severe medial compartment narrowing moderate patellofemoral arthrosis with moderate spurs 05/29/2022 AP pelvis x-ray: Advanced right hip arthrosis heterotopic ossification lateral to right acetabulum left hip does demonstrat (more content not included)... Normal [facility] Pelvis 1 or 2 Viewson 2021 Pelvis 1 or 2 Views [facility] [address] [place] [address] Pelvis 1 or 2 Views MR#: [id number] Acct: [id number] Name: KATHY JACKSON Rep #: [id number] : 1965 F 56 From: Naun Edwards MD PCP: Dr. Naun Kaba, DO Status: REG CLI Study: Pelvis 1 or 2 Views Date of Exam: 05/29/22 Exam# [id number] Ordering Dr: Naun Kaba DO STUDY: X-RAY - PELVIS REASON FOR EXAM: Female, 56 years old. PAIN TECHNIQUE: One view of the pelvis was obtained. COMPARISON: None. FINDINGS: There is a non-specific bowel gas pattern. Normal visualized soft tissue structures. Normal bilateral iliac wings, sacroiliac joints and visualized sacrum. Normal visualized bilateral superior and inferior pubic rami. Normal pubic symphysis. Normal ischial tuberosities. Surgical clips are seen bilaterally consistent with bilateral tubal ligation. Bilateral pelvic calcifications likely phleboliths. Severe right and moderate left hip joint space narrowing. There is a heterotopic ossification lateral to the right acetabular roof 1 x 1.2 cm. Right hip demonstrates moderate subchondral sclerosis in the superior femoral head, moderate osteophytic spurring at the base of the femoral head and moderate osteophytic spurring at the right acetabular rim. RAD/Pelvis 1 or 2 Views IMPRESSION: Severe right and moderate left hip osteophyte as. Status post tubal ligation. Electronically Signed: Naun Edwards MD, MENDOZA at 15:34 EDT Reading Location ID and State: [facility] / [place] Tel , Service support , CC: Dr. Naun Kaba DO [employer] Hand: Signed Normal [facility] Absolute lymphocyte counton 11-01-2021 Lymphocytes Auto (Unsp spec) [#/Vol] 1.28 10*3/uL 0.83-4.51 [facility] Work Phone: Basophil percentageon 2021 Basophils/100 WBC (Bld) 0.8 % 0-1 [facility] Work Phone: Bilirubin [Mass/Vol] 0.40 mg/dL 0.20-1.00 [facility] Work Phone: Comment on above: For patients on eltr ombopag therapy, use of Dimension [place] TBIL is not recommended. Chloride [Moles/Vol] 104 mmol/L 98-107 [facility] Work Phone: Eosinophils/100 WBC (Bld) 2.6 % 0-5 [facility] Work Phone: Glucose [Mass/Vol] 85 mg/dL 74-[address] [facility] Work Phone: Neutrophils (Bld) [#/Vol] 4.6 10*3/uL 2.0-7.7 [facility] Work Phone: Neutrophils/100 WBC (Bld) 69.6 % 47-70 [facility] Work Phone: Potassium [Moles/Vol] 3.6 mmol/L 3.5-5.1 [facility] Work Phone: Protein [Mass/Vol] 8.0 g/dL 6.4-8.[address] [facility] Work Phone: Sodium [Moles/Vol] 136 mmol/L 136-[address] [facility] Work Phone: WBC (Bld) [#/Vol] 6.6 10*3/uL 4.4-11.[address] [facility] Work Phone: Blood erythrocytes count (nu mber/volume)on 11-01-2021 RBC (Bld) [#/Vol] 4.69 10*6/uL 4.2-5.4 [facility] Work Phone: Blood hemoglobin measurement (mass/volume)on 11-01-2021 Hemoglobin (Bld) [Mass/Vol] 14.5 g/dL 12.0-15.0 [facility] Work Phone: Blood lymphocytes/100 leukoc yteson 11-01-2021 Lymphocytes/100 WBC (Bld) 19.4 % 19-41 [facility] Work Phone: Blood monocytes/100 leukocyt eson 03-17-2022 Monocytes/100 WBC (Bld) 7.4 % 0-10 [facility] Work Phone: Blood platelet mean volumeon 11-01-2021 Platelet mean volume (Bld) [Entitic vol] 9.2 fL 6.2-12.0 [facility] Work Phone: Determination of erythrocyte mean corpuscular volume (MCV)on 11-01-2021 MCV (RBC) [Entitic vol] 90.6 fL 81-99 [facility] Work Phone: Hematocrit Auto (Bld) [Volum e fraction]on 11-01-2021 Hematocrit (Bld) [Volume fraction] 42.5 % 37-47 [facility] Work Phone: Laboratory - Chemistry and C hemistry - challengeon 11-01-2021 ALP [Catalytic activity/Vol] 84 U/L 45-117 [facility] Work Phone: ALT [Catalytic activity/Vol] 33 U/L 13-56 [facility] Work Phone: CO2 [Moles/Vol] 26.0 mmol/L 21.0-32.0 [facility] Work Phone: Globulin (S) [Mass/Vol] 3.8 g/dL 2.2-4.2 [facility] Work Phone: Urea nitrogen/Creatinine [Mass ratio] 22.3 mg/mg 10-20 [facility] Work Phone: Laboratory - Hematology and Cell countson 11-01-2021 Erythrocyte distribution width (RBC) [Entitic vol] 43.1 fL 35.1-43.9 [facility] Work Phone: Erythrocyte distribution width (RBC) [Ratio] 13.2 % 11.6-14.6 [facility] Work Phone: Immature granulocytes/100 WBC (Bld) 0.200 % 0.0-0.9 [facility] Work Phone: Comment on above: IG% - Immature Granu locytes (promyelocytes, myelocytes and metamyelocytes) > 1% indicates that a LEFT SHIFT is Present. MCH (RBC) [Entitic mass] 30.9 pg 27.0-32.0 [facility] Work Phone: Nucleated RBC/100 WBC (Bld) [Ratio] 0 % 0-5 [facility] Work Phone: MCHC Auto (RBC) [Mass/Vol]on 11-01-2021 MCHC (RBC) [Mass/Vol] 34.1 g/dL 32-36 [facility] Work Phone: No Panel Informationon 11-01 Estimated Creatinine Clearance Calc 77.56 ml/min [facility] Work Phone: Estimated GFR (MDRD) Amer 116 mL/min >60 [facility] Work Phone: Comment on above: GFR Calc Estimated GFR (MDRD) Non-Af Amer 96 mL/min >60 [facility] Work Phone: Comment on above: Non- GFR Calc Platelets bldon 11-01-2021 Platelets (Bld) [#/Vol] 200 10*3/uL 150-450 [facility] Work Phone: Serum or plasma albumin tosha urement (mass/volume)on 11-01-2021 Albumin [Mass/Vol] 4.2 g/dL 3.2-5.[address] [facility] Work Phone: Serum or plasma albumin/glob ulin mass ratioon 11-01-2021 Albumin/Globulin [Mass ratio] 1.1 {ratio} 0.9-2.4 [facility] Work Phone: Serum or plasma calcium tosha urement (mass/volume)on 11-01-2021 Calcium [Mass/Vol] 9.4 mg/dL 8.5-10.[address] [facility] Work Phone: Serum or plasma creatinine m easurement (mass/volume)on 11-01-2021 Creatinine [Mass/Vol] 0.67 mg/dL 0.55-1.02 [facility] Work Phone: Comment on above: The validity of the calculated GFR & GFRAA in patients over 70 years has not been determined. Clinical correlation is essential. Serum or plasma urea nitroge n measurement (mass/volume)on 11-01-2021 Urea nitrogen [Mass/Vol] 15 mg/dL 7-18 [facility] Work Phone: Thin prep Papanicolaou smear with manual screeningon 11-01-2021 Thin prep Papanicolaou smear with manual screening 17 U/L 15-37 [facility] Work Phone: Thin prep Papanicolaou smear with manual screening 6 5-15 [facility] Work Phone: Absolute lymphocyte counton 08-31-2021 Lymphocytes Auto (Unsp spec) [#/Vol] 1.06 10*3/uL 0.83-4.51 [facility] Work Phone: Basophil percentageon 2021 Basophils/100 WBC (Bld) 0.6 % 0-1 [facility] Work Phone: [phone] Bilirubin [Mass/Vol] 0.50 mg/dL 0.20-1.00 [facility] Work Phone: Comment on above: For patients on eltr ombopag therapy, use of Dimension [place] TBIL is not recommended. Chloride [Moles/Vol] 106 mmol/L 98-107 [facility] Work Phone: Eosinophils/100 WBC (Bld) 2.1 % 0-5 [facility] Work Phone: Glucose [Mass/Vol] 75 mg/dL 74-[address] [facility] Work Phone: Neutrophils (Bld) [#/Vol] 3.5 10*3/uL 2.0-7.7 [facility] Work Phone: Neutrophils/100 WBC (Bld) 67.3 % 47-70 [facility] Work Phone: Potassium [Moles/Vol] 3.8 mmol/L 3.5-5.1 [facility] Work Phone: Protein [Mass/Vol] 7.4 g/dL 6.4-8.[address] [facility] Work Phone: Sodium [Moles/Vol] 140 mmol/L 136-[address] [facility] Work Phone: WBC (Bld) [#/Vol] 5.2 10*3/uL 4.4-11.[address] [facility] Work Phone: Blood erythrocytes count (nu mber/volume)on 08-31-2021 RBC (Bld) [#/Vol] 4.20 10*6/uL 4.2-5.4 [facility] Work Phone: Blood hemoglobin measurement (mass/volume)on 08-31-2021 Hemoglobin (Bld) [Mass/Vol] 13.2 g/dL 12.0-15.0 [facility] Work Phone: [phone] Blood lymphocytes/100 leukoc yteson 08-31-2021 Lymphocytes/100 WBC (Bld) 20.4 % 19-41 [facility] Work Phone: [phone] Blood monocytes/100 leukocyt eson 08-31-2021 Monocytes/100 WBC (Bld) 9.4 % 0-10 [facility] Work Phone: Blood platelet mean volumeon 08-31-2021 Platelet mean volume (Bld) [Entitic vol] 8.6 fL 6.2-12.0 [facility] Work Phone: Determination of erythrocyte mean corpuscular volume (MCV)on 08-31-2021 MCV (RBC) [Entitic vol] 92.6 fL 81-99 [facility] Work Phone: [phone] Hematocrit Auto (Bld) [Volum e fraction]on 08-31-2021 Hematocrit (Bld) [Volume fraction] 38.9 % 37-47 [facility] Work Phone: Laboratory - Chemistry and C hemistry - challengeon 08-31-2021 ALP [Catalytic activity/Vol] 75 U/L 45-117 [facility] Work Phone: ALT [Catalytic activity/Vol] 37 U/L 13-56 [facility] Work Phone: CO2 [Moles/Vol] 28.0 mmol/L 21.0-32.0 [facility] Work Phone: Globulin (S) [Mass/Vol] 3.6 g/dL 2.2-4.2 [facility] Work Phone: Urea nitrogen/Creatinine [Mass ratio] 19.6 mg/mg 10-20 [facility] Work Phone: Laboratory - Hematology and Cell countson 08-31-2021 Erythrocyte distribution width (RBC) [Entitic vol] 49.7 fL 35.1-43.9 [facility] Work Phone: Erythrocyte distribution width (RBC) [Ratio] 14.9 % 11.6-14.6 [facility] Work Phone: Immature granulocytes/100 WBC (Bld) 0.200 % 0.0-0.9 [facility] Work Phone: Comment on above: IG% - Immature Granu locytes (promyelocytes, myelocytes and metamyelocytes) > 1% indicates that a LEFT SHIFT is Present. MCH (RBC) [Entitic mass] 31.4 pg 27.0-32.0 [facility] Work Phone: Nucleated RBC/100 WBC (Bld) [Ratio] 0 % 0-5 [facility] Work Phone: MCHC Auto (RBC) [Mass/Vol]on 08-31-2021 MCHC (RBC) [Mass/Vol] 33.9 g/dL 32-36 [facility] Work Phone: No Panel Informationon 08-31 Estimated GFR (MDRD) Amer 119 mL/min >60 [facility] Work Phone: Comment on above: GFR Calc Estimated GFR (MDRD) Non-Af Amer 98 mL/min >60 [facility] Work Phone: Comment on above: Non- GFR Calc Platelets bldon 08-31-2021 Platelets (Bld) [#/Vol] 170 10*3/uL 150-450 [facility] Work Phone: Serum or plasma albumin tosha urement (mass/volume)on 08-31-2021 Albumin [Mass/Vol] 3.8 g/dL 3.2-5.[address] [facility] Work Phone: Serum or plasma albumin/glob ulin mass ratioon 08-31-2021 Albumin/Globulin [Mass ratio] 1.1 {ratio} 0.9-2.4 [facility] Work Phone: Serum or plasma calcium tosha urement (mass/volume)on 08-31-2021 Calcium [Mass/Vol] 9.4 mg/dL 8.5-10.[address] [facility] Work Phone: Serum or plasma creatinine m easurement (mass/volume)on 08-31-2021 Creatinine [Mass/Vol] 0.66 mg/dL 0.55-1.02 [facility] Work Phone: Comment on above: The validity of the calculated GFR & GFRAA in patients over 70 years has not been determined. Clinical correlation is essential. Serum or plasma urea nitroge n measurement (mass/volume)on 08-31-2021 Urea nitrogen [Mass/Vol] 13 mg/dL 7-18 [facility] Work Phone: Thin prep Papanicolaou smear with manual screeningon 08-31-2021 Thin prep Papanicolaou smear with manual screening 14 U/L 15-37 [facility] Work Phone: Thin prep Papanicolaou smear with manual screening 6 5-15 [facility] Work Phone: Laboratory - Microbiology an d Antimicrobial susceptibilityon 07-26-2021 SARS-CoV-2 (COVID-19) RNA NOBLE+probe Ql (Unsp spec) Detected Not Detect [facility] Work Phone: Comment on above: Normal Reference Ran ge: Not DetectedMethod:(RT-PCR) real-time reverse transcriptase PCRLuLumafit Instrument*The Food and Drug Administration (FDA) has issued an Emergency Use Authorization (EAU) for the CONSUELO SARS-CoV-2 Assay for the rapid detection of the virus that causes COVID-19. This test has been validated, but the FDAs independent review of this validation is pending.*Negative results do not preclude infection and should not be used as the sole basis for treatment or patient management. Optimum specimen types and timing for peak viral levels during infections caused by SARS-CoV-2 have not been determined. Collection of multiple specimens from the same patient may be necessary to detect the virus. The possibility of a false negative result should be considered if the patient has clinical presentation or has had recent exposure. No Panel Informationon 07-26 SARS-CoV-2 Antigen (Rapid) SARS-CoV-2 (COVID 19) [facility] Work Phone: Respiratory Panel (PCR) [facility] Work Phone: No Panel Information Nasal Screen MRSA/MSSA [facility] Work Phone: Vital Signs Date Time Vital Sign Value Performing Clinician Faci lity 08-13-2022 17:31-0500 Body temperature 97.2 [degF] Dr. Naun Kaba Work Phone: [facility] 08-13-2022 17:31-0500 Diastolic blood pressure 74 mm[Hg] Dr. Naun Kaba Work Phone: [facility] 08-13-2022 17:31-0500 Heart rate 65 /min Dr. Naun Kaba Work Phone: [facility] 08-13-2022 17:31-0500 Respiratory rate 16 /min Dr. Naun Kaba Work Phone: [facility] 08-13-2022 17:31-0500 SaO2% (BldA) [Mass fraction] 97 % Dr. Naun Kaba Work Phone: [facility] 08-13-2022 17:31-0500 Systolic blood pressure 137 mm[Hg] Dr. Naun Kaba Work Phone: [facility] 08-13-2022 15:15-0500 Inhaled oxygen flow rate 4 L/min Dr. Naun Kaba Work Phone: [facility] 08-13-2022 09:32-0500 Body height 160.[address] Naun Kaba Work Phone: [facility] 08-13-2022 09:32-0500 Body mass index (BMI) [Ratio] 32.7 kg/m2 Dr. Naun Kaba Work Phone: [facility] 08-13-2022 09:32-0500 Body weight 83.[address] Naun Kaba Work Phone: [facility] 06-05-2022 08:53-0400 Body mass index (BMI) [Ratio] 33.3 kg/m2 Dr. Naun Kaba Work Phone: [facility] Work Phone: 06-05-2022 08:53-0400 Body weight 85.[address] Naun Kaba Work Phone: [facility] Work Phone: 11-01-2021 11:15-0400 Body height 160.[address] Naun Kaba Work Phone: [facility] Work Phone: 11-01-2021 11:15-0400 Body weight 79.[address] Naun Kaba Work Phone: [facility] Work Phone: 11-01-2021 11:15-0400 Heart rate 82 /min Dr. Naun Kaba Work Phone: [facility] Work Phone: 11-01-2021 11:15-0400 SaO2% (BldA) [Mass fraction] 99 % Dr. Naun Kaba Work Phone: [facility] Work Phone: 10-11-2021 05:59-0500 Body mass index (BMI) [Ratio] 32.9 kg/m2 Dr. Naun Kaba Work Phone: [facility] Work Phone: 10-11-2021 05:59-0500 Body temperature 97.3 [degF] Dr. Naun Kaba Work Phone: [facility] Work Phone: 10-11-2021 05:59-0500 Body weight [address] Naun Kaba Work Phone: [facility] Work Phone: 10-11-2021 05:59-0500 Diastolic blood pressure 85 mm[Hg] Dr. Naun Kaba Work Phone: [facility] Work Phone: 10-11-2021 05:59-0500 Heart rate 87 /min Dr. Naun Kaba Work Phone: [facility] Work Phone: 10-11-2021 05:59-0500 Respiratory rate 18 /min Dr. Naun Kaba Work Phone: [facility] Work Phone: 10-11-2021 05:59-0500 SaO2% (BldA) [Mass fraction] 97 % Dr. Naun Kaba Work Phone: [facility] Work Phone: 10-11-2021 05:59-0500 Systolic blood pressure 136 mm[Hg] Dr. Naun Kaba Work Phone: [facility] Work Phone: 07-26-2021 21:47-0500 Body mass index (BMI) [Ratio] 32.3 kg/m2 Dr. Naun Kaba Work Phone: [facility] Work Phone: 07-26-2021 21:47-0500 Body temperature 96.9 [degF] Dr. Naun Kaba Work Phone: [facility] Work Phone: 07-26-2021 21:47-0500 Body weight 81.[address] Naun Kaab Work Phone: [facility] Work Phone: 07-26-2021 21:47-0500 Diastolic blood pressure 80 mm[Hg] Dr. Naun Kaba Work Phone: [facility] Work Phone: 07-26-2021 21:47-0500 Heart rate 115 /min Dr. Naun Kaba Work Phone: [facility] Work Phone: 07-26-2021 21:47-0500 Respiratory rate 18 /min Dr. Naun Kaba Work Phone: [facility] Work Phone: 07-26-2021 21:47-0500 SaO2% (BldA) [Mass fraction] 93 % Dr. Naun Kaba Work Phone: [facility] Work Phone: 07-26-2021 21:47-0500 Systolic blood pressure 121 mm[Hg] Dr. Naun Kaba Work Phone: [facility] Work Phone: Encounters Encounter Date Encounter Type Care Provider Facility Start: 02-05-2023 End: 02-05-2023 ambulatory Naun Kaba Facility:[facility] Start: 01-28-2023 End: 01-28-[address] Naun Kaba Work Phone: [facility] Work Phone: Start: 01-28-2023 End: 01-28-[address] Naun Kaba Work Phone: [facility] Start: 01-21-2023 ambulatory Naun Kaba Facility: [facility] Start: 10-16-2022 End: 10-16-2022 ambulatory Naun Kaba Facility:[facility] Start: 10-16-2022 End: 10-16-[address] Naun Kaba Work Phone: [facility] Start: 10-16-[address] Naun Kaba Work Phone: [facility] Start: 10-09-2022 End: 10-09-2022 ambulatory Naun Sendy Facility:[facility] Start: 10-09-2022 End: 10-09-[address] Naun Kaba Work Phone: [facility] Start: 10-02-2022 End: 10-02-2022 ambulatory Naun [facility] Facility:[facility] Start: 10-02-2022 End: 10-02-[address] Naun Kaba Work Phone: [facility] Start: 09-25-2022 End: 09-25-[address] [facility] Facility:[facility] Start: 09-25-2022 End: 09-25-[address] Naun Kaba Work Phone: [facility] Start: 09-23-2022 End: 09-23-2022 ambulatory Naun Sendy Facility:[facility] Start: 09-23-2022 End: 09-23-[address] Naun Kaba Work Phone: [facility] Start: 09-11-2022 Encounter for other preprocedural examination Pradeep Craig [facility] Start: 09-11-2022 End: 09-11-2022 ambulatory Naun [facility] Start: 09-11-2022 End: 09-11-[address] Naun Kaba Work Phone: [facility] Start: 08-26-2022 End: 08-26-[address] [facility] Facility:[facility] Start: 08-26-2022 End: 08-26-[address] Naun Kaba Work Phone: [facility] Start: 08-13-2022 ambulatory Naun Kaba Facility: [facility] Start: 08-13-2022 Non-patient / Non-visit Dr. Ivania Kaba Work Phone: [facility] Start: 08-13-2022 End: 08-13-2022 ambulatory Naun Kaba Facility:[facility] Start: 08-13-2022 End: 08-13-2022 Admission to same day surgery center Dr. Naun Kaba Work Phone: [facility] Start: 08-13-2022 End: 08-13-[address] Naun Kaba Work Phone: [facility] Work Phone: Start: 08-01-2022 End: 08-01-2022 ambulatory Augusto Montanez Facility:[facility] Start: 08-01-2022 End: 08-01-2022 Non-patient / Non-visit Dr. Naun Kaba Work Phone: [facility] Start: 07-26-2022 Encounter for other preprocedural examination Pradeep Craig [facility] Start: 07-25-2022 End: 07-25-[address] Naun Kaba Work Phone: [facility] Start: 07-25-2022 End: 07-25-2022 ambulatory Naun Kaba Facility:[facility] Start: 07-15-2022 End: 07-15-2022 ambulatory Naun Kaba Facility:[facility] Start: 07-15-2022 End: 07-15-[address] Naun Kaba Work Phone: [facility] Start: 07-12-2022 End: 07-12-2022 ambulatory Naun Kaba Facility:[facility] Start: 07-12-[address] Naun Kaba Work Phone: [facility] Start: 06-26-2022 End: 06-26-2022 ambulatory Anastasia [facility] Facility:[facility] Start: 06-26-2022 End: 06-26-[address] Naun Kaba Work Phone: [facility] Start: 06-19-2022 End: 06-19-2022 ambulatory Naun Sendy Facility:[facility] Start: 06-19-2022 End: 06-19-[address] Naun Kaba Work Phone: [facility] Start: 06-12-2022 End: 06-12-2022 ambulatory [facility] [facility] Start: 06-12-2022 End: 06-12-[address] Naun Kaba Work Phone: [facility] Start: 06-05-2022 End: [facility] Start: 06-05-2022 End: 06-05-[address] Naun Kaba Work Phone: [facility] Start: 05-29-2022 End: 05-29-2022 ambulatory Naun Kaba Facility:[facility] Start: 05-29-2022 End: 05-29-[address] Naun Kaba Work Phone: [facility]-Radiology, [place] Start: 12-17-2021 End: 12-17-[address] Naun Kaba Work Phone: [facility]-Sleep Lab Start: 11-01-2021 Non-patient / Non-visit Dr. Ivania Kaba Work Phone: [facility] Start: 11-01-2021 End: 11-01-[address] Naun Kaba Work Phone: [facility]-Pulmonary Services/Neurology Start: 10-29-2021 Non-patient / Non-visit Dr. Ivania Kaba Work Phone: [facility] Start: 10-29-2021 End: 10-29-[address] [facility] Start: 10-11-2021 End: 10-11-[address] aNun Kaba [facility] Start: 08-31-2021 End: 08-31-[address] Naun Kaba Work Phone: [facility]-Laboratory, [place] Start: 07-26-2021 End: 07-27-2021 Emergency department patient visit Dr. Naun Kaba Work Phone: [facility]-Emergency Department Start: 07-26-2021 End: 07-26-[address] [facility] Procedures Date Procedure Procedure Detail Performing Clinician Start: 01-28-2023 Screening mammography Valentino Kaba Work Phone: Start: 09-23-2022 Plain x-ray of pelvi s and lower extremity Dr. Naun Kaba Work Phone: Start: 09-11-2022 Radiologic examinati on of knee Dr. Naun Kaba Work Phone: Start: 08-13-2022 Plain X-ray of hip Dr. Naun Kaba Work Phone: Start: 08-13-2022 Total Hip Replacemen t Robotic Arm Assist (Right) Dr. Naun Kaba Work Phone: Start: 07-25-2022 MRI of lower extremity Dr. Naun Kaba Work Phone: Start: 06-05-2022 Plain x-ray of pelvi s and lower extremity Dr. Naun Kaba Work Phone: Start: 06-05-2022 Radiologic examinati on of knee Dr. Naun Kaba Work Phone: Start: 05-29-2022 Pelvis X-ray Dr. Naun lema Work Phone: Start: 07-27-2021 SARS-CoV-2 Antigen (Rapid) Dr. Naun Kaba Work Phone: Start: 07-26-2021 Respiratory Panel (PCR) Dr. Naun Kaba Work Phone: Nasal Screen MRSA/MSSA Dr. Gena Kaba Work Phone: Nasal Screen MRSA/MSSA Dr. Gena Kaba Work Phone: Plan of Treatment Date Care Activity Detail Author Start: 08-13-2022 Anesthesia arthroscopic hip joint procedure ANESTH ARTHROSCOPY OF HIP [facility] Start: 08-13-2022 Arthroscopy hip w/acetabuloplasty HIP ARTHRO ACETABULOPLASTY [facility] Start: 08-13-2022 Application of ice collar, cap or bag [facility] Start: 08-13-2022 Exercises [facility] Start: 08-13-2022 Incentive spirometry [facility] Start: 08-13-2022 Neurovascular assessment [facility] Start: 08-13-2022 Patient discharge [facility] Start: 08-13-2022 Patient education [facility] Start: 08-13-2022 Provision of activity privileges [facility] Start: 08-13-2022 Recommendation to continue with treatment [facility] Start: 08-13-2022 Referral to service [facility] Start: 08-13-2022 Vital signs measurements [facility] Start: 08-13-2022 Wound care [facility] Start: 08-13-2022 [facility] Start: 06-05-2022 Patient referral [facility] Work Phone: Patient Education Coronavirus Di sease 2019 (COVID-19): Caring for Yourself or Others ED - COVID Monoclonal AB Infusion ... [facility] Work Phone: Patient referral [facility] Work Phone: Payers Date Payer Category Payer Self-pay [id number] 2022 Unknown [id number] 2022 Unknown [id number] Unknown [id number] 2.16.8 40.1.944723.3.579.2.462 Unknown [id number] 2.16.8 40.1.385918.3.579.2.462 Unknown [id number] 2.16.8 40.1.699279.3.579.2.462 Unknown [id number] 2.16.8 40.1.376511.3.579.2.462 Unknown [id number] 2.16.8 40.1.901928.3.579.2.462 Unknown [id number] 2.16.8 40.1.077803.3.579.2.462 Unknown [id number] 2.16.8 40.1.118269.3.579.2.462 Unknown [id number] 2.16.8 40.1.898426.3.579.2.462 Unknown [id number] 2.16.8 40.1.692513.3.579.2.462 Unknown [id number] 2.16.8 40.1.857131.3.579.2.462 Unknown [id number] 2.16.8 40.1.724851.3.579.2.462 Unknown [id number] 2.16.8 40.1.528181.3.579.2.462 Unknown [id number] 2.16.8 40.1.764628.3.579.2.462 Unknown [id number] 2.16.8 40.1.125310.3.579.2.462 Unknown [id number] 2.16.8 40.1.076536.3.579.2.462 Unknown [id number] 2.16.8 40.1.231820.3.579.2.462 Unknown [id number] 2.16.8 40.1.862033.3.579.2.462 Unknown [id number] 2.16.8 40.1.279808.3.579.2.462 Unknown [id number] 2.16.8 40.1.922027.3.579.2.462 Unknown [id number] 2.16.8 40.1.761558.3.579.2.462 Unknown [id number] 2.16.8 40.1.963813.3.579.2.462 Unknown [id number] 2.16.8 40.1.028237.3.579.2.462 Unknown [id number] 2.16.8 40.1.759801.3.579.2.462 Unknown [id number] 2.16.8 40.1.121305.3.579.2.462 Social History Date Type Detail Facility Start: 10-11-2021 End: 10-09-2022 Tobacco smoking status NHIS Unknown if ever smoked [facility] Start: 02-17-2019 Non-smoker [facility] Start: 1965 Sex Assigned At Female [facility] NEGATED: Highlighted row [facility] Medical Equipment Procedure Code Equipment Code Equipment Origin al Text Equipment Identifier Dates LOW PROFILE HEX SCREW FDA Sta rt: 08-13-2022 TRIDENT X3 10 DE GREE POLY INSERT FDA Start: 08-13-2022 TRIDENT ll TRITA NIUM CLUSTERHOLE ACETABULAR SHELL FDA Start: 08-13-2022 femoral head FDA Start: 08-13-2022 neck angle hip stem FDA Start : 08-13-2022 LOW PROFILE HEX SCREW FDA Sta rt: 08-13-2022 TRIDENT X3 10 DE GREE POLY INSERT FDA Start: 08-13-2022 TRIDENT ll TRITA NIUM CLUSTERHOLE ACETABULAR SHELL FDA Start: 08-13-2022 femoral head FDA Start: 08-13-2022 neck angle hip stem FDA Start : 08-13-2022 Goals Date Patient Goal Desired Activity /State Functional Status Date Assessment Result Facility 08-13-2022 Functional status Patient Activity Ambula natalio [facility] Work Phone: 08-13-2022 Functional status With Assist of [address] [facility] Work Phone: Mental Status Date Assessment Result Facility 08-13-2022 Cognitive function Voice/Name [facility] Work Phone: 07-27-2021 Cognitive function Level Of Cons ciousness Awake;Alert;Appropriate;Follow s Commands [facility] Work Phone: Clinical Note 08-13-2022 Note Date & Type Note Facility 08-13-2022 Note [facility] Medical Records Department [address] [place] [address] History Physical Exam 08/13/22 1051 MR#: [id number] Acct: [id number] Name: RENETTAKATHY NIA Rep #: [id number] : 1965 56 From: Pradeep Craig DO PCP: Dr. Naun Kaba, DO Status:[facility] Location: [place] [address] History and Physical Date of Admission: 08/13/22 [facility] [address] [place] [address] [address] [place] [address] OFFICE VISIT Date of Service:??? 07/15/22 MR#: [id number] Acct: [id number] Name:??? KATHY JACKSON NIA Rep #: [id number] : 1965 ? Provider: Dr. Pradeep Craig, DO Age/Sex:??? 56/F ? [place] [facility] Status: Signed Intake Intake Visit Reasons:???RIGHT HIP Chief Complaint: right knee Allergies No Known Allergies Allergy (Verified 06/26/22 15:21) Medications amlodipine 10 mg tablet 10 mg PO DAILY PRN raynauds disease 01/27/19 [History Confirmed 07/15/22] cholecalciferol (vitamin D3) 125 mcg (5,000 unit) capsule 125 mcg PO DAILY 06/05/22 [History Confirmed 07/15/22] hydroxychloroquine 200 mg tablet 200 mg PO 06/05/22 [History Confirmed 07/15/22] mecobalamin (vitamin B12) 5,000 mcg chewable tablet 5,000 mcg PO DAILY 06/05/22 [History Confirmed 07/15/22] omeprazole magnesium 20 mg tablet,delayed release (Prilosec OTC) 20 mg PO DAILY 06/05/22 [History Confirmed 07/15/22] PFSH Medical History??? COVID-19 CREST syndrome Hypersomnia Raynaud's disease Sleep apnea Surgical History??? History of esophagogastroduodenoscopy (EGD) Hx of colonoscopy Hx of dilation and curettage s/p vein surgery Family History??? Mother HypertensionSister HypertensionOther CAD (coronary artery disease) Social History??? Smoking Status:??? Never smoker alcohol intake:??? never HPI RIGHT HIP Details: Parts of this documentation were recorded by a scribe, this documentation accurately reflects the service provided and the decisions made by me, Dr. Pradeep Craig, DO 07/15/22 1003. KATHY JACKSON is a 56 year old F here today for??? BL leg pain she states that she has right groin pain and lateral hip pain that radiates to the right knee and she has right knee pain. She states that she has left sided anterior thigh pain and left knee pain as well. She does have occasional intermittent numbness of the right anterior knee/thigh that stops at the knee. She states that she also has a burning sensation over the anterior knee when she is standing or ambulation for prolonged periods. Denies any low back pain. She has completed PT for the hips which has not helped with her pain. She did have Euflexxa injections of the right knee 3rd injection was 06/26/22 and this has not been helpful. Denies any surgery of the BL Knees or hips. She has pain with any ambulation. She does take Aleve everyday for her pain. She is being treated with Plaquinil for CREST and Dr. Kaba is managing this . Ortho Exam General General: Yes no acute distress Neurologic: Yes alert and Yes oriented x3 Psychologic: Yes reasonable and appropriate Right Knee Skin/Wound: Yes CDI, No erythema, No ecchymosis and No swelling Homans Sign: No Knee ROM: No ROM-Extension -20 to 0 (lackign 6) and No ROM-Flexion 0-140 (118) Examination: Yes Med jt line tenderness, No Lat jt line tenderness, No Crepitus and Yes Pain with flexion Stability: NML: Anterior Drawer, NML: Posterior Drawer, NML: Varus 0 and NML: Varus 30 and 1+: Valgus 0 and 1+: Valgus 30 (3mm medial gapping d/t joint space narrowing) Patella Translation: 1 Left Knee Patella Translation: 1 Right Hip Skin: No Ecchymosis, No soft tissue swelling and No Erythema Special Tests: No TTP Greater Troch, Yes RROM flexion pain, Yes C sign and Yes FADER Homans Sign: No HIP: 10 internal rotation with reproduction of groin pain 25 external rotation with reproduction of groin pain 4/5 hip flexion with pain over anterior thigh 5/5 abduction 5/5 plantar/dorsiflexion varicose veins Coding Level of Care Code Off vis,est,level 3 Diagnoses Osteoarthritis of right hip??? M16.11 Osteoarthritis of right knee??? M17.11 Assessment and Plan Assessment and Plan (1) Osteoarthritis of right hip: ?Status:???Acute (2) Osteoarthritis of right knee: ?Status:???Acute Plan Details Additional Comments: reviewed X-rays of patient's right hip and right knee. Personally reviewed x-rays. There is no (more content not included)... [facility] Evaluation note Note Date & Type Note Facility Evaluation note Diagnosis Onset Date CREST syndrome acute Hypersomnia acute Raynaud's disease acute [facility] Work Phone: Evaluation note Note Date & Type Note Facility Evaluation note Diagnosis Onset Date Osteoarthritis of right hip acute Osteoarthritis of right knee acute Osteoarthritis of right knee acute Osteoarthritis of right knee acute Right knee pain acute Osteoarthritis of right knee acute Osteoarthritis of right hip acute Osteoarthritis of right knee acute [facility] Work Phone: Evaluation note Note Date & Type Note Facility Evaluation note Diagnosis Onset Date Orthopedic aftercare acute Osteoarthritis of left knee noneactive Orthopedic aftercare acute Osteoarthritis of left knee acute Osteoarthritis of left knee acute Osteoarthritis of left knee acute [facility] Work Phone: Evaluation note Note Date & Type Note Facility Evaluation note Diagnosis Onset Date Osteoarthritis of left knee acute [facility] Work Phone: Chief Complaint and Reason for Visit Chief Complaint GENERAL ILLNESS ARTHRITIS/PAIN- COPY PCP pulmonay hypertension M34.1 M34.1 [facility] PCP LABS HYPERSOMNIA; 1115 6 MIN WALK; CONF 3/14 [facility] PCP LABS Reason for Visit CREST syndrome Hypersomnia Raynaud's disease Chief Complaint ARTHRITIS/PAIN- COPY PCP pulmonay hypertension M34.1 M34.1 COPY PCP LABS HYPERSOMNIA; 1115 6 MIN WALK; CONF 3/14 [facility] PCP LABS OMI Reason for Visit CREST syndrome Hypersomnia Raynaud's disease Chief Complaint Right hip Room 1 xray right knee RIGHT KNEE RIGHT KNEE R PENNY RIGHT HIP TEMPLATING FOR RIGHT PENNY TOTAL HIP ROBOT RIGHT TOTAL HIP ROBOT RIGHT Reason for Visit Osteoarthritis of ri ght hip Osteoarthritis of right knee Osteoarthritis of right knee Osteoarthritis of right knee Right knee pain Osteoarthritis of right knee Osteoarthritis of right hip Osteoarthritis of right knee Chief Complaint TEMPLATING FOR RIGHT PENNY PREOP TOTAL HIP ROBOT RIGHT TOTAL HIP ROBOT RIGHT right hip room 1 left knee right hip Room 1 LEFT KNEE LEFT KNEE LEFT KNEE R PENNY Reason for Visit Orthopedic aftercare Osteoarthritis of left knee Orthopedic aftercare Osteoarthritis of left knee Osteoarthritis of left knee Osteoarthritis of left knee Chief Complaint LEFT KNEE R PENNY SCREENING Reason for Visit Osteoarthritis of le ft knee Family History No Family History Records Found Relationship Condition Age at Onset Recorded Date/T juan mother Hypertension Unknown sister Hypertension Unknown Coronary artery disease Unknown Relationship Condition Age at Onset Recorded Date/T juan Not Specified Coronary artery disease Unknown mother Hypertension Unknown sister Hypertension Unknown Advance Directives No Advanced Directives Records Found Advance Directive Response Recorded Date/ Time Living Will Yes [place] 10th, 2 021 1:30am Power of Tenderizer Tender No July 27, 2021 1:30am Advance Directive Response Recorded Date/ Time Living Will Yes July 30, 2 022 3:14pm Power of Tenderizer Tender No July 30, 2022 3:14pm Advance Directive Response Recorded Date/ Time Living Will Yes July 30, 2 022 4:14pm Power of Tenderizer Tender No July 30, 2022 4:14pm Summary Purpose Additional Source Comments Goals (unrecognized section and content) Goals may be documented in a n alternate sectionGoals may be documented in an alternate sectionGoals may be documented in an alternate section Care Teams (unrecognized sec tion and content) Team Status: Active Member Role Status Dates Dr. Naun Kaba DO Family Provider Active Dr. Naun Kaba DO Primary Care Provider Active Team Status: Inactive Member Role Status Dates Dr. Naun Kaba DO Primary Care Provider, Referrin g Provider Active Dr. Pradeep Craig DO Attending Provider Active Team Status: Active Member Role Status Dates Dr. Naun Kaba DO Primary Care Provider Active Dr. Pradeep Craig DO Attending Provid er, Referring Provider, Other Provider Active Team Status: Inactive Member Role Status Dates Dr. Naun Kaba DO Primary Care Provider Active Dr. Og Rose MD Attending Provider Active Team Status: Active Member Role Status Dates Dr. Naun Kaba DO Primary Care Provider Active Dr. Joaquim Cabrera MD Attending Provider Activ e Dr. Augusto Montanez MD Referring Provider Active Team Status: Inactive Member Role Status Dates Dr. Naun Kaba DO Primary Care Provider Active Dr. Pradeep Craig DO Attending Provider, Referring Provider Active Team Status: Active Member Role Status Dates Dr. Naun Kaba DO Primary Care Provider Active Dr. Pradeep Craig DO Attending Provider, Referring Provider Active Team Status: Inactive Member Role Status Dates Dr. Naun Kaba DO Primary Care Prov ider, Attending Provider, Referring Provider Active INFORMATION SOURCE (unrecogn ized section and content) DATE CREATED AUTHOR 02/07/2023 [facility] FOR RECORDS PERTAINING TO PATIENTS WHO ARE OR HAVE BEEN ENROLLED IN A CHEMICAL DEPENDENCY/SUBSTANCEABUSE PROGRAM, SOME INFORMATION MAY BE OMITTED. This clinical summary was aggregated from multiple sources. Caution should be exercised in using it in the provision of clinical care. This summary normalizes information from multiple sources, and as a consequence, information in this document may materially change the coding, format and clinical context of patient data. In addition, data may be omitted in some cases. CLINICAL DECISIONS SHOULD BE BASED ON THE PRIMARY CLINICAL RECORDS. [facility] [employer] [facility]. provides no warranty or guarantee of the accuracy or completeness of information in this document.
[2025-08-12 13:35] LABS: Hematocrit 39.6 % (37-47); Hemoglobin 13.4 g/dL (12.0-15.0); Immature Granulocytes Count 0.010 X10^3/uL (0.0-0.0); Mean Corp Hgb Conc 33.8 g/dL (32-36); Mean Corpuscular Volume 86.5 fL (81-99); Mean Platelet Vol. 8.6 fl (6.2-12.0); NRBC Flagged by Analyzer 0 % (0-5); Platelet Count 179 K/mm3 (150-450); RBC Distribution Width CV 13.8 % (11.6-14.6); RBC Distribution Width SD 43.8 fl (35.1-43.9); Red Blood Count 4.58 M/mm3 (4.2-5.4); White Blood Count 5.0 K/mm3 (4.4-11.0)
[2025-08-12 13:57] LABS: AST(SGOT) 25 U/L (<=31); Alanine Aminotransfer ALT/SGPT 30 U/L (<=34); Albumin, Serum 4.4 g/dL (3.5-5.0); Alkaline Phosphatase 82 U/L (35-104); Anion Gap 10 (7-18); BUN 17 mg/dL (4-19); BUN/Creat Ratio 23.9 RATIO (10-20); Calcium,Total 9.4 mg/dL (7.6-11.0); Carbon Dioxide 25.1 mmol/L (20.0-29.0); Chloride 106 mmol/L (96-106); Ferritin 82 ng/mL (22-378); Globulin 2.8 g/dL (2.2-4.2); Glucose 88 mg/dL (70-99); Iron 60 ug/dL (50-170); Magnesium 2.2 mg/dL (1.5-2.2); Potassium 4.1 mmol/L (3.5-5.1)
[2025-08-12 15:44] LABS: Cholesterol 173 mg/dL (<=200); Low Density Lipoprotein Calc. 85 mg/dL; Triglycerides 63 mg/dL; Very Low Density Lipoprotein 13 mg/dL (5-40); cholesterol:hdl ratio screen 2.29
== END | disposition home or self-care (01) ==
LOC: MTLAB 11:28
PROVIDERS: PCP Family Medicine; Referring Provider Family Medicine; Visit Provider Family Medicine
DX: I10 Essential (primary) hypertension (principal); D50.9 Iron deficiency anemia, unspecified; M79.10 Myalgia, unspecified site; R73.01 Impaired fasting glucose
CPT/HCPCS: 36415; 80053; 80061; 82728; 83036; 83540; 83735; 85025